=== PATIENT | female | born 1955 | race Caucasian/White ===

== ENCOUNTER 2025-02-22 10:10 | Emergency (ER) | payer OTHER, SELFPAY ==
[2025-02-22] VITALS (7 sets, daily range): BP systolic 117–129; BP diastolic 77–102; PULSE 115–146; RESP 16–27; TEMP 36.9–37.7; O2SAT 95–99; BMI 40.5; BMI 34.9
--- NOTE | 2025-02-22 10:12 | CT_ITS ---
PROCEDURE: STROKE BRAIN/HEAD WITHOUT CONT 02/22/2025 REASON FOR EXAM: NEURO DEFICIT, ACUTE, STROKE SUSPECTED TECHNIQUE: Procedure Code: CTBR.ST Modality: CT Procedure: STROKE BRAIN/HEAD WITHOUT CONT Coronal and Sagittal reconstruction series were provided. One or more dose reduction techniques were used (e.g., Automated exposure control, adjustment of the mA and/or kV according to patient size, use of iterative reconstruction technique. RADIATION DOSE SUMMARY: CTDlvol: 45 mGy DLP: 863 mGycm COMPARISON: None FINDINGS: Brain: Geographic low-density is seen in the left MCA distribution to include the M1, M2 and M3 distributions. There is also involvement of the insular cortex. There does not appear to be any involvement of the basal ganglia (ASPECTS 6). Mild mass effect is seen with 4.5 mm right midline subfalcine shift. No hemorrhage seen. CSF Spaces: Mild generalized cerebral atrophy Sinuses/Mastoids: Mastoid air cells are clear. Ceruminous seen in the external auditory canals. Sclerosis, thickening and partial opacification of the right maxillary sinus from chronic sinusitis. Frontal sinuses are nearly aplastic in the ethmoid sinuses are clear. Partial opacification right sphenoid sinus. Bones: No fracture CT/STROKE Brain/Head without Cont IMPRESSION: 1. No hemorrhage. Ischemia in the left MCA distribution as above. Mild midli ne subfalcine shift 4.5 mm to the right. 2. Chronic right maxillary sinusitis. 3. CTA is pending. Findings and impression of this report were called directly to Dr. Aponte at 10:27 AM EST. Reading Location: [id number]
--- NOTE | 2025-02-22 10:12 | EKG12_ITS ---
Test Reason : STROKE Blood Pressure : */* mmHG Vent. Rate : 115 BPM Atrial Rate : 322 BPM P-R Int : * ms QRS Dur : 78 ms QT Int : 358 ms P-R-T Axes : * 2 28 degrees QTcB Int : 495 ms Atrial flutter with variable A-V block Cannot rule out Inferior infarct , age undetermined QTcB >= 480 msec Abnormal ECG Confirmed by Jai Haywood ([id number]), social media editor NIGHAT BEDOLLA ([id number]) on 02/23/2025 10:58:24 AM Referred By: Confirmed By: Jai Haywood
--- NOTE | 2025-02-22 10:12 | CT_ITS ---
PROCEDURE: STROKE CTA HEAD AND NECK W/CON 02/22/2025 REASON FOR EXAM: NEURO DEFICIT, ACUTE, STROKE SUSPECTED TECHNIQUE: Procedure Code: CTCTA.ST.HN Modality: CT Procedure: STROKE CTA HEAD AND NECK W/CON Multiplanar Sagittal and Coronal images were obtained. 3D post processing was performed CONTRAST: Isovue 370 VOLUME: 100 mL One or more dose reduction techniques were used (e.g., Automated exposure control, adjustment of the mA and/or kV according to patient size, use of iterative reconstruction technique). RADIATION DOSE SUMMARY: CTDlvol: 53 mGy DLP: 691 mGycm COMPARISON: Head CT of the same day FINDINGS: Aortic Arch: Normal size and branching pattern. No significant atherosclerotic plaque. Brachiocephalic and Subclavians: Unremarkable RIGHT Carotid: Right CCA: Unremarkable. Right ICA: Mild atherosclerosis cavernous and supraclinoid portions. Maximum stenosis (NASCET): 0 % Right ECA: Unremarkable. LEFT Carotid: Left CCA: Unremarkable. Left ICA: Mild atherosclerosis cavernous and supraclinoid portions Maximum stenosis (NASCET): 0 % Left ECA: Unremarkable. Vertebrals: Codominant. Arise from the subclavians. Both vertebrals form the basilar. RIGHT Vertebral: Unremarkable. LEFT Vertebral: Unremarkable. 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 Aneurysm or avm: No intracranial aneurysms or large vascular malformations are identified. Anterior cerebral arteries: Unremarkable. Middle cerebral arteries: Normal on the right. No thrombus seen on the left but the vessel beyond the M2 distribution is very small caliber. Basilar artery: Small caliber but patent. Posterior cerebral arteries: origin bilaterally. Hypoplastic left P1 segment. Other major branches of the posterior circulation: Unremarkable. Major venous structures: Unremarkable. Other findings: Neck: No lymphadenopathy. Lungs: Lung apices are clear. Bones: CT/STROKE CTA Head AND Neck W/Con IMPRESSION: 1. No large vessel occlusion. Patent but pruned left MCA vasculature M2 and b eyond. 2. origin left posterior cerebral arteries. 3. No aneurysm in the head or neck. No carotid stenosis. Reading Location: [id number]
--- NOTE | 2025-02-22 10:13 | EDS_ITS ---
HPI History of Present Illness Chief Complaint: Stroke Alert Onset/Context/Timing Onset: Yesterday (6 PM) Timing: Continuous Quality and Location: Positive for Right Facial Droop, Right Arm Weakness and Right Leg Weakness Narrative Narrative: Patient presents with right-sided weakness was noticed today. Patient was last known well at 6 PM last evening. Patient is aphasic and is a poor informant. EMS noted patient to have right-sided facial weakness, right upper and right lower extremity weakness. EMS reports patient's blood sugar was 107. EMS noted that the left pupil was reactive and the right pupil was pinpoint. PFSH PFSH Home Medications ?Medication ?Instructions ?Recorded ?Last Taken ?Type albuterol sulfate 90 mcg/actuation 2 puff inhalation Q 4H PRN PRN 06/22/14 07/01/14 08:30 History aerosol inhaler (Ventolin HFA) Wheezing budesonide 180 mcg/actuation 2 puff inhalation DAILY 1 07/01/14 08:30 History breath activated powder inhaler (Pulmicort Flexhaler) hydrochlorothiazide 25 mg tablet 25 mg PO DAILY Unknown History levothyroxine 125 mcg tablet 125 mcg PO DAILY 06/22/14 Unknown History metoprolol tartrate 100 mg tablet 100 mg PO BID 07/01/14 06:30 History multivitamin,[id number] 27 1 tab PO QHS 06/22/14 Unknown History mg-0.4 mg tablet (Therems-M) oxycodone-acetaminophen 5 mg-325 1 - 2 tab PO Q4H PRN PRN Pain #30 07/01/14 Unknown Rx mg tablet tabs Allergy/AdvReac Type Severity Reaction Status Date / Time amoxicillin Allergy Rash Verified 06/22/14 14:32 cephalexin monohydrate (From Allergy Rash Verified 06/22/14 14:34 Keflex) minocycline Allergy Rash Verified 06/22/14 14:34 Penicillins Allergy Rash Verified 06/22/14 14:32 Sulfa (Sulfonamide Allergy Rash Verified 06/22/14 14:32 Antibiotics) Social History Smoking Status: Former smoker ROS ROS ED Review of Systems ROS Unobtainable: due to encephalopathy EXAM Physical Exam Const Vital Signs: 02/22/25 10:11 02/22/25 10:20 02/22/25 10:26 Temperature 98.4 F 98.7 F 98.7 F Temperature Source Oral Temporal Oral Pulse Rate 120 H 125 H 146 H Respiratory Rate 16 27 H 22 H Blood Pressure 122/102 H 117/77 125/96 H Blood Pressure Mean 108 90 105 Pulse Ox 97 95 95 Oxygen Delivery Method Room Air Room Air Room Air 02/22/25 10:36 02/22/25 10:37 02/22/25 10:55 Temperature 98.7 F 99.8 F H Temperature Source Temporal Pulse Rate 126 H 126 H Respiratory Rate 19 H 21 H Blood Pressure 122/102 H 118/91 H Blood Pressure Mean 108 100 Pulse Ox 95 97 Oxygen Delivery Method Room Air Room Air Positive well nourished and well developed General Appearance ED: well developed and NAD HEENT Reports moist mucous membranes Neck supple and no JVD Resp normal respiratory effort and clear to auscultation bilaterally Cardio Rate: tachycardic Rhythm: abnormal rhythm irregularly irregular GI soft to palpation, non-tender and non-distended Neuro Neuro Narrative: Strength is 5/5 of the left upper and lower extremities. Strength is 0/5 on the right upper and lower extremities. There is right facial droop noted. Patient does not speak. Sensorium / Orientation: alert Speech: Negative for speech normal MDM MDM MDM Narrative Medical decision making narrative: Differential diagnosis includes stroke, intracranial bleeding, cardiac dysrhythmia, cardiac ischemia, electrolyte abnormality, large vessel occlusion, carotid stenosis, and hypertensive emergency. EKG will be obtained to assess for cardiac dysrhythmia and cardiac ischemia. CT scan of the brain will be obtained to assess for intracranial bleeding and stroke. CTA of the head and neck will be obtained to assess for large vessel occlusion and carotid stenosis. Chest x-ray will be obtained to assess for pneumonia and bronchitis. CBC will be obtained to assess for leukocytosis and anemia. Basic metabolic profile will be obtained to assess for electrolyte abnormality renal function. PT with INR and PTT will be obtained to assess for coagulopathy. High-sensitivity troponin will be obtained to assess for cardiac ischemia. History & Record Review Discussion w/independent historian: EMS personnel Additional record(s) reviewed:: Prior outpatient record Lab Data Attestation: I reviewed the patient's lab results. Lab results narrative: CBC was reviewed. Hemoglobin is slightly elevated at 17.1. The remainder is within normal limits. Basic metabolic profile was reviewed and was within normal limits. PT with INR and PTT were reviewed and were within normal limits. High-sensitivity troponin was reviewed and was normal at 10. Labs: Laboratory Results - last 24 hr 02/22/25 10:15 WBC 7.1 RBC 5.84 H Hgb 17.1 H Hct 49.0 H MCV 83.9 MCH 29.3 MCHC 34.9 RDW Std Deviation 44.0 H RDW Coeff of Jayy 14.6 Plt Count 218 MPV 9.6 Immature Gran % (Auto) 0.300 Neut % (Auto) 86.7 H Lymph % (Auto) 10.8 L [place] % (Auto) 2.1 Eos % (Auto) 0.0 Baso % (Auto) 0.1 Absolute Neuts (auto) 6.2 Absolute Lymphs (auto) 0.77 L Nucleated RBC % 0 PT 13.1 INR 1.0 APTT 24.6 Sodium 133 Potassium 4.1 Chloride 97 L Carbon Dioxide 22.6 Anion Gap 13 BUN 12 Creatinine 0.77 Estim Creat Clear Calc 62.55 Est GFR (MDRD) Non-Af 84 BUN/Creatinine Ratio 15.4 Glucose 108 H Calcium 9.4 Troponin T High Sens 10 Radiography Diagnostic Testing: Clinical Impression(s) from Imaging Studies Brain CT 02/22/25 10:12 IMPRESSION: 1. No hemorrhage. Ischemia in the left MCA distribution as above. Mild midline subfalcine shift 4.5 mm to the right. 2. Chronic right maxillary sinusitis. 3. CTA is pending. Findings and impression of this report were called directly to Dr. Aponte at 10:27 AM EST. Reading Location: [facility] Head/Neck CTA 02/22/25 10:12 IMPRESSION: 1. No large vessel occlusion. Patent but pruned left MCA vasculature M2 and beyond. 2. origin left posterior cerebral arteries. 3. No aneurysm in the head or neck. No carotid stenosis. Reading Location: [facility] CT scan of the brain was obtained. There is no intracranial bleeding. There is ischemia in the left MCA distribution. There is mild midline shift of 4.5 mm to the right. This was interpreted by the radiologist and was also independently reviewed by myself. CTA of the head and neck was obtained. There is no large vessel occlusion. But there is left MCA decreased vasculature at the M2 and beyond. There is no a neurysm. There is no carotid stenosis. This was interpreted by the EKG Initial EKG: Attestation: I personally reviewed and interpreted this EKG as follows: Interpretation: Atrial Flutter (115) and Non-Specific ST Changes Comments: EKG was obtained. On my independent interpretation, shows atrial flutter with variable AV block with a rate of 115. QRS interval was normal at 78 ms. QTc interval is normal at 495 ms. [place] was normal. There are no acute ST or T wave changes noted. Prior EKG tracings: not available for review Prior: No Prior Management Discussion w/another healthcare provider: Branch Account Manager and Radiologist Treatment and Re-Evaluation Narrative: Case was discussed with the stroke neurologist. Patient and family were advised of the findings. Stroke neurologist recommended emergent transfer to [facility] for definitive treatment. Patient will be transferred to the emergency department there. Patient and family understand and are agreeable with the plan. All questions were answered. Discharge Plan Triage Chief Complaint: Stroke Alert ED Provider: Joe Aponte Dx/Rx/DC Orders Clinical Impression: Acute stroke due to embolism of left middle cerebral artery, Atrial flutter, Hypertension Prescriptions: No Action metoprolol tartrate 100 MG tablet 100 mg PO BID levothyroxine 125 MCG tablet 125 mcg PO DAILY hydrochlorothiazide 25 MG tablet 25 mg PO DAILY multivitamin,[id number] [Therems-M] 1 TABLET tablet 1 tab PO QHS budesonide [Pulmicort Flexhaler] 1 PUFF inhaler 2 puff inhalation DAILY albuterol sulfate [Ventolin HFA] 1 INHALER inhaler 2 puff inhalation Q4H PRN PRN (Reason: Wheezing) oxycodone-acetaminophen 1 TABLET tablet 1 - 2 tab PO Q4H PRN PRN (Reason: Pain) Qty: 30 0RF Primary Care Provider: Dada Emmanuel Referrals: Dada Emmanuel MD [Primary Care Provider] - Print Language: Swedish Disposition Disposition: Acute Care Hospital Discharge Location: [facility] [place] NIHSS NIHSS 1a. Level of Consciousness: 0 - Alert; keenly responsive 1b. LOC Questions: 2 - Answers NEITHER question correctly 4. Facial Palsy: 2 - Partial paralysis (total or near-total paralysis of lower face) 5a. Left Arm: 0 - No drift; arm holds 90 (or 45) degrees for full 10 seconds 5b. Right Arm: 3 - No effort against gravity; arm falls 6a. Left Le - No drift; leg holds 30-degree position for full 5 seconds 6b. Right Le - No effort against gravity; leg falls to bed immediately 7. Limb Ataxia: 1 - Present in 1 limb 9. Best Language: 2 - Severe aphasia; 10. Dysarthria: 2 - Severe dysarthria; Total: 15 Stroke Questions Stroke Team Activated: Yes Reviewed Inclusion/Exclusion criteria: Yes IV Thrombolytic Administered: No
--- OUTSIDE RECORDS SUMMARY | 2025-02-22 10:26 | XMS RPT_ITS | CCD ---
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 Name Role Phone Junaita Emmanuel MD Primary Care Provider EZE LINN Referring Unavailable JUANITA EMMANUEL Primary Care Unavailable Juanita Emmanuel MD Primary Care Provider Tannhof RN CARDIOVASCULAR ICU.Melissa WOOD Unavailable Scotty RN CARDIOVASCULAR ICU.Espinoza WOOD Unavailable Tannhof RN CARDIOVASCULAR ICU.Melissa WOOD Unavailable JUANITA EMMANUEL Primary Care Unavailable JUANITA EMMANUEL Attending Unavailable JUANITA EMMANUEL Primary Care Unavailable JUANITA EMMANUEL Primary Care Unavailable EZE LINN P Attending Unavailable JUANITA EMMANUEL Referring Unavailable FLORABROCKJUANITA Primary Care Unavailable JUANITA EMMANUEL Attending Unavailable JUANITA EMMANUEL Primary Care Unavailable JUANITA EMMANUEL Referring Unavailable JUANITA EMMANUEL Primary Care Unavailable EZE LINN P Referring Unavailable JUANITA EMMANUEL Primary Care Unavailable Allergies Allergy Classification Reported Allergen(s) Allergy Type Date of Onset Reaction(s) Facility Cephalosporins (antibiotic) (1 source) Cephalexin Drug Allergy 03-05-2005 [facility] Minocycline (1 source) Minocycline Drug Allergy 05-25-2014 [facility] Penicillins (antibiotic) (1 source) Amoxicillin Drug Allergy 03-05-2005 [facility] Sulfonamides (antibiotic) (1 source) Sulfonamides (Antibiotic) Drug Allergy 03-05-2005 [facility] (20 sources) Amoxicillin; Translations: [AMOXICILLIN] Drug Allergy 03-05-2005 [facility] (20 sources) Cephalexin; Translations: [CEPHALEXIN] Drug Allergy 03-05-2005 [facility] (20 sources) Minocycline; Translations: [MINOCYCLINE] Drug Allergy 05-25-2014 [facility] (20 sources) Sulfonamides (Antibiotic); Translations: [SULFA (SULFONAMIDE ANTIBIOTICS)] Drug Allergy 03-05-2005 [facility] Medications Current Medications Medication Drug Class(es) Dates Sig (Normalized) Sig (Original) [id number] actuat albuterol 0.09 mg/actuat metered dose inhaler (20 sources) beta2-Adrenergic Agonist Start: 04-22-2023 End: 01-06-2024 take 2 puff(s) by inhalation every four hours as needed for wheezing albuterol HFA (PROVENTIL HFA, VENTOLIN HFA) 90 mcg/actuation inhaler Indications: Uncomplicated asthma, unspecified asthma severity, unspecified whether persistent (HCC) Inhale 2 Puffs as instructed every 4 hours as needed for wheezing/shortness of breath. 18 g 5 01/06/2024 Active Start: 01-25-2021 End: 04-20-2023 take 2 puff(s) by inhalation every four hours as needed for wheezing albuterol HFA (PROVENTIL HFA, VENTOLIN HFA) 90 mcg/actuation inhaler Indications: Uncomplicated asthma, unspecified asthma severity, unspecified whether persistent Inhale 2 Puffs as instructed every 4 hours as needed for wheezing/shortness of breath. 18 g 5 03/30/2022 04/20/2023 Discontinued Comment on above: Inhale 2 Puffs as in structed every 4 hours as needed for wheezing/shortness of breath. bifidobacterium animalis [id number] unt / bifidobacterium longum [id number] unt / lactobacillus acidophilus [id number] unt oral capsule (7 sources) Start: 2023 End: 2023 take 1 capsule by mouth once daily L.acidophilus-B.an imalis-B.longum (FLORAJEN DIGESTION) 15 billion cell capsule Indications: Cellulitis of skin Take 1 capsule by mouth once daily. 30 capsule 01/15/2024 02/14/2024 Active Budesonide (20 sources) Corticosteroid Start: 2023 take 1 puff(s) by inhalation twice daily, then take 1 puff(s) by inhalation twice daily budesonide (PULMICORT FLEXHALER) 180 mcg/actuation aepb Indications: Uncomplicated asthma, unspecified asthma severity, unspecified whether persistent (HCC) Inhale 1 Puff as instructed two times a day. One puff twice daily. 3 Each 3 01/06/2024 Active Start: 01-06-2024 take 1 puff(s) by in halation twice daily, then take 1 puff(s) by inhalation twice daily budesonide (PULMICORT FLEXHALER) 180 mcg/actuation aepb Indications: Uncomplicated asthma, unspecified asthma severity, unspecified whether persistent Inhale 1 Puff as instructed two times a day. One puff twice daily. 3 Each 3 01/06/2024 Active Start: 11-21-2022 End: 01-06-2024 take 1 puff(s) by inhalation twice daily, then take 1 puff(s) by inhalation twice daily budesonide (PULMICORT FLEXHALER) 180 mcg/actuation aepb Indications: Uncomplicated asthma, unspecified asthma severity, unspecified whether persistent Inhale 1 Puff as instructed twice daily. One puff twice daily. 3 Each 3 11/21/2022 01/06/2024 Discontinued Start: 11-21-2022 take 1 puff(s) by in halation twice daily, then take 1 puff(s) by inhalation twice daily budesonide (PULMICORT FLEXHALER) 180 mcg/actuation aepb Indications: Uncomplicated asthma, unspecified asthma severity, unspecified whether persistent Inhale 1 Puff as instructed twice daily. One puff twice daily. 3 Each 3 11/21/2022 Active Start: 11-14-2021 take 1 puff(s) by in halation twice daily, then take 1 puff(s) by inhalation twice daily budesonide (PULMICORT FLEXHALER) 180 mcg/actuation aepb Inhale 1 Puff as instructed twice daily. One puff twice daily. 3 Each 3 11/14/2021 Active Start: 09-23-2020 End: 11-14-2021 take 1 puff(s) by inhalation twice daily, then take 1 puff(s) by inhalation twice daily budesonide (PULMICORT FLEXHALER) 180 mcg/actuation aepb Inhale 1 Puff as instructed twice daily. One puff twice daily. 3 Each 3 09/23/2020 11/14/2021 Discontinued Start: 09-23-2020 take 1 puff(s) by in halation twice daily, then take 1 puff(s) by inhalation twice daily budesonide (PULMICORT FLEXHALER) 180 mcg/actuation aepb Inhale 1 Puff as instructed twice daily. One puff twice daily. 3 Each 3 09/23/2020 Active Comment on above: Inhale 1 Puff as ins tructed twice daily. One puff twice daily. clindamycin 300 mg oral capsule (3 sources) Lincosamide Antibacterial Start: 01-15-20 End: 01-25-20 take 1 capsule by mouth three times daily clindamycin (CLEOCIN) 300 mg capsule Indications: Cellulitis of skin Take 1 capsule by mouth three times a day for 10 days. 30 capsule 0 01/15/2024 01/25/2024 Active fluocinonide 0.5 mg/ml topical cream (15 sources) Corticosteroid Start: 01-22-20 25 End: 02-05-20 fluocinonide (LIDEX) 0.05 % cream Indications: Psoriasis Apply 1 application to affected area two times a day for 14 days. 90 g 3 01/21/2025 02/04/2025 Active Start: 09-30-2023 End: 10-14-2023 fluocinonide (LIDEX) 0.05 % cream Indications: Psoriasis Apply 1 application to affected area two times a day for 14 days. 90 g 3 09/30/2023 10/14/2023 Active Start: 07-20-2021 fluocinonide ( LIDEX) 0.05 % cream Indications: Psoriasis Apply 1 application to affected area twice daily. 90 g 3 07/20/2021 Active Comment on above: Apply 1 application to affected area twice daily. Apply 1 application to affected area two times a day for 14 days. hydroCHLOROthiazide 25 mg oral tablet (20 sources) Thiazide Diuretic Start : 04-25 End: 03-16 take 1 tablet by mouth once daily at breakfast hydroCHLOROthiazide 25 mg tablet Indications: Essential hypertension, benign Take 1 tablet by mouth daily with breakfast. 90 tablet 3 03/17/2024 Active Comment on above: Take 1 tablet by benton th daily with breakfast. levothyroxine sodium 0.112 mg oral tablet (20 sources) l-Thyroxine Start : 05-16 End: 03-17 take 1 tablet by mouth once daily for thyroid dysfunction levothyroxine (LEVOXYL) 112 mcg tablet Take 1 tablet by mouth once daily. Take on empty stomach. For thyroid. 90 tablet 3 03/17/2024 03/17/2025 Active Start: 07-20-2021 End: 05-16-2022 take 1 tablet by mouth once daily levothyroxine (LEVOXYL) 125 mcg tablet Take 1 tablet by mouth once daily. 90 tablet 3 07/20/2021 05/16/2022 Discontinued Comment on above: Take 1 tablet by benton th once daily. Take 1 tablet by benton th once daily. Take on empty stomach. For thyroid. lisinopril 5 mg oral tablet (9 sources) Angiotensin Converting Enzyme Inhibitor Start: End: 2 take 1 tablet by mouth twice daily lisinopril (ZESTRIL, PRINIVIL) 5 mg tablet Indications: Essential hypertension, benign Take 1 tablet by mouth twice daily. 60 tablet 11 11/14/2021 05/15/2022 Discontinued Comment on above: Take 1 tablet by benton th twice daily. losartan potassium 25 mg oral tablet (20 sources) Angiotensin 2 Receptor Rajinder Start: 3 End: 4 take 1 tablet by mouth once daily losartan (COZAAR) 25 mg tablet Indications: Essential hypertension, benign Take 1 tablet by mouth once daily. 90 tablet 3 03/17/2024 Active Start: 05-15-2022 End: 04-20-2023 take 1 tablet by mouth once daily losartan (COZAAR) 25 mg tablet Indications: Essential hypertension, benign Take 1 tablet by mouth once daily. 90 tablet 3 05/15/2022 04/20/2023 Discontinued Comment on above: Take 1 tablet by benton th once daily. metoprolol tartrate 100 mg oral tablet (9 sources) beta-Adrenergic Rajinder Start: 01-26-20 End: 04-25-20 metoprolol tartrate, short acting, (LOPRESSOR) 100 mg tablet Indications: Essential hypertension, benign Take 1 tablet by mouth as directed. Take 1 tablet in morning and 1/2 tablet (50 mg) each pm. 135 tablet 3 01/25/2021 04/25/2022 Discontinued Comment on above: Take 1 tablet by benton th as directed. Take 1 tablet in morning and 1/2 tablet (50 mg) each pm. metroNIDAZOLE 7.5 mg/ml topical cream (4 sources) Nitroimidazole Antimicrobial Start: 01-22-20 metroNIDAZOLE (METROCREAM) 0.75 % cream Indications: Rosacea Apply to affected area two times a day. 45 g 5 01/21/2025 Active montelukast 10 mg oral tablet (20 sources) Leukotriene Receptor Antagonist Start: 01-26-20 End: 01-06-20 24 take 1 tablet by mouth once daily at bedtime montelukast (SINGULAIR) 10 mg tablet Take 1 tablet by mouth daily at bedtime. 90 tablet 3 01/06/2024 Active Comment on above: Take 1 tablet by benton th daily at bedtime. nirmatrelvir tablet 300 mg (150 mg x 2) and ritonavir tablet 100 mg in a dose pack (PAXLOVID) (1 source) Start: 02-17-20 End: 02-22-20 nirmatrelvir tablet 300 mg (150 mg x 2) and ritonavir tablet 100 mg in a dose pack (PAXLOVID) Indications: COVID Administer TWO pink nirmatrelvir 150 mg tablets and ONE white ritonavir 100 mg tablet for a total of three tablets twice daily. 30 tablet 02/17/2024 02/22/2024 Active Completed/Discontinued Medications Medication Drug Class(es) Dates Sig (Normalized) Sig (Original) anastrozole 1 mg oral tablet (11 sources) Aromatase Inhibitor Start: 07-20-2021 take 1 tablet by mouth once daily anastrozole (ARIMIDEX) 1 mg tablet Take 1 tablet by mouth once daily. 90 tablet 3 07/20/2021 Active Comment on above: Take 1 tablet by benton th once daily. Lidocaine (1 source) Antiarrhythmic, Amide Local Anesthetic Start: 01-29-2024 End: 01-29-2024 lidocaine 10 mg/mL (1 %) injection (XYLOCAINE) Problems Active Problems Problem Classification Problem Date Documented Da te Episodic/Chronic Asthma (20 sources) Asthma; Translations: [Unspecified asthma, uncomplicated] Onset: 07-23-2016 07-23-2016 Chronic Cancer of breast (6 sources) History of malignant neoplasm of breast; Translations: [Personal history of malignant neoplasm of breast] Episodic Essential hypertension (20 sources) Benign essential hypertension; Translations: [Essential (primary) hypertension] Onset: 12-12-2009 Chronic Other and unspecified benign neoplasm (2 sources) Fibroadenoma of right breast; Translations: [Benign neoplasm of right breast] 02-10-2024 Episodic Other connective tissue disease (2 sources) Swollen calf; Translations: [Other specified soft tissue disorders] 01-15-2024 Episodic Other inflammatory condition of skin (20 sources) Psoriasis; Translations: [Psoriasis, unspecified] Onset: 12-19-2011 12-19-2011 Chronic Other inflammatory condition of skin (1 source) Rosacea; Translations: [Rosacea, unspecified] 01-21-2025 Chronic Other inflammatory condition of skin (1 source) Psoriasis, unspecified; Translations: [Psoriasis] Onset: 12-19-2011 Chronic Other inflammatory condition of skin (1 source) Rosacea, unspecified; Translations: [Rosacea] Onset: 01-21-2025 Chronic Other screening for suspected conditions (not mental disorders or infectious disease) (20 sources) Patient encounter status; Translations: [Encounter for screening mammogram for malignant neoplasm of breast] Onset: 01-29-2024 Episodic Screening and history of mental health and substance abuse codes (2 sources) Encounter for screening for depression; Translations: [Encounter for screening examination for other mental health and behavioral disorders] Onset: 01-21-2025 Episodic Skin and subcutaneous tissue infections (1 source) Cellulitis of skin; Translations: [Cellulitis, unspecified] 01-15-2024 Episodic Thyroid disorders (20 sources) Hypothyroidism; Translations: [Hypothyroidism, unspecified] Onset: 04-04-2015 04-04-2015 Chronic Varicose veins of lower extremity (2 sources) Asymptomatic varicose veins of unspecified lower extremity; Translations: [Asymptomatic varicose veins] 01-15-2024 Episodic Viral infection (1 source) Disease caused by 2019-nCoV; Translations: [COVID-19] 02-17-2024 Episodic Past or Other Problems Problem Classification Problem Date Documented Da te Episodic/Chronic Cancer of breast (20 sources) Malignant tumor of breast ; Translations: [Malignant neoplasm of unspecified site of unspecified female breast] Onset: 05-25-2014 Resolved: 01-21-2025 05-25-2014 Chronic Other and unspecified benign neoplasm (1 source) Benign neoplasm of right breast; Translations: [Fibroadenoma of breast, right] Onset: 08-12-2024 Episodic Other nutritional; endocrine; and metabolic disorders (20 sources) Body mass index 40+ - severely obese; Translations: [Morbid (severe) obesity due to excess calories] Onset: 09-18-2017 Resolved: 01-21-2025 09-18-2017 Chronic Residual codes; unclassified (20 sources) Family history of breast cancer; Translations: [Family history of malignant neoplasm of breast] Onset: 10-02-2006 10-02-2006 Episodic Unclassified (1 source) Patient encounter status 01-21-2025 Results Test Name Value Interpretation Reference Range Facility [facility] 02-02 [facility] * * *Final Report* * * DATE OF EXAM: Feb 02 2025 10:01AM ARTIE [id number] - [facility]CRE[facility] / PROCEDURE REASON: Encounter for screening mammogram for malignant neoplasm of breast * * * * Physician Interpretation * * * * RESULT: [place] [address] #[id number] - [facility] HISTORY: 69 year-old patient presents for screening. Patient is asymptomatic in both breasts. The patient has the following personal history of breast cancer: breast cancer in the left breast in 2014. The patient has a family history of breast cancer. COMPARISON STUDIES: The present examination has been compared to prior imaging studies dated 03/24/2020 (mammogram), 03/27/2021 (mammogram), 03/29/2022 (mammogram) and 04/16/2023 (mammogram). MAMMOGRAM TECHNIQUE: The study was acquired using full field digital technology and interpreted from soft copy. Digital Breast Tomosynthesis (DBT) images were obtained and used to assist in the interpretation of this examination. MAMMOGRAM FINDINGS: The breasts are heterogeneously dense, which may obscure small masses. There are post-operative changes in the left breast. There are no significant interval changes. No suspicious masses, calcifications or other abnormalities are seen in either breast. IMPRESSION: There is no mammographic evidence of malignancy. Routine screening mammogram is recommended. Annual mammogram will be due in 1 year. BI-RADS Category 2: Benign RISK: Due to the reported patient's history, the patient's estimated lifetime risk of developing breast cancer cannot be assessed at this time. We encourage all patients to talk with their providers about their risk assessment, further recommendations for managing breast health, and appropriate supplemental screening options if the patient has dense breast tissue. Interpreting Radiologist: Tiara Mariee M.D. Electronically signed on: 02/04/2025 Collet Maker: TONY Transcribe Date/Time: Feb 02 2025 9:48A Dictated by: TIARA MARIEE MD This examination was interpreted and the report reviewed and electronically signed by: TIARA MARIEE MD on Feb 04 2025 1:59PM EST [id number] Normal [facility] CNOVon 01-21-2025 CNOV Office Visit (FAMPWS ) KENDY ALBA ([id number]) 1955 F Date Time Provider Department 01/21/25 9:20 AM [facility] During your visit today, we recorded the following information about you: Pulse Respiration Blood pressure Weight 66/minute 16/minute 128/76 82.2 kg Juanita Emmanuel MD 01/21/2025 9:59 AM Signed Chief Complaint Patient presents with: Follow Up HPI Kendy Alba is a 69 year old female who presents here today for medication follow up. Has an advanced directive. Declined colon cancer screening tests and Hep C screening. No bowel, Gi, or urinary issues. Thyroid: Taking Levoxyl 112 mcg daily. No missed dosages. HTN: Taking Losartan 25 mg daily and HCTZ 25 mg daily. No chest pains, dizziness, or Shortness of Breath. Checks BP occ at home, yesterday reading was 120/77 and HR 63. Asthma: Stable, uses Albuterol inhaler as needed, Pulmicort inhaler 1 puff BID and Singulair 10 mg daily. Kendy reports erythema on her face, which she suspects is rosacea. The erythema is chronic but varies in intensity, worsening with sun exposure. She also has a history of psoriasis, for which she uses a steroid cream. Kendy inquires about treatment options for her facial erythema. Past medical history, appointments, medications, allergies reviewed. Previous Medical History PAST MEDICAL HISTORY Diagnosis Date Essential hypertension, benign Family history of breast cancer Malignant neoplasm of breast (female), unspecified site left breast ca Psoriasis Unspecified asthma(493.90) Unspecified hypothyroidism Previous Surgical History PAST SURGICAL HISTORY Procedure Laterality Date BX OF BREAST; INCISIONAL Right 01/29/2024 PAST SURGICAL HISTORY OF 07/01/2014 left breast lumpectomy REMV CATARACT EXTRACAP,INSERT LENS 12/2022 [facility] REMV CATARACT EXTRACAP,INSERT LENS 02/27/2023 [facility] Family History FAMILY HISTORY Problem Relation Age of Onset Coronary Artery Disease Mother other (DVT/PE) Daughter Patient Allergies ALLERGIES Allergen Reactions Amoxicillin Hives Keflex [Cephalexin] Hives Minocycline Hives Sulfa (Sulfonamide * Hives Current Medications Current Outpatient Medications on File Prior to Visit Medication Sig losartan (COZAAR) 25 mg tablet Take 1 tablet by mouth once daily. hydroCHLOROthiazide 25 mg tablet Take 1 tablet by mouth daily with breakfast. levothyroxine (LEVOXYL) 112 mcg tablet Take 1 tablet by mouth once daily. Take on empty stomach. For thyroid. montelukast (SINGULAIR) 10 mg tablet Take 1 tablet by mouth daily at bedtime. albuterol HFA (PROVENTIL HFA, VENTOLIN HFA) 90 mcg/actuation inhaler Inhale 2 Puffs as instructed every 4 hours as needed for wheezing/shortness of breath. budesonide (PULMICORT FLEXHALER) 180 mcg/actuation aepb Inhale 1 Puff as instructed two times a day. One puff twice daily. No current facility-administered medications on file prior to visit. Social History Social History Tobacco Use Smoking status: Former Current packs/day: 0.00 Average packs/day: 1 pack/day for 15.0 years (15.0 ttl pk-yrs) Types: Cigarettes Start date: 06/24/1983 Quit date: 06/24/1998 Years since quittin.5 Smokeless tobacco: Never Vaping Use Vaping status: Never Used Substance Use Topics Alcohol use: No Drug use: No EXAM: BP 128/76 Pulse 66 Resp 16 Wt 82.2 kg (181 lb 3.5 oz) LMP 06/25/2005 BMI 38.54 kg/m? General Appearance: Well appearing, alert, in no acute distress, well-hydrated, well nourished.. Skin: erythema of cheeks and forehead, some scaling of eyebrows with her psoriasis. Lungs: Lungs clear to auscultation. No wheezing, rhonchi, rales.. Heart: RRR without murmur, gallop, or rubs. No ectopy. Health Maintenance List Depression Screening Never done Anxiety Screening Never done Shingrix Vaccine(1 of 2) Never done RSV Vaccine(1 - Risk 60-74 years 1-dose series) Never done DTaP,Tdap,Td Vaccine(2 - Td or Tdap) due on 10/02/2016 Medicare Annual Wellness Visit Never done Mammogram Screening due on 04/16/2024 Advance Directive Discussion due on 06/24/2024 Colorectal Cancer Screening due on 01/28/2025 Hepatitis C Screening due on 01/21/2026 Annual PCP Team Chronic Disease Visit due on 02/16/2025 Influenza Vaccine(1) due on 02/22/2025 Diabetes Screening due on 01/08/2028 Lipid Screening due on 01/07/2030 Bone Density Screening Completed Pneumococcal Vaccine: 50+ Completed Cervical Cancer Screening Discontinued Data reviewed Appointment on 01/07/2025 Component Date Value Cholesterol, Total 01/07/2025 144 Triglyceride 01/07/2025 56 HDL Cholesterol 01/07/2025 49 LDL Cholesterol, Calcula* 01/07/2025 83 Non HDL Cholesterol 01/07/2025 95 VLDL Cholesterol 01/07/2025 9 TC:HDL Ratio 01/07/2025 2.94 LDL:HDL Ratio 01/07/2025 1.69 Fasting Time 01/08/20 (more content not included)... Normal [facility] CBC W Auto Differential pane l (Bld)on 01-07-2025 Basophils (Bld) [#/Vol] 0.05 10*3/uL Normal <0.11 [facility] Comment on above: Order Comment: Speci men Type: BLOOD SPECIMENOrdering Facility: [facility] Address: [address] [place] [address] Performed By: #### 5 7021-8 ####[facility] KAILEYWNCLIA [id number] [place] [address] [place] Basophils/100 WBC (Bld) 0.8 % Normal [facility] Comment on above: Order Comment: Speci men Type: BLOOD SPECIMENOrdering Facility: [facility] Address: [address] [place] [address] Performed By: #### 5 7021-8 ####[facility] HOSPITALEMEKALIA [id number] [place] [address] [place] Differential cell count method Nom (Bld) Auto Normal [facility] Comment on above: Order Comment: Speci men Type: BLOOD SPECIMENOrdering Facility: [facility] Address: [address] [place] [address] Performed By: #### 5 7021-8 ####[facility] DAYTONLIA [id number] [place] [address] [place] Eosinophils (Bld) [#/Vol] 0.15 10*3/uL Normal <0.46 [facility] Comment on above: Order Comment: Speci men Type: BLOOD SPECIMENOrdering Facility: [facility] Address: [address] [place] [address] Performed By: #### 5 7021-8 ####[facility] MILLWNCLIA [id number] [place] [address] [place] Eosinophils/100 WBC (Bld) 2.4 % Normal [facility] Comment on above: Order Comment: Speci men Type: BLOOD SPECIMENOrdering Facility: [facility] Address: [address] [place] [address] Performed By: #### 5 7021-8 ####[facility] MILLWNCLIA [id number] [place] [address] [place] Erythrocyte distribution width (RBC) [Ratio] 14.0 % Normal 11.5-15.0 [facility] Comment on above: Order Comment: Speci men Type: BLOOD SPECIMENOrdering Facility: [facility] Address: [address] [place] [address] Performed By: #### 5 7021-8 ####[facility] DAYTONAMELIA [id number] [place] [address] [place] Hematocrit (Bld) [Volume fraction] 43.0 % Normal 36.0-46.0 [facility] Comment on above: Order Comment: Speci men Type: BLOOD SPECIMENOrdering Facility: [facility] Address: [address] [place] [address] Performed By: #### 5 7021-8 ####[facility] DAYTONAMELIA [id number] [place] [address] [place] Hemoglobin (Bld) [Mass/Vol] 14.8 g/dL Normal 11.5-15.5 [facility] Comment on above: Order Comment: Speci men Type: BLOOD SPECIMENOrdering Facility: [facility] Address: [address] [place] [address] Performed By: #### 5 7021-8 ####[facility] HOSPITALJUANI [id number] [place] [address] [place] Immature granulocytes (Bld) [#/Vol] 10*3/uL Normal <0.10 [facility] Comment on above: Order Comment: Speci men Type: BLOOD SPECIMENOrdering Facility: [facility] Address: [address] [place] [address] Performed By: #### 5 7021-8 ####[facility]ITAL[facility]CL[facility] [id number] [place] [address] [place] Immature granulocytes/100 WBC (Bld) 0.3 % Normal [facility] Comment on above: Order Comment: Speci men Type: BLOOD SPECIMENOrdering Facility: [facility] Address: [address] [place] [address] Performed By: #### 5 7021-8 ####[facility] [id number] [place] [address] [place] Lymphocytes (Bld) [#/Vol] 1.28 10*3/uL Normal 1.00-4.00 [facility] Comment on above: Order Comment: Speci men Type: BLOOD SPECIMENOrdering Facility: [facility] Address: [address] [place] [address] Performed By: #### 5 7021-8 ####[facility] [id number] [place] [address] [place] Lymphocytes/100 WBC (Bld) 20.5 % Normal [facility] Comment on above: Order Comment: Speci men Type: BLOOD SPECIMENOrdering Facility: [facility] Address: [address] [place] [address] Performed By: #### 5 7021-8 ####[facility] [id number] [place] [address] [place] MCH (RBC) [Entitic mass] 28.9 pg Normal 26.0-34.0 [facility] Comment on above: Order Comment: Speci men Type: BLOOD SPECIMENOrdering Facility: [facility] Address: [address] [place] [address] Performed By: #### 5 7021-8 ####[facility] [id number] [place] [address] [place] MCHC (RBC) [Mass/Vol] 34.4 g/dL Normal 30.5-36.0 [facility] Comment on above: Order Comment: Speci men Type: BLOOD SPECIMENOrdering Facility: [facility] Address: [address] [place] [address] Performed By: #### 5 7021-8 ####[facility] KAILEYDandreNCLIA [id number] [place] [address] [place] MCV (RBC) [Entitic vol] 84.0 fL Normal 80.0-100.0 [facility] Comment on above: Order Comment: Speci men Type: BLOOD SPECIMENOrdering Facility: [facility] Address: [address] [place] [address] Performed By: #### 5 7021-8 ####[facility]ITALNCA [id number] [place] [address] [place] Monocytes (Bld) [#/Vol] 0.52 10*3/uL Normal <0.87 [facility] Comment on above: Order Comment: Speci men Type: BLOOD SPECIMENOrdering Facility: [facility] Address: [address] [place] [address] Performed By: #### 5 7021-8 ####[facility]ITALNCA [id number] [place] [address] [place] Monocytes/100 WBC (Bld) 8.3 % Normal [facility] Comment on above: Order Comment: Speci men Type: BLOOD SPECIMENOrdering Facility: [facility] Address: [address] [place] [address] Performed By: #### 5 7021-8 ####[facility] DAYTONLIA [id number] [place] [address] [place] Neutrophils (Bld) [#/Vol] 4.23 10*3/uL Normal 1.45-7.50 [facility] Comment on above: Order Comment: Speci men Type: BLOOD SPECIMENOrdering Facility: [facility] Address: [address] [place] [address] Performed By: #### 5 7021-8 ####[facility]ITALNCA [id number] [place] [address] [place] Neutrophils/100 WBC (Bld) 67.7 % Normal [facility] Comment on above: Order Comment: Speci men Type: BLOOD SPECIMENOrdering Facility: [facility] Address: [address] [place] [address] Performed By: #### 5 7021-8 ####[facility] [id number] [place] [address] [place] Nucleated RBC (Bld) [#/Vol] 10*3/uL Normal <0.01 [facility] Comment on above: Order Comment: Speci men Type: BLOOD SPECIMENOrdering Facility: [facility] Address: [address] [place] [address] Performed By: #### 5 7021-8 ####[facility] [id number] [place] [address] [place] Nucleated RBC/100 WBC (Bld) [Ratio] 0.0 /100 WBC Normal [facility] Comment on above: Order Comment: Speci men Type: BLOOD SPECIMENOrdering Facility: [facility] Address: [address] [place] [address] Performed By: #### 5 7021-8 ####[facility] DAYTONAMELIA [id number] [place] [address] [place] Platelet mean volume (Bld) [Entitic vol] 9.2 fL Normal 9.0-12.7 [facility] Comment on above: Order Comment: Speci men Type: BLOOD SPECIMENOrdering Facility: [facility] Address: [address] [place] [address] Performed By: #### 5 7021-8 ####[facility] HOS[facility]ITALNCLI [id number] [place] [address] [place] Platelets (Bld) [#/Vol] 183 10*3/uL Normal 150-400 [facility] Comment on above: Order Comment: Speci men Type: BLOOD SPECIMENOrdering Facility: [facility] Address: [address] [place] [address] Performed By: #### 5 7021-8 ####[facility]SONV[facility]LEWNCLIA [id number] [place] [address] [place] RBC (Bld) [#/Vol] 5.12 10*6/uL Normal 3.90-5.20 [facility] Comment on above: Order Comment: Speci men Type: BLOOD SPECIMENOrdering Facility: [facility] Address: [address] [place] [address] Performed By: #### 5 7021-8 ####[facility]ITALNCA [id number] [place] [address] [place] WBC (Bld) [#/Vol] 6.25 10*3/uL Normal 3.70-11.00 [facility] Comment on above: Order Comment: Speci men Type: BLOOD SPECIMENOrdering Facility: [facility] Address: [address] [place] [address] Performed By: #### 5 7021-8 ####[facility]ITALNCLIA [id number] [place] [address] [place] Comprehensive metabolic 2000 panelon 01-07-2025 Albumin [Mass/Vol] 4.1 g/dL Normal 3.9-4.9 [facility] Comment on above: Order Comment: Speci men Type: BLOOD SPECIMENOrdering Facility: [facility] Address: [address] [place] [address] Performed By: #### 2 4323-8 ####[facility]ITALNCLIA [id number] [place] [address] [place] ALP [Catalytic activity/Vol] 86 U/L Normal 34-123 [facility] Comment on above: Order Comment: Speci men Type: BLOOD SPECIMENOrdering Facility: [facility] Address: [address] [place] [address] Performed By: #### 2 4323-8 ####[facility] SONYA MILLTOWNCLIA [id number] [place] [address] [place] ALT [Catalytic activity/Vol] 11 U/L Normal 7-38 [facility] Comment on above: Order Comment: Speci men Type: BLOOD SPECIMENOrdering Facility: [facility] Address: [address] [place] [address] Performed By: #### 2 4323-8 ####[facility] SONYA MILLTOWNCLIA [id number] [place] [address] [place] Anion gap [Moles/Vol] 12 mmol/L Normal 8-15 [facility] Comment on above: Order Comment: Speci men Type: BLOOD SPECIMENOrdering Facility: [facility] Address: [address] [place] [address] Performed By: #### 2 4323-8 ####[facility] SONYA MILLTOWNCLIA [id number] [place] [address] [place] AST [Catalytic activity/Vol] 12 U/L Low 13-35 [facility] Comment on above: Order Comment: Speci men Type: BLOOD SPECIMENOrdering Facility: [facility] Address: [address] [place] [address] Performed By: #### 2 4323-8 ####[facility] SONYA MILLTOWNCLIA [id number] [place] [address] [place] Bilirubin [Mass/Vol] 0.7 mg/dL Normal 0.2-1.3 [facility] Comment on above: Order Comment: Speci men Type: BLOOD SPECIMENOrdering Facility: [facility] Address: [address] [place] [address] Performed By: #### 2 4323-8 ####[facility] HOSPITALWDELIA [id number] [place] [address] [place] Calcium [Mass/Vol] 9.3 mg/dL Normal 8.5-10.2 [facility] Comment on above: Order Comment: Speci men Type: BLOOD SPECIMENOrdering Facility: [facility] Address: [address] [place] [address] Performed By: #### 2 4323-8 ####[facility] MILLWNCLIA [id number] [place] [address] [place] Chloride [Moles/Vol] 96 mmol/L Low 98-107 [facility] Comment on above: Order Comment: Speci men Type: BLOOD SPECIMENOrdering Facility: [facility] Address: [address] [place] [address] Performed By: #### 2 4323-8 ####[facility] DAYTONLIA [id number] [place] [address] [place] CO2 [Moles/Vol] 26 mmol/L Normal 22-30 [facility] Comment on above: Order Comment: Speci men Type: BLOOD SPECIMENOrdering Facility: [facility] Address: [address] [place] [address] Performed By: #### 2 4323-8 ####[facility]LEWNCLIA [id number] [place] [address] [place] Creatinine [Mass/Vol] 0.77 mg/dL Normal 0.58-0.96 [facility] Comment on above: Order Comment: Speci men Type: BLOOD SPECIMENOrdering Facility: [facility] Address: [address] [place] [address] Performed By: #### 2 4323-8 ####[facility]ITALNCLIA [id number] [place] [address] [place] eGFRcr SerPlBld CKD-EPI 2020 84 mL/min/1.73m??? Normal >=60 [facility] Comment on above: Order Comment: Siobhan leonardo Type: BLOOD SPECIMENOrdering Facility: [facility] Address: [address] [place] [address] Result Comment: Ashly mated Glomerular Filtration Rate (eGFR) is calculated using the 2020 CKD-EPI creatinine equation. This equation utilizes serum creatinine, sex, and age as parameters. The creatinine assay has traceable calibration to isotope dilution-mass spectrometry. Refer to KDIGO guidelines for clinical interpretation. In patients with unstable renal function, e.g. those with acute kidney injury, the eGFR may not accurately reflect actual GFR. Performed By: #### 2 4323-8 ####[facility] [id number] [place] [address] [place] Glucose [Mass/Vol] 97 mg/dL Normal 74-99 [facility] Comment on above: Order Comment: Siobhan leonardo Type: BLOOD SPECIMENOrdering Facility: [facility] Address: [address] [place] [address] Result Comment: The [place] Diabetes Association (ADA) provides guidance for cutoff values for fasting glucose and random glucose. The ADA defines fasting as no caloric intake for at least 8 hours. Fasting plasma glucose results between 100 to 125 mg/dL indicate increased risk for diabetes (prediabetes). Fasting plasma glucose results greater than or equal to 126 mg/dL meet the criteria for diagnosis of diabetes. In the absence of unequivocal hyperglycemia, results should be confirmed by repeat testing. In a patient with classic symptoms of hyperglycemia or hyperglycemic crisis, random plasma glucose results greater than or equal to 200 mg/dL meet the criteria for diagnosis of diabetes. Reference: Standards of Medical Care in Diabetes 2016, [place] Diabetes Association. Diabetes Care. 2016.39(Suppl 1). Performed By: #### 2 4323-8 ####[facility] [id number] [place] [address] [place] Potassium [Moles/Vol] 3.9 mmol/L Normal 3.7-5.1 [facility] Comment on above: Order Comment: Siobhan leonardo Type: BLOOD SPECIMENOrdering Facility: [facility] Address: [address] [place] [address] Performed By: #### 2 4323-8 ####[facility] KAILEYWNCLIA [id number] [place] [address] [place] Protein [Mass/Vol] 7.7 g/dL Normal 6.3-8.0 [facility] Comment on above: Order Comment: Speci men Type: BLOOD SPECIMENOrdering Facility: [facility] Address: [address] [place] [address] Performed By: #### 2 4323-8 ####[facility] HOS[facility]ITALNCA [id number] [place] [address] [place] Sodium [Moles/Vol] 134 mmol/L Low 136-144 [facility] Comment on above: Order Comment: Speci men Type: BLOOD SPECIMENOrdering Facility: [facility] Address: [address] [place] [address] Performed By: #### 2 4323-8 ####[facility] DAYTONLIA [id number] [place] [address] [place] Urea nitrogen [Mass/Vol] 12 mg/dL Normal 7-21 [facility] Comment on above: Order Comment: Speci men Type: BLOOD SPECIMENOrdering Facility: [facility] Address: [address] [place] [address] Performed By: #### 2 4323-8 ####[facility]ITALNCLIA [id number] [place] [address] [place] Lipid 1996 panelon 5 Cholesterol [Mass/Vol] 144 mg/dL Normal <200 [facility] Comment on above: Order Comment: Speci men Type: BLOOD SPECIMENOrdering Facility: [facility] Address: [address] [place] [address] Result Comment: <200 mg/dL, Desirable 200-239 mg/dL, Borderline high >239 mg/dL, High Performed By: #### 3 016-3 ####[facility] LABCLIA [id number] [address] [address] [place]#### 82392-5 ####[facility] LABCLIA [id number] [address] [place] [address] [facility] [id number] [place] [address] Cholesterol in HDL [Mass/Vol] 49 mg/dL Normal >39 [facility] Comment on above: Order Comment: Speci men Type: BLOOD SPECIMENOrdering Facility: [facility] Address: [address] [place] [address] Result Comment: 40-5 9 mg/dL, Acceptable >59 mg/dL, High: Negative risk factor for coronary heart disease <40 mg/dL, Low: Positive risk factor for coronary heart disease Performed By: #### 3 016-3 ####[facility] LABCLIA [id number] [address], [facility] [place]#### 06173-0 ####[facility] LABCLIA [id number] [address] [facility] [id number] [place] [address] [place] Cholesterol in LDL [Mass/Vol] 83 mg/dL Normal <100 [facility] Comment on above: Order Comment: Speci men Type: BLOOD SPECIMENOrdering Facility: [facility] Address: [address] [place] [address] Result Comment: <100 mg/dL, Optimal 100-129 mg/dL, Near optimal/above optimal 130-159 mg/dL, Borderline high 160-189 mg/dL, High >189 mg/dL, Very high Secondary prevention optimal LDL Cholesterol levels are recommended to be <70 mg/dL LDL cholesterol is calculated using the Oliver-NIH equation. Performed By: #### 3 016-3 ####[facility] LABCLIA [id number] [address] [place] [address] [place]#### 34570-8 ####[facility] LABCLIA [id number] [facility] [address] [place] [address] [facility] [id number] [address] [place] Cholesterol in LDL/Cholesterol in HDL [Mass ratio] 1.69 {ratio} Normal <2.54 [facility] Comment on above: Order Comment: Speci men Type: BLOOD SPECIMENOrdering Facility: [facility] Address: [address] [place] [address] Result Comment: Refe rence: 1. National Cholesterol Education Program ATP III Guideline At-A-Glance Quick Desk Reference: National Heart, Lung, and Blood Taylor. National Institutes of Health. 2001: NIH Publication No. 01-3305. 2. An International Atherosclerosis Society position paper: global recommendations for the management of dyslipidemia: executive summary, Atherosclerosis. 2014: 232(2):410-413. Performed By: #### 3 016-3 ####[facility] LABCLIA [id number] [address] STATES [facility]#### 07781-0 ####[facility] LABCLIA [id number] [address], [address] [facility] [id number] [place] [address] [place] Cholesterol in VLDL [Mass/Vol] 9 mg/dL Normal <30 [facility] Comment on above: Order Comment: Speci men Type: BLOOD SPECIMENOrdering Facility: [facility] Address: [address] [place] [address] Performed By: #### 3 016-3 ####[facility] LABCLIA [id number] [address] [place]#### 62341-4 ####[facility] LABCLIA [id number] [address] STATES OF [facility] [id number] [address] [place] Cholesterol non HDL [Mass/Vol] 95 mg/dL Normal <130 [facility] Comment on above: Order Comment: Speci men Type: BLOOD SPECIMENOrdering Facility: [facility] Address: [address] [place] [address] Result Comment: <130 mg/dL, Optimal 130-159 mg/dL, Near optimal/above optimal 160-189 mg/dL, Borderline high 190-219 mg/dL, High >219 mg/dL, Very high Secondary prevention optimal non HDL Cholesterol levels are recommended to be <100 mg/dL Performed By: #### 3 016-3 ####[facility] LABCLIA [id number] [address] [place]#### 57377-7 ####[facility] LABCLIA [id number] [address] [facility] [id number] [place] [address] [place] Cholesterol.total/Chol esterol in HDL [Mass ratio] 2.94 {ratio} Normal <5.10 [facility] Comment on above: Order Comment: Speci men Type: BLOOD SPECIMENOrdering Facility: [facility] Address: [address] [id number] Performed By: #### 3 016-3 ####[facility] LABCLIA [id number] [place] [address] [place]#### 04261-7 ####[facility] LABCLIA [id number] [place] [id number] [place] [facility] [id number] [place] [address] [place] FASTING TIME 12 hrs Normal [facility] Comment on above: Order Comment: Speci men Type: BLOOD SPECIMENOrdering Facility: [facility] Address: [address] [place] [address] Performed By: #### 3 016-3 ####[facility] LABCLIA [id number] [place] [address] [place]#### 57320-9 ####[facility] LABCLIA [id number] [address] STATES OF [facility] [id number] [place] [address] [place] Triglyceride [Mass/Vol] 56 mg/dL Normal <150 [facility] Comment on above: Order Comment: Speci men Type: BLOOD SPECIMENOrdering Facility: [facility] Address: [address] [place] [address] Result Comment: <150 mg/dL, Normal 150-199 mg/dL, Borderline high 200-499 mg/dL, High >499 mg/dL, Very high Performed By: #### 3 016-3 ####[facility] LABCLIA [id number] [place] [address] [place]#### 91410-2 ####[facility] LABCLIA [id number] [place] [id number] [facility] [id number] [place] [address] [place] TSH SerPl-aCncon 01-07-2025 TSH Qn 1.240 m[IU]/L Normal 0.270-4.200 [facility] Comment on above: Order Comment: Speci men Type: BLOOD SPECIMENOrdering Facility: [facility] Address: [address] [place], [place] [address] Performed By: #### 3 016-3 ####[facility] LABCLIA [id number] [address] [place]#### [address]14-5 ####[facility] LABCLIA [id number] [address] STATES OF [facility] [id number] [address] [place] DBT Breast - right diagnosti c for implanton 08-12-2024 IMPRESSION: There is no mammographic evidence of malignancy. Return to annual screening mammogram is recommended. Annual mammogram will be due in 1 year. BI-RADS Category 2: Benign RISK: Due to the reported patient's history, the patient's estimated lifetime risk of developing breast cancer cannot be assessed at this time. We encourage all patients to talk with their providers about their risk assessment, further recommendations for managing breast health, and appropriate supplemental screening options if the patient has dense breast tissue. Interpreting Radiologist: Kyle Ross M.D. Electronically signed on: 08/12/2024 Collet Maker: TONY Greenrichani Date/Time: Aug 12 2024 9:19A Dictated by: KYLE ROSS MD This examination was interpreted and the report reviewed and electronically signed by: KYLE ROSS MD on Aug 12 2024 9:45AM [facility] DIVISION OF RADIOLOGY * * *Final Report* * * DATE OF EXAM: Aug 12 2024 9:35AM [facility] 0629 - NICHOLAS DIAG W IVAN RT / PROCEDURE REASON: Fibroadenoma of breast, right * * * * Physician Interpretation * * * * RESULT: [facility] [address] [address] #[id number] - NICHOLAS OBINNAG W IVAN RT HISTORY: 68 year-old patient seen for diagnostic evaluation of post-ultrasound guided reflector placement in the right breast. The patient has the following personal history of breast cancer: breast cancer in the left breast in 2014. Patient states no personal history of ovarian cancer. COMPARISON STUDIES: The present examination has been compared to prior imaging studies dated 05/14/2023 (mammogram), 05/14/2023 (ultrasound), 11/20/2023 (ultrasound), 11/20/2023 (mammogram) and 01/29/2024 (mammogram). MAMMOGRAM TECHNIQUE: The study was acquired using full field digital technology and interpreted from soft copy. Digital Breast Tomosynthesis (DBT) images were obtained and used to assist in the interpretation of this examination. MAMMOGRAM FINDINGS: The breast is heterogeneously dense, which may obscure small masses. There is a stable isodense asymmetry measuring 0.6 cm with indistinct margins and associated biopsy marker in the right breast at 6 o'clock. This is consistent with a fibroadenoma. No suspicious masses, calcifications or other abnormalities are seen in the right breast. DIVISION OF RADIOLOGY Provider, [facility] - 08/12/2024 * * *Final Report* * * DATE OF EXAM: Aug 12 2024 9:35AM [facility] 0629 - NICHOLAS DIAG W IVAN RT / PROCEDURE REASON: Fibroadenoma of breast, right * * * * Physician Interpretation * * * * RESULT: [place] [address] #[id number] - NICHOLAS DIAG W IVAN RT HISTORY: 68 year-old patient seen for diagnostic evaluation of post-ultrasound guided reflector placement in the right breast. The patient has the following personal history of breast cancer: breast cancer in the left breast in 2015. Patient states no personal history of ovarian cancer. COMPARISON STUDIES: The present examination has been compared to prior imaging studies dated 05/14/2023 (mammogram), 05/14/2023 (ultrasound), 11/20/2023 (ultrasound), 11/20/2023 (mammogram) and 01/29/2024 (mammogram). MAMMOGRAM TECHNIQUE: The study was acquired using full field digital technology and interpreted from soft copy. Digital Breast Tomosynthesis (DBT) images were obtained and used to assist in the interpretation of this examination. MAMMOGRAM FINDINGS: The breast is heterogeneously dense, which may obscure small masses. There is a stable isodense asymmetry measuring 0.6 cm with indistinct margins and associated biopsy marker in the right breast at 6 o'clock. This is consistent with a fibroadenoma. No suspicious masses, calcifications or other abnormalities are seen in the right breast. IMPRESSION IMPRESSION: There is no mammographic evidence of malignancy. Return to annual screening mammogram is recommended. Annual mammogram will be due in 1 year. BI-RADS Category 2: Benign RISK: Due to the reported patient's history, the patient's estimated lifetime risk of developing breast cancer cannot be assessed at this time. We encourage all patients to talk with their providers about their risk assessment, further recommendations for managing breast health, and appropriate supplemental screening options if the patient has dense breast tissue. Interpreting Radiologist: Kyle Ross M.D. Electronically signed on: 08/12/2024 Collet Maker: TONY Transcribe Date/Time: Aug 12 2024 9:19A Dictated by: KYLE ROSS MD This examination was interpreted and the report reviewed and electronically signed by: KYLE ROSS MD on Aug 12 2024 9:45AM EST [facility] Radiology Study observation (narrative) [facility] DBT Breast - right diagnosti c for implantOrdered By: Ccf Provider on 08-12-2024 [facility] NICHOLAS DIAG W IVAN RTon 025 NICHOLAS DIAG W IVAN RT * * *Final Report* * * DATE OF EXAM: Aug 12 2024 9:35AM W 0629 - NICHOLAS DIAG W IVAN RT / PROCEDURE REASON: Fibroadenoma of breast, right * * * * Physician Interpretation * * * * RESULT: [facility] [address] [place] [address] #[id number] - NICHOLAS DIAG W IVAN RT HISTORY: 68 year-old patient seen for diagnostic evaluation of post-ultrasound guided reflector placement in the right breast. The patient has the following personal history of breast cancer: breast cancer in the left breast in 2015. Patient states no personal history of ovarian cancer. COMPARISON STUDIES: The present examination has been compared to prior imaging studies dated 05/14/2023 (mammogram), 05/14/2023 (ultrasound), 11/20/2023 (ultrasound), 11/20/2023 (mammogram) and 01/29/2024 (mammogram). MAMMOGRAM TECHNIQUE: The study was acquired using full field digital technology and interpreted from soft copy. Digital Breast Tomosynthesis (DBT) images were obtained and used to assist in the interpretation of this examination. MAMMOGRAM FINDINGS: The breast is heterogeneously dense, which may obscure small masses. There is a stable isodense asymmetry measuring 0.6 cm with indistinct margins and associated biopsy marker in the right breast at 6 o'clock. This is consistent with a fibroadenoma. No suspicious masses, calcifications or other abnormalities are seen in the right breast. IMPRESSION: There is no mammographic evidence of malignancy. Return to annual screening mammogram is recommended. Annual mammogram will be due in 1 year. BI-RADS Category 2: Benign RISK: Due to the reported patient's history, the patient's estimated lifetime risk of developing breast cancer cannot be assessed at this time. We encourage all patients to talk with their providers about their risk assessment, further recommendations for managing breast health, and appropriate supplemental screening options if the patient has dense breast tissue. Interpreting Radiologist: Kyle Ross M.D. Electronically signed on: 08/12/2024 Collet Maker: TONY Greenrichani Date/Time: Aug 12 2024 9:19A Dictated by: KYLE ROSS MD This examination was interpreted and the report reviewed and electronically signed by: KYLE ROSS MD on Aug 12 2024 9:45AM EST [id number] Normal [facility]20[facility] KENDY ALBA ([id number]) 1955 F Date Time Provider Department 02/17/24 JUANITA EMMANUEL FAMPST During your visit today, we recorded the following information about you: Emily Zimmer 02/17/2024 8:48 AM Signed Kendy is calling Juanita Emmanuel MD today with concern regarding patient tested positive Saturday02/15/2024 for Covid, patient daughter is a nurse and tested patient, patient has a picture of the positive test. Patient does not know how to do the video visit and not sure she understands. Patient has no appetite, coughing sneezing and sinus congestion. Throat was scratchy Patient has been identified by name and birthdate. Duration of symptoms: 3 days Person calling: self Call patient at: at home [phone] (home) [phone] (cell) Was an appointment scheduled: No Closing statement: Symptom Call: Thank you for calling [facility], your call is very important. A nurse will call in approximately 2-4 hours during business hours. If this is an emergency, please contact 911. Emily Tello [facility] [place] Ahmadi [place] 02/17/2024 10:37 AM Signed Call to pt and discussed VV. Did give instructions, pt will attempt this and upload her + Covid test. Pt scheduled with PCP today at 2:20 pm. Mar Ahmadi MA Allergies As of Date: 02/17/2024 Noted Allergy Reaction AMOXICILLIN 03/05/2005 4 - Hives KEFLEX (CEPHALEXIN) 03/05/2005 4 - Hives MINOCYCLINE 05/25/2014 4 - Hives SULFA (SULFONAMIDE ANTIBIOTICS) 03/05/2005 4 - Hives Date Reviewed: 02/10/2024 Reviewed by: Galina Roche RN - Fully Assessed Reason for Visit: Covid Positive [4049] Cmt: Per home test, patient is positive for covid Prescriptions as of 02/17/2024 - montelukast (SINGULAIR) 10 mg tablet Take 1 tablet by mouth daily at bedtime. - albuterol HFA (PROVENTIL HFA, VENTOLIN HFA) 90 mcg/actuation inhaler Inhale 2 Puffs as instructed every 4 hours as needed for wheezing/shortness of breath. - budesonide (PULMICORT FLEXHALER) 180 mcg/actuation aepb Inhale 1 Puff as instructed two times a day. One puff twice daily. - losartan (COZAAR) 25 mg tablet Take 1 tablet by mouth once daily. - levothyroxine (LEVOXYL) 112 mcg tablet Take 1 tablet by mouth once daily. Take on empty stomach. For thyroid. - hydroCHLOROthiazide 25 mg tablet Take 1 tablet by mouth daily with breakfast. Problem List As Of Date 02/17/2024 Noted Resolved Hypothyroidism [E03.9] Asthma [J45.909] FAMILY HX BREAST MALIG [Z80.3] 10/02/2006 Essential Hypertension, Benign [I10] 12/12/2009 Psoriasis [L40.9] 12/19/2011 Breast CA (HCC) [C50.919] 05/25/2014 Acquired hypothyroidism [E03.9] 04/04/2015 Invasive ductal carcinoma of left breast in fem*03/25/2017 Obesity, Class III, BMI 40-49.9 (morbid obesity*09/18/2017 Encounter Status:Closed by MAR AHMADI on 02/17/24 [facility] CNOVon 02-10-2024 CNOV Office Visit (SWS ) KENDY ALBA ([id number]) 1955 F Date Time Provider Department 02/10/24 1:00 PM EZE LINN During your visit today, we recorded the following information about you: Eze Linn MD 02/10/2024 1:07 PM Signed Subjective: Patient is status post an ultrasound-guided right needle core biopsy on 01/29/2024. This biopsy result came back as a fibroadenoma. Patient has no complaints at this time. Objective:Last menstrual period 06/25/2005. Biopsy site is clean healing up well minimal bruising is identified. No signs of cellulitis. Assessment: Fibroadenoma right breast Plan: Patient will need to have a 6-month follow-up from the date of her last mammogram. This will be done on the right side. The order is in place. She can follow-up with me on an as-needed basis. Allergies As of Date: 02/10/2024 Noted Allergy Reaction AMOXICILLIN 03/05/2005 4 - Hives KEFLEX (CEPHALEXIN) 03/05/2005 4 - Hives MINOCYCLINE 05/25/2014 4 - Hives SULFA (SULFONAMIDE ANTIBIOTICS) 03/05/2005 4 - Hives Date Reviewed: 02/10/2024 Reviewed by: Galina Roche RN - Fully Assessed Reason for Visit: Follow Up [171] Cmt: 01/28 breast bx Primary Visit Diagnosis:Fibroadenoma of breast, right [D24.1] Order(s):[facility] RIGHT [[id number]] Order #: [id number] FUTURE Prescriptions as of 02/10/2024 - L.acidophilus-B.animali s-B.longum (FLORAJEN DIGESTION) 15 billion cell capsule Take 1 capsule by mouth once daily. - montelukast (SINGULAIR) 10 mg tablet Take 1 tablet by mouth daily at bedtime. - albuterol HFA (PROVENTIL HFA, VENTOLIN HFA) 90 mcg/actuation inhaler Inhale 2 Puffs as instructed every 4 hours as needed for wheezing/shortness of breath. - budesonide (PULMICORT FLEXHALER) 180 mcg/actuation aepb Inhale 1 Puff as instructed two times a day. One puff twice daily. - losartan (COZAAR) 25 mg tablet Take 1 tablet by mouth once daily. - levothyroxine (LEVOXYL) 112 mcg tablet Take 1 tablet by mouth once daily. Take on empty stomach. For thyroid. - hydroCHLOROthiazide 25 mg tablet Take 1 tablet by mouth daily with breakfast. Problem List As Of Date 02/10/2024 Noted Resolved Hypothyroidism [E03.9] Asthma [J45.909] FAMILY HX BREAST MALIG [Z80.3] 10/02/2006 Essential Hypertension, Benign [I10] 12/12/2009 Psoriasis [L40.9] 12/19/2011 Breast CA (HCC) [C50.919] 05/25/2014 Acquired hypothyroidism [E03.9] 04/04/2015 Invasive ductal carcinoma of left breast in fem*03/25/2017 Obesity, Class III, BMI 40-49.9 (morbid obesity*09/18/2017 Encounter Status:Closed by ZEE LINN on 02/10/24 Normal [facility] DBT Breast - right diagnosti c for implanton 01-29-2024 * * *Final Report* * * DATE OF EXAM: Jan 29 2024 11:08AM PATRICIA 0629 - [facility] DIAG W IVAN RT / PROCEDURE REASON: R92.8-Abnormal mammogram * * * * Physician Interpretation * * * * #[id number] - [facility] US BIOPSY BREAST RT #[id number] - [facility] DIAG W IVAN RT ULTRASOUND GUIDED BIOPSY RIGHT BREAST WITH MARKING DEVICE INSERTED AND POST DIGITAL MAMMOGRAPHIC AND ULTRASOUND IMAGIN01/29/2024 HISTORY: R92.8-Abnormal Mammogram R92.8-Abnormal Mammogram. PATIENT CONSENT: A time out was performed immediately prior to procedure start with the radiology team, correctly identifying the patient name, date of , procedure, anatomy (including marking of site and side), patient position, relevant diagnostic and radiology test results, safety precautions, and procedure-specific equipment needs. The procedure for right core biopsy and clip placement was explained to the patient including the risks, benefits and alternatives. Medications and allergies were also reviewed. The risks, including but not limited to infection and bleeding, were reviewed by the performing physician and the patient agreed to undergo the procedure. Dr. Doran and 2 technologists were present throughout the entire procedure. Audible Time Out Time: 10:37 Procedure Start Time: 10:40 Procedure Stop Time: 10:45 . Correlation is made to exams dated: 11/20/2023 ultrasound, 11/20/2023 mammogram, 05/14/2023 ultrasound, 05/14/2023 mammogram, 03/29/2022 mammogram, and 03/27/2021 mammogram - [facility]. An ultrasound guided biopsy using real-time ultrasound was performed for the concerning lobulated mass located in the right breast at 6 o'clock anterior depth. This was described on the previous mammography and ultrasound reports. The skin was prepped in the usual manner. Local anesthetic was administered to the access site. A skin baltazar was made in the breast. The abnormality was approached from the lateral aspect. A 14 gauge biopsy needle was placed adjacent to the abnormality under ultrasound guidance. Once the needle was documented to be in the correct location, three specimens were obtained using marquee needle. A Coil-shaped marker clip was inserted into the biopsy cavity. A sterile dressing was applied to the access site. Post procedure digital mammographic and ultrasound imaging demonstrates the location device at the targeted area. The specimens were sent to the laboratory for pathological analysis. [facility] Provider, Braden Canales - 01/29/2024 * * *Final Report* * * DATE OF EXAM: Jan 29 2024 11:08AM MDW 0629 - [facility] DIAG W IVAN RT / PROCEDURE REASON: R92.8-Abnormal mammogram * * * * Physician Interpretation * * * * #[id number] - [facility] US BIOPSY BREAST RT #[id number] - [facility] DIAG W IVAN RT ULTRASOUND GUIDED BIOPSY RIGHT BREAST WITH MARKING DEVICE INSERTED AND POST DIGITAL MAMMOGRAPHIC AND ULTRASOUND IMAGIN01/29/2024 HISTORY: R92.8-Abnormal Mammogram R92.8-Abnormal Mammogram. PATIENT CONSENT: A time out was performed immediately prior to procedure start with the radiology team, correctly identifying the patient name, date of , procedure, anatomy (including marking of site and side), patient position, relevant diagnostic and radiology test results, safety precautions, and procedure-specific equipment needs. The procedure for right core biopsy and clip placement was explained to the patient including the risks, benefits and alternatives. Medications and allergies were also reviewed. The risks, including but not limited to infection and bleeding, were reviewed by the performing physician and the patient agreed to undergo the procedure. Dr. Doran and 2 technologists were present throughout the entire procedure. Audible Time Out Time: 10:37 Procedure Start Time: 10:40 Procedure Stop Time: 10:45 . Correlation is made to exams dated: 11/20/2023 ultrasound, 11/20/2023 mammogram, 05/14/2023 ultrasound, 05/14/2023 mammogram, 03/29/2022 mammogram, and 03/27/2021 mammogram - [facility]. An ultrasound guided biopsy using real-time ultrasound was performed for the concerning lobulated mass located in the right breast at 6 o'clock anterior depth. This was described on the previous mammography and ultrasound reports. The skin was prepped in the usual manner. Local anesthetic was administered to the access site. A skin baltazar was made in the breast. The abnormality was approached from the lateral aspect. A 14 gauge biopsy needle was placed adjacent to the abnormality under ultrasound guidance. Once the needle was documented to be in the correct location, three specimens were obtained using marquee needle. A Coil-shaped marker clip was inserted into the biopsy cavity. A sterile dressing was applied to the access site. Post procedure digital mammographic and ultrasound imaging demonstrates the location device at the targeted area. The specimens were sent to the laboratory for pathological analysis. IMPRESSION IMPRESSION: ULTRASOUND GUIDED BIOPSY There were no immediate complications and the patient tolerated procedure well. Ultrasound guided biopsy of the mass in the right breast at 6 o'clock anterior depth with placement of a clip was successful with no apparent post procedure complications. Waiting for pathology results. A final report will be issued when these become available. Edu PEREIRA, [facility]/jaron:01/29/2024 11:19:33 Sales Support Administrator(s): Zenia Carmen RT(R)(M), [facility]; Jyoti Myers, [facility] Multiple national specialty organizations have released breast cancer screening guidelines for women at average risk for developing breast cancer - guidelines that are based on both evidence and opinion, yet differ on when to start and how often to screen for breast cancer. With representation from Breast Imaging, Internal Medicine, Women's Health, Family Medicine, and Medical/Surgical Oncology, the [facility] has carefully reviewed the data and reached the following consensus: 1) All women should engage in shared decision-making with their providers to decide when to start and how often to screen; 2) All women should have the opportunity to start screening mammography at age 40; 3) For women ages 45-55, we recommend annual screening mammograms; 4) For women ages 55 and over, we support both the transition from an annual to a biennial interval if this aligns more with patient's values and preferences, or continuation with annual screening; 5) All women should discuss with their providers when to stop screening mammograms. Collet Maker: Jaron Transcribe Date/Time: Jan 29 2024 10:22A Dictated by : EDU DORAN MD This examination was interpreted and the report reviewed and electronically signed by: EUD DORAN MD on Jan 29 2024 11:19AM [facility] Radiology Study observation (narrative) [facility] JASON W IVAN RTon 024 NICHOLAS GOMEZ W IVAN RT * * *Final Report* * * * * * SEE BOTTOM OF REPORT FOR ADDENDED TEXT * * * DATE OF EXAM: Jan 29 2024 11:08AM PATRICIA 0629 - [facility] JASON W IVAN RT / PROCEDURE REASON: R92.8-Abnormal mammogram * * * * Physician Interpretation * * * * FINAL REPORT #[id number] - [facility] US BIOPSY BREAST RT #[id number] - [facility] DIAG W IVAN RT ULTRASOUND GUIDED BIOPSY RIGHT BREAST WITH MARKING DEVICE INSERTED AND POST DIGITAL MAMMOGRAPHIC AND ULTRASOUND IMAGIN01/29/2024 HISTORY: R92.8-Abnormal Mammogram R92.8-Abnormal Mammogram. PATIENT CONSENT: A time out was performed immediately prior to procedure start with the radiology team, correctly identifying the patient name, date of , procedure, anatomy (including marking of site and side), patient position, relevant diagnostic and radiology test results, safety precautions, and procedure-specific equipment needs. The procedure for right core biopsy and clip placement was explained to the patient including the risks, benefits and alternatives. Medications and allergies were also reviewed. The risks, including but not limited to infection and bleeding, were reviewed by the performing physician and the patient agreed to undergo the procedure. Dr. Doran and 2 technologists were present throughout the entire procedure. Audible Time Out Time: 10:37 Procedure Start Time: 10:40 Procedure Stop Time: 10:45 . Correlation is made to exams dated: 11/20/2023 ultrasound, 11/20/2023 mammogram, 05/14/2023 ultrasound, 05/14/2023 mammogram, 03/29/2022 mammogram, and 03/27/2021 mammogram - [facility]. An ultrasound guided biopsy using real-time ultrasound was performed for the concerning lobulated mass located in the right breast at 6 o'clock anterior depth. This was described on the previous mammography and ultrasound reports. The skin was prepped in the usual manner. Local anesthetic was administered to the access site. A skin baltazar was made in the breast. The abnormality was approached from the lateral aspect. A 14 gauge biopsy needle was placed adjacent to the abnormality under ultrasound guidance. Once the needle was documented to be in the correct location, three specimens were obtained using marquee needle. A Coil-shaped marker clip was inserted into the biopsy cavity. A sterile dressing was applied to the access site. Post procedure digital mammographic and ultrasound imaging demonstrates the location device at the targeted area. The specimens were sent to the laboratory for pathological analysis. IMPRESSION: ULTRASOUND GUIDED BIOPSY BENIGN There were no immediate complications and the patient tolerated procedure well. Ultrasound guided biopsy of the mass in the right breast at 6 o'clock anterior depth with placement of a clip was successful with no apparent post procedure complications. Pathology indicates benign fibroadenoma (FA). Pathology results are concordant with imaging findings. SUMMARY: THE [facility]ENTER RADIOLOGY NURSES WILL GIVE THE PATIENT THE PATHOLOGY RESULTS BELOW. RETURN TO ANNUAL SCREENING MAMMOGRAMS. SURGICAL PATHOLOGY: [id number] Order: [id number] Collected 01/29/2024 10:42 AM Status: Final result Visible to patient: No (scheduled for 02/04/2024 12:20 PM) Dx: Abnormal mammogram 0 Result Notes Component FINAL DIAGNOSIS A. Right breast, 6:00 3 cm from nipple, ultrasound guided core needle biopsy with coil clip placement: -- Fibroadenoma. . Edu PEREIRA, [facility] Anamaria Celaya M.D. ,/jaron:01/31/2024 09:06:10 Sales Support Administrator(s): RT Hema(R)(M), [facility]; Jyoti Myers, [facility] Multiple national specialty organizations have released breast cancer screening guidelines for women at average risk for developing breast cancer - guidelines that are based on both evidence and opinion, yet differ on when to start and how often to screen for breast cancer. With representation from Breast Imaging, Internal Medicine, Women's Health, Family Medicine, and Medical/Surgical Oncology, the [facility] has carefully reviewed the data and reached the following consensus: 1) All women should engage in shared decision-making with their providers to decide when to start and how often to screen; 2) All women should have the opportunity to start screening mammography at age 40; 3) For women ages 45-55, we recommend annual screening mammograms; 4) For women ages 55 and over, we support both the transition from an annual to a biennial interval if this aligns more with patient's values and preferences, or continuation with annual screening; 5) All women should discuss with their providers when to stop screening mammograms. Collet Maker: Jaron Transcribe Date/Time: Jan 29 2024 10:22A Dictated by : ANAMARIA CELAYA MD This examination was interpreted and the report reviewed and electronically si (more content not included)... Normal [facility] US BIOPSY BREAST RTon [facility] US BIOPSY BREAST RT * * *Final Report* * * * * * SEE BOTTOM OF REPORT FOR ADDENDED TEXT * * * DATE OF EXAM: Jan 29 2024 10:54AM RIVER 0598 - [facility] US BIOPSY BREAST RT / PROCEDURE REASON: R92.8-Abnormal mammogram * * * * Physician Interpretation * * * * FINAL REPORT #[id number] - [facility] US BIOPSY BREAST RT #[id number] - [facility] DIAG W IVAN RT ULTRASOUND GUIDED BIOPSY RIGHT BREAST WITH MARKING DEVICE INSERTED AND POST DIGITAL MAMMOGRAPHIC AND ULTRASOUND IMAGIN01/29/2024 HISTORY: R92.8-Abnormal Mammogram R92.8-Abnormal Mammogram. PATIENT CONSENT: A time out was performed immediately prior to procedure start with the radiology team, correctly identifying the patient name, date of , procedure, anatomy (including marking of site and side), patient position, relevant diagnostic and radiology test results, safety precautions, and procedure-specific equipment needs. The procedure for right core biopsy and clip placement was explained to the patient including the risks, benefits and alternatives. Medications and allergies were also reviewed. The risks, including but not limited to infection and bleeding, were reviewed by the performing physician and the patient agreed to undergo the procedure. Dr. Doran and 2 technologists were present throughout the entire procedure. Audible Time Out Time: 10:37 Procedure Start Time: 10:40 Procedure Stop Time: 10:45 . Correlation is made to exams dated: 11/20/2023 ultrasound, 11/20/2023 mammogram, 05/14/2023 ultrasound, 05/14/2023 mammogram, 03/29/2022 mammogram, and 03/27/2021 mammogram - [facility]. An ultrasound guided biopsy using real-time ultrasound was performed for the concerning lobulated mass located in the right breast at 6 o'clock anterior depth. This was described on the previous mammography and ultrasound reports. The skin was prepped in the usual manner. Local anesthetic was administered to the access site. A skin baltazar was made in the breast. The abnormality was approached from the lateral aspect. A 14 gauge biopsy needle was placed adjacent to the abnormality under ultrasound guidance. Once the needle was documented to be in the correct location, three specimens were obtained using marquee needle. A Coil-shaped marker clip was inserted into the biopsy cavity. A sterile dressing was applied to the access site. Post procedure digital mammographic and ultrasound imaging demonstrates the location device at the targeted area. The specimens were sent to the laboratory for pathological analysis. IMPRESSION: ULTRASOUND GUIDED BIOPSY BENIGN There were no immediate complications and the patient tolerated procedure well. Ultrasound guided biopsy of the mass in the right breast at 6 o'clock anterior depth with placement of a clip was successful with no apparent post procedure complications. Pathology indicates benign fibroadenoma (FA). Pathology results are concordant with imaging findings. SUMMARY: THE [facility] RADIOLOGY NURSES WILL GIVE THE PATIENT THE PATHOLOGY RESULTS BELOW. RETURN TO ANNUAL SCREENING MAMMOGRAMS. SURGICAL PATHOLOGY: [id number] Order: [id number] Collected 01/29/2024 10:42 AM Status: Final result Visible to patient: No (scheduled for 02/04/2024 12:20 PM) Dx: Abnormal mammogram 0 Result Notes Component FINAL DIAGNOSIS A. Right breast, 6:00 3 cm from nipple, ultrasound guided core needle biopsy with coil clip placement: -- Fibroadenoma. . Edu Doran M.D. FACR, [facility] Anamaria Celaya M.D. ,isamar/jaron:01/31/2024 09:06:10 Sales Support Administrator(s): RT Hema(R)(M), [facility]; Jyoti Myers, [facility] Multiple national specialty organizations have released breast cancer screening guidelines for women at average risk for developing breast cancer - guidelines that are based on both evidence and opinion, yet differ on when to start and how often to screen for breast cancer. With representation from Breast Imaging, Internal Medicine, Women's Health, Family Medicine, and Medical/Surgical Oncology, the [facility] has carefully reviewed the data and reached the following consensus: 1) All women should engage in shared decision-making with their providers to decide when to start and how often to screen; 2) All women should have the opportunity to start screening mammography at age 40; 3) For women ages 45-55, we recommend annual screening mammograms; 4) For women ages 55 and over, we support both the transition from an annual to a biennial interval if this aligns more with patient's values and preferences, or continuation with annual screening; 5) All women should discuss with their providers when to stop screening mammograms. Collet Maker: Jaron Transcribe Date/Time: Jan 29 2024 10:22A Dictated by : ANAMARIA CELAYA MD This examination was interpreted and the report reviewed and electronical (more content not included)... [facility] No Panel InformationOrdered By: [facility] Provider on 01-29-2024 [facility] SURGICAL PATHOLOGYon 024 CASE REPORT [facility] Comment on above: Order Comment: Siobhan leonardo Type: TISSUE SPECIMEN Ordering Facility: [facility] Address: [address] [place] [address] Result Comment: Surg [facility] Pathology Report Case: [id number] Authorizing Provider: Edu Doran MD Collected: 01/29/2024 10:42 AM Ordering Location: Mammography Received: 01/29/2024 12:33 PM Pathologist: Della Gaffney MD Specimen: Breast, Right, Core Biopsy, 6:00 3cmfn; coil clip Performed By: #### S #### [facility] [place] [id number] [address] [place], [place] [address]K [address] FINAL DIAGNOSIS [facility] Comment on above: Order Comment: Siobhan leonardo Type: TISSUE SPECIMEN Ordering Facility: [facility] Address: [address] [place] [address] Result Comment: A. R ight breast, 6:00 3 cm from nipple, ultrasound guided core needle biopsy with coil clip placement: -- Fibroadenoma. Performed By: #### S #### [facility] CLIA [id number] [address] [place] [address] [place] FINAL PERFORMING LAB Normal [facility] Comment on above: Order Comment: Speci men Type: TISSUE SPECIMEN Ordering Facility: [facility] Address: [address] [place] [address] Result Comment: Diag nostic interpretation performed at [facility], [address] [place] [address] CLIA# [id number] Market Research Coordinator: Shane Nolasco M.D. Performed By: #### S #### [facility] CLIA [id number] [address] [place] [address] [place] GROSS DESCRIPTION Normal [facility] Comment on above: Order Comment: Speci men Type: TISSUE SPECIMEN Ordering Facility: [facility] Address: [address] [place] [address] Result Comment: A. B reast, Right, Core Biopsy Received in formalin labeled as ``right breast? are multiple segments of cylindrical tissue aggregating to 2.0 x 0.6 x 0.1 cm, yellow-white and of a soft and rubbery consistency. The specimen was removed from the patient at 10: 42 on 01/29/2024. On the same day, the specimen was placed in formalin at 10: 42. Totally submitted in formalin in one cassette. Gross examination performed at [facility], [address] [place] [address] January 29, 2024 4:15 PM Performed By: #### S #### [facility] CLIA [id number] [address] [place] [address] [place] US Guidance for biopsy of Br east - righton 01-29-2024 * * *Final Report* * * DATE OF EXAM: Jan 29 2024 10:54AM [facility] 0598 - [facility] US BIOPSY BREAST RT / PROCEDURE REASON: R92.8-Abnormal mammogram * * * * Physician Interpretation * * * * #[id number] - [facility] US BIOPSY BREAST RT #[id number] - [facility] DIAG W IVAN RT ULTRASOUND GUIDED BIOPSY RIGHT BREAST WITH MARKING DEVICE INSERTED AND POST DIGITAL MAMMOGRAPHIC AND ULTRASOUND IMAGIN01/29/2024 HISTORY: R92.8-Abnormal Mammogram R92.8-Abnormal Mammogram. PATIENT CONSENT: A time out was performed immediately prior to procedure start with the radiology team, correctly identifying the patient name, date of , procedure, anatomy (including marking of site and side), patient position, relevant diagnostic and radiology test results, safety precautions, and procedure-specific equipment needs. The procedure for right core biopsy and clip placement was explained to the patient including the risks, benefits and alternatives. Medications and allergies were also reviewed. The risks, including but not limited to infection and bleeding, were reviewed by the performing physician and the patient agreed to undergo the procedure. Dr. Doran and 2 technologists were present throughout the entire procedure. Audible Time Out Time: 10:37 Procedure Start Time: 10:40 Procedure Stop Time: 10:45 . Correlation is made to exams dated: 11/20/2023 ultrasound, 11/20/2023 mammogram, 05/14/2023 ultrasound, 05/14/2023 mammogram, 03/29/2022 mammogram, and 03/27/2021 mammogram - [facility]. An ultrasound guided biopsy using real-time ultrasound was performed for the concerning lobulated mass located in the right breast at 6 o'clock anterior depth. This was described on the previous mammography and ultrasound reports. The skin was prepped in the usual manner. Local anesthetic was administered to the access site. A skin baltazar was made in the breast. The abnormality was approached from the lateral aspect. A 14 gauge biopsy needle was placed adjacent to the abnormality under ultrasound guidance. Once the needle was documented to be in the correct location, three specimens were obtained using marquee needle. A Coil-shaped marker clip was inserted into the biopsy cavity. A sterile dressing was applied to the access site. Post procedure digital mammographic and ultrasound imaging demonstrates the location device at the targeted area. The specimens were sent to the laboratory for pathological analysis. [facility] Provider, Braden Vernon Parker - 01/29/2024 * * *Final Report* * * DATE OF EXAM: Jan 29 2024 10:54AM [facility] 0598 - [facility] BIOPSY BREAST RT / PROCEDURE REASON: R92.8-Abnormal mammogram * * * * Physician Interpretation * * * * #[id number] - [facility] US BIOPSY BREAST RT #[id number] - [facility] OBINNAG W IVAN RT ULTRASOUND GUIDED BIOPSY RIGHT BREAST WITH MARKING DEVICE INSERTED AND POST DIGITAL MAMMOGRAPHIC AND ULTRASOUND IMAGIN01/29/2024 HISTORY: R92.8-Abnormal Mammogram R92.8-Abnormal Mammogram. PATIENT CONSENT: A time out was performed immediately prior to procedure start with the radiology team, correctly identifying the patient name, date of , procedure, anatomy (including marking of site and side), patient position, relevant diagnostic and radiology test results, safety precautions, and procedure-specific equipment needs. The procedure for right core biopsy and clip placement was explained to the patient including the risks, benefits and alternatives. Medications and allergies were also reviewed. The risks, including but not limited to infection and bleeding, were reviewed by the performing physician and the patient agreed to undergo the procedure. Dr. Doran and 2 technologists were present throughout the entire procedure. Audible Time Out Time: 10:37 Procedure Start Time: 10:40 Procedure Stop Time: 10:45 . Correlation is made to exams dated: 11/20/2023 ultrasound, 11/20/2023 mammogram, 05/14/2023 ultrasound, 05/14/2023 mammogram, 03/29/2022 mammogram, and 03/27/2021 mammogram - [facility]. An ultrasound guided biopsy using real-time ultrasound was performed for the concerning lobulated mass located in the right breast at 6 o'clock anterior depth. This was described on the previous mammography and ultrasound reports. The skin was prepped in the usual manner. Local anesthetic was administered to the access site. A skin baltazar was made in the breast. The abnormality was approached from the lateral aspect. A 14 gauge biopsy needle was placed adjacent to the abnormality under ultrasound guidance. Once the needle was documented to be in the correct location, three specimens were obtained using marquee needle. A Coil-shaped marker clip was inserted into the biopsy cavity. A sterile dressing was applied to the access site. Post procedure digital mammographic and ultrasound imaging demonstrates the location device at the targeted area. The specimens were sent to the laboratory for pathological analysis. IMPRESSION IMPRESSION: ULTRASOUND GUIDED BIOPSY There were no immediate complications and the patient tolerated procedure well. Ultrasound guided biopsy of the mass in the right breast at 6 o'clock anterior depth with placement of a clip was successful with no apparent post procedure complications. Waiting for pathology results. A final report will be issued when these become available. Edu Doran M.D. [facility], [facility]/jaron:01/29/2024 11:19:33 Sales Support Administrator(s): Zenia Carmen RT(R)(M), [facility]; Jyoti Myers, [facility] Multiple national specialty organizations have released breast cancer screening guidelines for women at average risk for developing breast cancer - guidelines that are based on both evidence and opinion, yet differ on when to start and how often to screen for breast cancer. With representation from Breast Imaging, Internal Medicine, Women's Health, Family Medicine, and Medical/Surgical Oncology, the [facility] has carefully reviewed the data and reached the following consensus: 1) All women should engage in shared decision-making with their providers to decide when to start and how often to screen; 2) All women should have the opportunity to start screening mammography at age 40; 3) For women ages 45-55, we recommend annual screening mammograms; 4) For women ages 55 and over, we support both the transition from an annual to a biennial interval if this aligns more with patient's values and preferences, or continuation with annual screening; 5) All women should discuss with their providers when to stop screening mammograms. Collet Maker: Jaron Transcribe Date/Time: Jan 29 2024 10:22A Dictated by : EDU DORAN MD This examination was interpreted and the report reviewed and electronically signed by: EDU DORAN MD on Jan 29 2024 11:19AM EST [facility] Radiology Study observation (narrative) [facility] US Lower extremity vein - ri [facility] 01-15-2024 IMPRESSION: Negative study for proximal DVT in the right lower extremity. Negative study for calf DVT in the right lower extremity. Negative study for superficial thrombophlebitis in the imaged segments of the right lower extremity. Collet Maker: MASHA Transcribe Date/Time: Jan 15 2024 5:12P Dictated by : SIRISHA HAZEL MD This examination was interpreted and the report reviewed and electronically signed by: SIRISHA HAZEL MD on Jan 15 2024 5:13PM EST [facility] * * *Final Report* * * DATE OF EXAM: Jan 15 2024 4:27PM LDU 1007 - US DVT LOWER RT / PROCEDURE REASON: multiple diagnoses * * * * Physician Interpretation * * * * EXAMINATION: RIGHT LOWER EXTREMITY DEEP VENOUS ULTRASOUND WITH DOPPLER IMAGING CLINICAL HISTORY: Varicose veins TECHNIQUE: Grayscale with compression maneuvers, color Doppler and spectral Doppler imaging of the right proximal deep veins was performed. Grayscale with compression maneuvers of the peroneal and posterior tibial veins was performed. The right great and small saphenous veins were evaluated at their insertion to the deep system. The contralateral common femoral vein was imaged for comparison. Images were obtained and stored in a permanent archive. MQ: USLER_1 COMPARISON: None RESULT: RIGHT LOWER EXTREMITY PROXIMAL DEEP VEINS Distal External Iliac, Common Femoral and proximal Profunda Veins: Compression: Normal Doppler: Normal, spontaneous respirophasic flow. Normal response to augmentation. Femoral vein: Compression: Normal Doppler: Normal, spontaneous flow. Normal response to augmentation. Popliteal vein: Compression: Normal Doppler: Normal, spontaneous flow. Normal response to augmentation. CALF DEEP VEINS Peroneal veins: Normal compression. Posterior tibial veins: Normal compression. Gastrocnemius and Soleal veins: Not imaged. SUPERFICIAL VEINS Great saphenous: Patent and compressible at insertion into common femoral vein; not otherwise assessed. Small Saphenous: Patent and compressible in the proximal calf, not otherwise assessed. LEFT LOWER EXTREMITY (FOR COMPARISON) Common Femoral Vein: Compression: Normal Doppler: Normal, spontaneous respirophasic flow. Normal response to augmentation. [facility] Provider, [facility] - 01/15/2024 * * *Final Report* * * DATE OF EXAM: Jan 15 2024 4:27PM [facility] 1007 - US DVT LOWER RT / PROCEDURE REASON: multiple diagnoses * * * * Physician Interpretation * * * * EXAMINATION: RIGHT LOWER EXTREMITY DEEP VENOUS ULTRASOUND WITH DOPPLER IMAGING CLINICAL HISTORY: Varicose veins TECHNIQUE: Grayscale with compression maneuvers, color Doppler and spectral Doppler imaging of the right proximal deep veins was performed. Grayscale with compression maneuvers of the peroneal and posterior tibial veins was performed. The right great and small saphenous veins were evaluated at their insertion to the deep system. The contralateral common femoral vein was imaged for comparison. Images were obtained and stored in a permanent archive. MQ: USLER_1 COMPARISON: None RESULT: RIGHT LOWER EXTREMITY PROXIMAL DEEP VEINS Distal External Iliac, Common Femoral and proximal Profunda Veins: Compression: Normal Doppler: Normal, spontaneous respirophasic flow. Normal response to augmentation. Femoral vein: Compression: Normal Doppler: Normal, spontaneous flow. Normal response to augmentation. Popliteal vein: Compression: Normal Doppler: Normal, spontaneous flow. Normal response to augmentation. CALF DEEP VEINS Peroneal veins: Normal compression. Posterior tibial veins: Normal compression. Gastrocnemius and Soleal veins: Not imaged. SUPERFICIAL VEINS Great saphenous: Patent and compressible at insertion into common femoral vein; not otherwise assessed. Small Saphenous: Patent and compressible in the proximal calf, not otherwise assessed. LEFT LOWER EXTREMITY (FOR COMPARISON) Common Femoral Vein: Compression: Normal Doppler: Normal, spontaneous respirophasic flow. Normal response to augmentation. IMPRESSION IMPRESSION: Negative study for proximal DVT in the right lower extremity. Negative study for calf DVT in the right lower extremity. Negative study for superficial thrombophlebitis in the imaged segments of the right lower extremity. Collet Maker: MASHA Transcribe Date/Time: Jan 15 2024 5:12P Dictated by : SIRISHA HAZEL MD This examination was interpreted and the report reviewed and electronically signed by: SIRISHA HAZEL MD on Jan 15 2024 5:13PM EST [facility] Radiology Study observation (narrative) [facility] US Lower extremity vein - ri ghtOrdered By: [facility] Provider on 01-15-2024 [facility] DBT Breast - right diagnosti c for implanton 11-20-2023 * * *Final Report* * * DATE OF EXAM: Nov 20 2023 9:21AM W 0629 - [facility] Amos IVAN RT / PROCEDURE REASON: multiple diagnoses * * * * Physician Interpretation * * * * RESULT: #[id number] - [facility] OBINNAG W IVAN RT #[id number] - [facility] BREAST LTD RT UNILATERAL RIGHT DIGITAL DIAGNOSTIC MAMMOGRAM TOMOSYNTHESIS WITH CAD: 11/20/2023 HISTORY: Multiple Diagnoses / Short term follow up right breast.-Abnormal Mammogram /priors available for comparison Multiple Diagnoses. RESULT: TECHNIQUE: The study was acquired using full field digital technology and interpreted from soft copy. Digital Breast Tomosynthesis (DBT) images were obtained and used to assist in the interpretation of this examination. Current study was also evaluated with a Computer Aided Detection (CAD). Comparison is made to exams dated: 05/14/2023 mammogram, 04/16/2023 mammogram, 03/29/2022 mammogram, and 03/27/2021 mammogram - [facility]. The right breast is heterogeneously dense, which may obscure small masses. There is a 9 mm oval equal density focal asymmetry in the right breast at 6 o'clock middle depth. No other significant masses or calcifications are seen in the breast. [facility] Provider, [facility] - 11/20/2023 * * *Final Report* * * DATE OF EXAM: Nov 20 2023 9:21AM WRW 0629 - [facility] DIAG W IVAN RT / PROCEDURE REASON: multiple diagnoses * * * * Physician Interpretation * * * * RESULT: #[id number] - [facility] DIAG W IVAN RT #[id number] - [facility] US BREAST LTD RT UNILATERAL RIGHT DIGITAL DIAGNOSTIC MAMMOGRAM TOMOSYNTHESIS WITH CAD: 11/20/2023 HISTORY: Multiple Diagnoses / Short term follow up right breast.-Abnormal Mammogram /priors available for comparison Multiple Diagnoses. RESULT: TECHNIQUE: The study was acquired using full field digital technology and interpreted from soft copy. Digital Breast Tomosynthesis (DBT) images were obtained and used to assist in the interpretation of this examination. Current study was also evaluated with a Computer Aided Detection (CAD). Comparison is made to exams dated: 05/14/2023 mammogram, 04/16/2023 mammogram, 03/29/2022 mammogram, and 03/27/2021 mammogram - [facility]. The right breast is heterogeneously dense, which may obscure small masses. There is a 9 mm oval equal density focal asymmetry in the right breast at 6 o'clock middle depth. No other significant masses or calcifications are seen in the breast. IMPRESSION IMPRESSION: INCOMPLETE: NEEDS ADDITIONAL IMAGING EVALUATION The 9 mm oval equal density focal asymmetry in the right breast is indeterminate. An ultrasound is recommended. LIMITED ULTRASOUND OF RIGHT BREAST AND AXILLA: 11/20/2023 RESULT: Comparison is made to exams dated: 05/14/2023 mammogram, 04/16/2023 mammogram, 03/29/2022 mammogram, and 03/27/2021 mammogram - [facility]. Color flow and real-time ultrasound of the right breast 6 o'clock, and axilla regions were performed. Pleitez scale images of the real-time examination were reviewed. There is a 0.7 cm x 0.6 cm x 0.7 cm irregular mass with an angular margin in the right breast at 6 o'clock middle depth 3 cm from the nipple. This irregular mass is hypoechoic with posterior acoustic shadowing. This correlates with mammography findings. Directed ultrasound of the right axilla was negative. IMPRESSION: HIGHLY SUGGESTIVE OF MALIGNANCY - APPROPRIATE ACTION SHOULD BE TAKEN The 0.7 cm x 0.6 cm x 0.7 cm irregular mass in the right breast is highly suggestive of malignancy. An ultrasound guided biopsy is recommended. Negative right axillary ultrasound. Kyle patel/jaron:11/20/2023 10:08:55 Multiple national specialty organizations have released breast cancer screening guidelines for women at average risk for developing breast cancer - guidelines that are based on both evidence and opinion, yet differ on when to start and how often to screen for breast cancer. With representation from Breast Imaging, Internal Medicine, Women's Health, Family Medicine, and Medical/Surgical Oncology, the [facility] has carefully reviewed the data and reached the following consensus: 1) All women should engage in shared decision-making with their providers to decide when to start and how often to screen; 2) All women should have the opportunity to start screening mammography at age 40; 3) For women ages 45-55, we recommend annual screening mammograms; 4) For women ages 55 and over, we support both the transition from an annual to a biennial interval if this aligns more with patient's values and preferences, or continuation with annual screening; 5) All women should discuss with their providers when to stop screening mammograms. Sales Support Administrator(s): Nora Patterson, [facility]; Jessica Awad, [facility] OVERALL STUDY BIRADS: 5 Highly suggestive of malignancy - Appropriate action should be taken Collet Maker: Jaron Transcribe Date/Time: Nov 20 2023 8:47A Dictated by: KYLE ROSS MD This examination was interpreted and the report reviewed and electronically signed by: KYLE ROSS MD on Nov 20 2023 10:08AM [facility] No Panel InformationOrdered By: Cc Provider on 11-20-2023 [facility] No Panel Informationon 11-19 Radiology Study observation (narrative) [facility] US Breast - right limitedon 11-20-2023 * * *Final Report* * * DATE OF EXAM: Nov 20 2023 9:48AM U 0594 - [facility] US BREAST LTD RT / PROCEDURE REASON: multiple diagnoses * * * * Physician Interpretation * * * * #[id number] - [facility] DIAG W IVAN RT #[id number] - [facility] US BREAST LTD RT UNILATERAL RIGHT DIGITAL DIAGNOSTIC MAMMOGRAM TOMOSYNTHESIS WITH CAD: 11/20/2023 HISTORY: Multiple Diagnoses / Short term follow up right breast.-Abnormal Mammogram /priors available for comparison Multiple Diagnoses. RESULT: TECHNIQUE: The study was acquired using full field digital technology and interpreted from soft copy. Digital Breast Tomosynthesis (DBT) images were obtained and used to assist in the interpretation of this examination. Current study was also evaluated with a Computer Aided Detection (CAD). Comparison is made to exams dated: 05/14/2023 mammogram, 04/16/2023 mammogram, 03/29/2022 mammogram, and 03/27/2021 mammogram - [facility]. The right breast is heterogeneously dense, which may obscure small masses. There is a 9 mm oval equal density focal asymmetry in the right breast at 6 o'clock middle depth. No other significant masses or calcifications are seen in the breast. DIVISION OF RADIOLOGY Provider, [facility] - 11/20/2023 * * *Final Report* * * DATE OF EXAM: Nov 20 2023 9:48AM U 0594 - [facility] US BREAST LTD RT / PROCEDURE REASON: multiple diagnoses * * * * Physician Interpretation * * * * #[id number] - [facility] DIAG W IVAN RT #[id number] - [facility] US BREAST LTD RT UNILATERAL RIGHT DIGITAL DIAGNOSTIC MAMMOGRAM TOMOSYNTHESIS WITH CAD: 11/20/2023 HISTORY: Multiple Diagnoses / Short term follow up right breast.-Abnormal Mammogram /priors available for comparison Multiple Diagnoses. RESULT: TECHNIQUE: The study was acquired using full field digital technology and interpreted from soft copy. Digital Breast Tomosynthesis (DBT) images were obtained and used to assist in the interpretation of this examination. Current study was also evaluated with a Computer Aided Detection (CAD). Comparison is made to exams dated: 05/14/2023 mammogram, 04/16/2023 mammogram, 03/29/2022 mammogram, and 03/27/2021 mammogram - [facility]. The right breast is heterogeneously dense, which may obscure small masses. There is a 9 mm oval equal density focal asymmetry in the right breast at 6 o'clock middle depth. No other significant masses or calcifications are seen in the breast. IMPRESSION IMPRESSION: INCOMPLETE: NEEDS ADDITIONAL IMAGING EVALUATION The 9 mm oval equal density focal asymmetry in the right breast is indeterminate. An ultrasound is recommended. LIMITED ULTRASOUND OF RIGHT BREAST AND AXILLA: 11/20/2023 RESULT: Comparison is made to exams dated: 05/14/2023 mammogram, 04/16/2023 mammogram, 03/29/2022 mammogram, and 03/27/2021 mammogram - [facility]. Color flow and real-time ultrasound of the right breast 6 o'clock, and axilla regions were performed. Pleitez scale images of the real-time examination were reviewed. There is a 0.7 cm x 0.6 cm x 0.7 cm irregular mass with an angular margin in the right breast at 6 o'clock middle depth 3 cm from the nipple. This irregular mass is hypoechoic with posterior acoustic shadowing. This correlates with mammography findings. Directed ultrasound of the right axilla was negative. IMPRESSION: HIGHLY SUGGESTIVE OF MALIGNANCY - APPROPRIATE ACTION SHOULD BE TAKEN The 0.7 cm x 0.6 cm x 0.7 cm irregular mass in the right breast is highly suggestive of malignancy. An ultrasound guided biopsy is recommended. Negative right axillary ultrasound. Kyle patel/jaron:11/20/2023 10:08:55 Multiple national specialty organizations have released breast cancer screening guidelines for women at average risk for developing breast cancer - guidelines that are based on both evidence and opinion, yet differ on when to start and how often to screen for breast cancer. With representation from Breast Imaging, Internal Medicine, Women's Health, Family Medicine, and Medical/Surgical Oncology, the [facility] has carefully reviewed the data and reached the following consensus: 1) All women should engage in shared decision-making with their providers to decide when to start and how often to screen; 2) All women should have the opportunity to start screening mammography at age 40; 3) For women ages 45-55, we recommend annual screening mammograms; 4) For women ages 55 and over, we support both the transition from an annual to a biennial interval if this aligns more with patient's values and preferences, or continuation with annual screening; 5) All women should discuss with their providers when to stop screening mammograms. Sales Support Administrator(s): Nora Patterson, [facility]; Jessica Awad, [facility] OVERALL STUDY BIRADS: 5 Highly suggestive of malignancy - Appropriate action should be taken Collet Maker: Jaron Transcribe Date/Time: Nov 20 2023 8:47A Dictated by : KYLE ROSS MD This examination was interpreted and the report reviewed and electronically signed by: KYLE ROSS MD on Nov 20 2023 10:08AM EST [facility] NICHOLAS DIAG W IVAN RIGHTon - [facility] US BREAST LTD RIGHTon 2022 [facility] NICHOLAS SCREENING W TOMOon 04-16 [facility] NICHOLAS SCREENING W TOMOon 03-29 [facility] Vital Signs Date Time Vital Sign Value Performing Clinician Faci lity 01-21-2025 09:21-0400 Body mass index (BMI) [Ratio] 38.54 kg/m2 Juanita Emmanuel MD Work Phone: [facility] 01-21-2025 09:21-0400 Body weight 82.2 kg Juanita Emmanuel MD Work Phone: [facility] 01-21-2025 09:21-0400 Diastolic blood pressure 76 mm[Hg] Juanita Emmanuel MD Work Phone: [facility] 01-21-2025 09:21-0400 Heart rate 66 /min Juanita Emmanuel MD Work Phone: [facility] 01-21-2025 09:21-0400 Respiratory rate 16 /min Juanita Emmanuel MD Work Phone: [facility] 01-21-2025 09:21-0400 Systolic blood pressure 128 mm[Hg] Juanita Emmanuel MD Work Phone: [facility] 01-15-2024 09:56-0400 Body mass index (BMI) [Ratio] 39.13 kg/m2 Melissa Huynhhof RN CARDIOVASCULAR ICU.HAND CANDLE DIPPER Work Phone: [facility] 01-15-2024 09:56-0400 Body weight 83.46 kg Melissa Duf RN CARDIOVASCULAR ICU.HAND CANDLE DIPPER Work Phone: [facility] 01-15-2024 09:56-0400 Diastolic blood pressure 80 mm[Hg] Melissa Huynhhof RN CARDIOVASCULAR ICU.HAND CANDLE DIPPER Work Phone: [facility] 01-15-2024 09:56-0400 Heart rate 73 /min Melissa Huynhhof RN CARDIOVASCULAR ICU.HAND CANDLE DIPPER Work Phone: [facility] 01-15-2024 09:56-0400 Respiratory rate 16 /min Melissa Duf RN CARDIOVASCULAR ICU.HAND CANDLE DIPPER Work Phone: [facility] 01-15-2024 09:56-0400 SaO2% (BldA) [Mass fraction] 96 % Melissa Hansen RN CARDIOVASCULAR ICU.HAND CANDLE DIPPER Work Phone: [facility] 01-15-2024 09:56-0400 Systolic blood pressure 130 mm[Hg] Melissa Duf RN CARDIOVASCULAR ICU.HAND CANDLE DIPPER Work Phone: [facility] 12-16-2023 14:01-0400 Body height 146.1 cm Eze Linn MD Work Phone: [facility] 12-16-2023 14:01-0400 Body mass index (BMI) [Ratio] 39 kg/m2 Eze Linn MD Work Phone: [facility] 12-16-2023 14:01-0400 Body temperature 98.29 [degF] Eze Linn MD Work Phone: [facility] 12-16-2023 14:01-0400 Body weight 83.19 kg Eze Linn MD Work Phone: [facility] 12-16-2023 14:01-0400 Diastolic blood pressure 88 mm[Hg] Eze Linn MD Work Phone: [facility] 12-16-2023 14:01-0400 Heart rate 73 /min Eze Linn MD Work Phone: [facility] 12-16-2023 14:01-0400 SaO2% (BldA) [Mass fraction] 96 % Eze Linn MD Work Phone: [facility] 12-16-2023 14:01-0400 Systolic blood pressure 140 mm[Hg] Eze Linn MD Work Phone: [facility] 11-21-2023 09:02-0400 Body mass index (BMI) [Ratio] 39.4 kg/m2 Candace Cardona RN CARDIOVASCULAR ICU.HAND CANDLE DIPPER Work Phone: [facility] 11-21-2023 09:02-0400 Body temperature 98.49 [degF] Candace Cardona RN CARDIOVASCULAR ICU.HAND CANDLE DIPPER Work Phone: [facility] 11-21-2023 09:02-0400 Body weight 84.05 kg Candace Cardona RN CARDIOVASCULAR ICU.HAND CANDLE DIPPER Work Phone: [facility] 11-21-2023 09:02-0400 Diastolic blood pressure 96 mm[Hg] Candace Cardona RN CARDIOVASCULAR ICU.HAND CANDLE DIPPER Work Phone: [facility] 11-21-2023 09:02-0400 Heart rate 57 /min Candace Cardona RN CARDIOVASCULAR ICU.HAND CANDLE DIPPER Work Phone: [facility] 11-21-2023 09:02-0400 SaO2% (BldA) [Mass fraction] 98 % Candace Cardona RN CARDIOVASCULAR ICU.HAND CANDLE DIPPER Work Phone: [facility] 11-21-2023 09:02-0400 Systolic blood pressure 158 mm[Hg] Candace Cardona RN CARDIOVASCULAR ICU.HAND CANDLE DIPPER Work Phone: [facility] 05-22-2023 08:59-0500 Body temperature 98.01 [degF] Candace Cardona RN CARDIOVASCULAR ICU.HAND CANDLE DIPPER Work Phone: [facility] 05-22-2023 08:59-0500 Body weight 81.65 kg Candace Cardona RN CARDIOVASCULAR ICU.HAND CANDLE DIPPER Work Phone: [facility] 05-22-2023 08:59-0500 Diastolic blood pressure 84 mm[Hg] Candace Cardona RN CARDIOVASCULAR ICU.HAND CANDLE DIPPER Work Phone: [facility] 05-22-2023 08:59-0500 Heart rate 56 /min Candace Cardona RN CARDIOVASCULAR ICU.HAND CANDLE DIPPER Work Phone: [facility] 05-22-2023 08:59-0500 SaO2% (BldA) [Mass fraction] 100 % Candace Cardona RN CARDIOVASCULAR ICU.HAND CANDLE DIPPER Work Phone: [facility] 05-22-2023 08:59-0500 Systolic blood pressure 154 mm[Hg] Candace Cardona RN CARDIOVASCULAR ICU.HAND CANDLE DIPPER Work Phone: [facility] 05-15-2022 08:22-0500 Body height 147.3 cm Juanita Emmanuel MD Work Phone: [facility] 05-15-2022 08:22-0500 Body weight 76.11 kg Juanita Emmanuel MD Work Phone: [facility] 05-15-2022 08:22-0500 Diastolic blood pressure 84 mm[Hg] Juanita Emmanuel MD Work Phone: [facility] 05-15-2022 08:22-0500 Heart rate 64 /min Juanita Emmanuel MD Work Phone: [facility] 05-15-2022 08:22-0500 Respiratory rate 16 /min Juanita Emmanuel MD Work Phone: [facility] 05-15-2022 08:22-0500 Systolic blood pressure 136 mm[Hg] Juanita Emmanuel MD Work Phone: [facility] 04-25-2022 09:05-0400 Body temperature 98.01 [degF] Candace Cardona RN CARDIOVASCULAR ICU.HAND CANDLE DIPPER Work Phone: [facility] 04-25-2022 09:05-0400 Body weight 78.02 kg Candace Cardona RN CARDIOVASCULAR ICU.HAND CANDLE DIPPER Work Phone: [facility] 04-25-2022 09:05-0400 Diastolic blood pressure 82 mm[Hg] Candace Cardona RN CARDIOVASCULAR ICU.HAND CANDLE DIPPER Work Phone: [facility] 04-25-2022 09:05-0400 Heart rate 66 /min Candace Cardona RN CARDIOVASCULAR ICU.HAND CANDLE DIPPER Work Phone: [facility] 04-25-2022 09:05-0400 Systolic blood pressure 132 mm[Hg] [place] Cardona RN CARDIOVASCULAR ICU.HAND CANDLE DIPPER Work Phone: [facility] 10-09-2021 09:44-0400 Body height 147.3 cm Candace Cardona RN CARDIOVASCULAR ICU.HAND CANDLE DIPPER Work Phone: [facility] 10-09-2021 09:44-0400 Body temperature 97.59 [degF] [place] Cardona RN CARDIOVASCULAR ICU.HAND CANDLE DIPPER Work Phone: [facility] 10-09-2021 09:44-0400 Body weight 82.56 kg Candace Cardona RN CARDIOVASCULAR ICU.HAND CANDLE DIPPER Work Phone: [facility] 10-09-2021 09:44-0400 Diastolic blood pressure 73 mm[Hg] [place] Cardona RN CARDIOVASCULAR ICU.HAND CANDLE DIPPER Work Phone: [facility] 10-09-2021 09:44-0400 Heart rate 62 /min [place] Cardona RN CARDIOVASCULAR ICU.HAND CANDLE DIPPER Work Phone: [facility] 10-09-2021 09:44-0400 Systolic blood pressure 125 mm[Hg] Candace Cardona RN CARDIOVASCULAR ICU.HAND CANDLE DIPPER Work Phone: [facility] Encounters Encounter Date Encounter Type Care Provider Facility Start: 02-05-2025 End: 02-05-2025 ambulatory Juanita Emmanuel MD Work Phone: Family [facility] [place] Comment on above: How to get new docto r Start: 02-02-2025 End: 02-02-2025 Patient encounter procedure Madonna Riggs MA [facility] Comment on above: Population Health Na vigation Outreach ([place]/Phyllis/LEORA ) Start: 02-02-2025 End: 02-02-2025 ambulatory Madonna Riggs MA [facility] Start: 02-02-2025 End: 02-02-2025 Subsequent hospital visit by physician Screen Mammo [facility] Comment on above: Encounter for screen ing mammogram for malignant neoplasm of breast [Z12.31] Start: 01-21-2025 End: 01-21-2025 Office outpatient visit 25 minutes Juanita Emmanuel MD Work Phone: Family [facility] [place] Comment on above: Essential hypertensi on, benign (Primary Dx); Psoriasis; Screening for depression; Encounter for screening examination for other mental health and behavioral disorders; Encounter for screening mammogram for malignant neoplasm of breast; Acquired hypothyroidism; Moderate persistent asthma without complication (HCC); Rosacea Start: 01-21-2025 End: 01-21-2025 ambulatory JUANITA EMMANUEL Facility:[facility] Start: 01-07-2025 End: 01-07-2025 ambulatory JUANITA EMMANUEL Facility:[facility] Start: 12-30-2024 End: 01-01-2025 ambulatory Juanita Emmanuel MD Work Phone: [facility] Comment on above: Blood work Start: 10-27-2024 End: 10-27-2024 ambulatory Madonna Riggs MA [facility] [place] Start: 10-27-2024 End: 10-27-2024 Patient encounter [facility] [place] Comment on above: Population Health Na vigation Outreach ([place]/Workbench/ACO ) Start: 08-12-2024 End: 08-12-2024 ambulatory EZE LINN Facility:[facility] Start: 08-12-2024 End: 08-12-2024 Subsequent hospital visit by physician Diagnostic Mammo [facility] Mammogram Start: 04-25-2024 End: 04-25-2024 Patient encounter procedure [facility] Nurse [facility] Work Phone: Family [facility] [place] Start: 04-25-2024 End: 04-25-2024 ambulatory Immunization Clinic Nurse [place] Work Phone: Family [facility] Start: 03-17-2024 End: 03-17-2024 Refill Melissa Hansen APRN.CNP Work Phone: [facility] [place] Comment on above: Refill Request Start: 03-16-2024 End: 03-17-2024 Refill Espinoza Fajardo RN CARDIOVASCULAR ICU.HAND CANDLE DIPPER Work Phone: [facility] [place] Comment on above: Refill Request Start: 02-17-2024 End: 02-17-2024 ambulatory Juanita Emmanuel MD Work Phone: Family [facility] [place] Comment on above: COVID (Primary Dx) Start: 02-17-2024 End: 02-17-2024 Telemedicine consultation with patient Juanita Emmanuel MD Work Phone: Family [facility] [place] Start: 02-17-2024 End: 02-17-2024 Telephone encounter Juanita Emmanuel MD Work Phone: [facility] Comment on above: Covid Positive (Per home test, patient is positive for covid) Start: 02-10-2024 End: 02-10-2024 ambulatory JUANITA EMMANUEL Facility:[facility] Start: 02-10-2024 End: 02-10-2024 Patient encounter procedure Eze Linn MD Work Phone: General Surgery Comment on above: Fibroadenoma of [address], right (Primary Dx) Start: 01-31-2024 Telephone encounter Yari Woods RN Mammography Comment on above: Results Start: 01-29-2024 ambulatory EZE LINN Facili ty:[facility] Start: 01-29-2024 End: 01-29-2024 Subsequent hospital visit by physician Procedure Mammo [facility] Work Phone: Mammography Comment on above: Abnormal mammogram [ R92.8] Start: 01-15-2024 End: 01-15-2024 Subsequent hospital visit by physician [facility] Comment on above: Varicose veins of ca lf [I83.90] Start: 01-15-2024 Telephone encounter Melissa varma RN CARDIOVASCULAR ICU.HAND CANDLE DIPPER Work Phone: Family [facility] [place] Comment on above: Results (DVT US ) Start: 01-15-2024 End: 01-15-2024 Patient encounter procedure Melissa Hansen APRN.HAND CANDLE DIPPER Work Phone: Family [facility] [place] Comment on above: Cellulitis of skin ( Primary Dx); Calf swelling; Varicose veins of calf Start: 01-07-2024 ambulatory Jai Gutierrez DO Work Phone: Mammography Comment on above: Mammogram Abnormalit y Start: 01-07-2024 Patient encounter procedure Jai Gutierrez DO Work Phone: Mammography Start: 01-06-2024 End: 01-06-2024 Refill Espinoza Fajardo APRN.HAND CANDLE DIPPER Work Phone: [facility] Comment on above: Refill Request Abnormal mammogram ( Primary Dx) Start: 12-16-2023 End: 12-16-2023 Patient encounter procedure Eze Linn MD Work Phone: General Surgery Comment on above: Abnormal mammogram ( Primary Dx) Start: 11-21-2023 End: 11-21-2023 ambulatory Candace Cardona APRN.HAND CANDLE DIPPER Work Phone: Hematology/Oncology Comment on above: Personal history of breast cancer (Primary Dx); Abnormal mammogram of right breast Start: 11-21-2023 End: 11-21-2023 Patient encounter procedure Candace Cardona APRN.HAND CANDLE DIPPER Work Phone: Hematology/Oncology Start: 11-20-2023 End: 11-20-2023 Subsequent hospital visit by physician Diagnostic Mammo [facility] Comment on above: Personal history of breast cancer [Z85.3] Start: 09-29-2023 Get Medical Advice Juanita cheung MD Work Phone: Family [facility] Comment on above: Medication refill Start: 05-22-2023 End: 05-22-2023 ambulatory Candace Cardona APRN.HAND CANDLE DIPPER Work Phone: Hematology/Oncology Comment on above: Personal history of breast cancer (Primary Dx); 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 Start: 05-14-2023 End: 05-14-2023 Subsequent hospital visit by physician Diagnostic Mammo [facility] Comment on above: Invasive ductal carc inoma of left breast in female (HCC) [C50.912] Start: 05-03-2023 Telephone encounter Juanita vallejo MD Work Phone: [facility] Comment on above: Orders Start: 04-20-2023 Refill Juanita dumont MD Work Phone: [facility] Comment on above: Refill Request Start: 04-17-2023 Documentation procedure Mammog karri Coordinator [facility] Start: 04-17-2023 Letter encounter Mammography Coordinator [facility] Department Start: 04-17-2023 Telephone encounter Jyotsna waters MD Work Phone: Mammography Comment on above: Mammogram Result Fabian l Back Orders Start: 04-16-2023 End: 04-16-2023 Subsequent hospital visit by physician Screen Mammo [facility] Comment on above: Encounter for screen ing mammogram for high-risk patient [Z12.31] Start: 03-23-2023 End: 03-23-2023 ambulatory [facility] Start: 01-16-2023 Refill Juanita dumont MD Work Phone: [facility] Comment on above: Refill Request Start: 05-16-2022 Telephone encounter Juanita vallejo MD [facility] Comment on above: Results Start: 05-15-2022 End: 05-15-2022 Patient encounter procedure [facility]ita [facility] MD [facility] Comment on above: Essential hypertensi on, benign (Primary Dx); Acquired hypothyroidism; Moderate persistent asthma without complication; 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 (HCC); Obesity, Class III, BMI 40-49.9 (morbid obesity) (HCC) Start: 04-25-2022 End: 04-25-2022 ambulatory Candace Cardona APRN.CNP Work Phone: Hematology/Oncology Comment on above: Invasive ductal carc inoma of left breast in female (HCC) (Primary Dx); Encounter for screening mammogram for high-risk patient; Personal history of breast cancer Start: 04-25-2022 End: 04-25-2022 Patient encounter procedure Candace Cardona APRN.HAND CANDLE DIPPER Work Phone: [facility] Start: 04-14-2022 End: 04-14-2022 ambulatory Immunization Clinic Nurse [place] Work Phone: [facility] Comment on above: Arrived Start: 03-29-2022 End: 03-29-2022 Subsequent hospital visit by physician Screen Mammo [facility] Comment on above: Invasive ductal carc inoma of left breast in female (HCC) [C50.912] Start: 01-16-2022 Refill Juanita dumont MD Work Phone: [facility] Comment on above: Refill Request Start: 11-14-2021 Refill Juanita dumont MD Work Phone: [facility] Comment on above: Refill Request Start: 10-09-2021 End: 10-09-2021 ambulatory Candace Cardona APRN.HAND CANDLE DIPPER Work Phone: Hematology/Oncology Comment on above: Invasive ductal carc inoma of left breast in female (HCC) (Primary Dx); Encounter for screening mammogram for high-risk patient Start: 10-09-2021 End: 10-09-2021 Patient encounter procedure Candace Cardona APRN.HAND CANDLE DIPPER Work Phone: [facility] Start: 09-18-2021 Refill Espinoza ESCOTO RN.HAND CANDLE DIPPER Work Phone: [facility] Comment on above: Refill Request Procedures Date Procedure Procedure Detail Performing Clinician Start: 01-21-2025 Adult depression scr eening assessment Juanita Emmanuel MD Work Phone: Start: 01-07-2025 Lipid 1996 panel - S gaudencio or Plasma Juanita Emmanuel MD Work Phone: Start: 08-12-2024 Digital breast tomosynthesis unilateral Eze Linn MD Work Phone: Start: 04-25-2024 PFIZER-BIONTECH COVI D-19 VACCINE AGE 12+ YR (COMIRNATY) Mohamud Carrasquillo MD Work Phone: Start: 01-29-2024 Digital breast tomosynthesis unilateral Eze Linn MD Work Phone: Start: 01-29-2024 Bx breast w/device 1 st lesion ultrasound guid Eze Linn MD Work Phone: Start: 01-15-2024 Dup-scan xtr veins unilateral/limited study Melissa Hansen RN CARDIOVASCULAR ICU.HAND CANDLE DIPPER Work Phone: Start: 11-20-2023 Us breast uni real t ivelisse with image limited Candace Cardona RN CARDIOVASCULAR ICU.HAND CANDLE DIPPER Work Phone: Start: 11-20-2023 Digital breast tomosynthesis unilateral Candace Cardona RN CARDIOVASCULAR ICU.HAND CANDLE DIPPER Work Phone: Start: 05-17-2023 Lipid 1996 panel - S gaudencio or Plasma [place] Cardona RN CARDIOVASCULAR ICU.HAND CANDLE DIPPER Work Phone: Start: 05-14-2023 Us breast uni real t ivelisse with image limited [place] Cardona RN CARDIOVASCULAR ICU.HAND CANDLE DIPPER Work Phone: Start: 05-14-2023 Digital breast tomosynthesis unilateral [place] Cardona RN CARDIOVASCULAR ICU.HAND CANDLE DIPPER Work Phone: Start: 04-16-2023 Screening digital br east tomosynthesis bi [place] Cardona RN CARDIOVASCULAR ICU.HAND CANDLE DIPPER Work Phone: Start: 03-23-2023 PFIZER-BIONTECH COVI D-19 VACCINE ( SEASON) AGE 12+ YR Juanita Emmanuel MD Work Phone: Start: 03-23-2023 INFLUENZA VACCINE, P RSV FREE, AGE 65+ YR, HIGH DOSE, QUADRIVALENT (FLUZONE HIGH-DOSE) Juanita Emmanuel MD Work Phone: Start: 05-15-2022 Lipid 1996 panel - S gaudencio or Plasma Immunization [place] Work Phone: Start: 04-14-2022 INFLUENZA SEASONAL QUADRIVALENT HIGH DOSE AGE 65+ Feliciano Plunkett DO Work Phone: Start: 03-29-2022 NICHOLAS SCREENING W IVAN Nas Cardona RN CARDIOVASCULAR ICU.HAND CANDLE DIPPER Work Phone: Start: 03-29-2022 Mammography Screen Wst r Start: 10-09-2021 Adult depression scr eening assessment Candace Rosalesenter RN CARDIOVASCULAR ICU.HAND CANDLE DIPPER Work Phone: Start: 04-01-2021 Adult depression scr eening assessment Espinoza Fajardo RN CARDIOVASCULAR ICU.HAND CANDLE DIPPER Work Phone: Start: 03-27-2021 Mammography Espinoza castillo RN CARDIOVASCULAR ICU.HAND CANDLE DIPPER Work Phone: Start: 03-31-2019 Colonoscopy Espinoza castillo RN CARDIOVASCULAR ICU.HAND CANDLE DIPPER Work Phone: Plan of Treatment Date Care Activity Detail Author Start: 01-07-2030 Lipid panel Lipid Screening [facility] Start: 05-17-2028 Lipid 1996 panel - Serum or Plasma Lipid Screening [facility] Start: 05-17-2028 Lipid panel Lipid Screening [facility] Start: 01-08-2028 [facility] Start: 05-15-2027 Lipid 1996 panel - Serum or Plasma Lipid Screening [facility] Start: 05-15-2027 LIPID SCREEN LIPID SCREEN [facility] Start: 05-17-2026 Diabetes Screening Diabetes Screen[facility] Start: 02-02-2026 Screening for malign ant neoplasm of breast Mammogram Screening [facility] Start: 01-21-2026 Annual PCP Team Butcher Helper shakeel Disease Visit Annual PCP Team Chronic Disease Visit [facility] Start: 01-21-2026 Anxiety Screening Anxiety Screening [facility] Start: 01-21-2026 Depression Screening Depression Scre ening [facility] Start: 01-21-2026 Hepatitis C screening Hepatitis C [facility] Comment on above: Postponed from 10/22 (Declined at this time) Start: 05-15-2025 DIABETES SCREEN DIABETES SCREEN [facility] Start: 05-15-2025 Diabetes Screening Diabetes Screenin g [facility] Start: 03-18-2025 End: 03-18-2025 Patient encounter procedure 03/18/2025 9:40 AM EDT [facility] [address] [place] [address] Mili Mclain MD [address] [place] [address] est care [facility] Sonya Comment on above: est care Start: 02-22-2025 Influenza vaccination Influenza Vacc ine (#1) [facility] Start: 02-16-2025 Annual PCP Team Butcher Helper shakeel Disease Visit Annual PCP Team Chronic Disease Visit [facility] Start: 01-28-2025 Screening for malign ant neoplasm of colon Colorectal Cancer Screening [facility] Comment on above: Postponed from 10/22 (Declined at this time) Start: 01-21-2025 End: 01-21-2025 Patient encounter procedure 01/21/2025 9:20 AM EDT Office Visit [facility] Sonya [address] [place] [address] Juanita Emmanuel MD [address] [place], [place] [id number] Blood pressure, will prob need yearly bloodwork [facility] Sonya Comment on above: Blood pressure, will prob need yearly bloodwork Start: 01-19-2025 LIPID SCREEN LIPID SCREEN [facility] Start: 01-14-2025 Annual PCP Team Butcher Helper shakeel Disease Visit Annual PCP Team Chronic Disease Visit [facility] Start: 01-01-2025 End: 04-02-2025 CBC W Auto Differential panel - Blood COMPLETE BLOOD COUNT AND DIFFERENTIAL Lab Routine Essential hypertension, benign Expected: 01/01/2025 (Approximate), Expires: 04/02/2025 [facility] Comment on above: Expected: 01/01/2025 (Approximate), Expires: 04/02/2025 Start: 01-01-2025 End: 04-02-2025 Comprehensive metabolic 2000 panel - Serum or Plasma COMPREHENSIVE METABOLIC PANEL Lab Routine Essential hypertension, benign Expected: 01/01/2025 (Approximate), Expires: 04/02/2025 [facility] Comment on above: Expected: 01/01/2025 (Approximate), Expires: 04/02/2025 Start: 01-01-2025 End: 04-02-2025 Lipid 1996 panel - Serum or Plasma LIPID PANEL, FASTING Lab Routine Essential hypertension, benign Expected: 01/01/2025 (Approximate), Expires: 04/02/2025 [facility] Work Phone: Comment on above: Expected: 01/01/2025 (Approximate), Expires: 04/02/2025 Start: 01-01-2025 End: 04-02-2025 Thyrotropin [Units/volume] in Serum or Plasma THYROID STIMULATING HORMONE Lab Routine Acquired hypothyroidism Expected: 01/01/2025 (Approximate), Expires: 04/02/2025 [facility] Comment on above: Expected: 01/01/2025 (Approximate), Expires: 04/02/2025 Start: 2024 Covid-19 Vaccine () Covid-19 Vaccine () [facility] Start: 08-12-2024 End: 03-11-2025 MG Breast - right Diagnostic for implant NICHOLAS DIAGNOSTIC RIGHT Radiology Routine Fibroadenoma of breast, right Expected: 08/12/2024, Expires: 03/11/2025 [facility] Work Phone: Comment on above: Expected: 08/12/2024 , Expires: 03/11/2025 Start: 08-12-2024 End: 08-12-2024 Patient encounter procedure 08/12/2024 8:30 AM EST Appointment Mammogram [address] [place] [address] MAMMO DIAGNOSTIC RT Mammogram Comment on above: MAMMO DIAGNOSTIC RT Start: 06-24-2024 Advance Directive Discussion Advance Directive Discussion [facility] Start: 05-21-2024 Annual PCP Team Butcher Helper shakeel Disease Visit Annual PCP Team Chronic Disease Visit [facility] Start: 05-21-2024 Colorectal Cancer Screening Colorectal Cancer Screening [facility] Comment on above: Postponed from 10/22 (Declined at this time) Start: 05-21-2024 Hepatitis C Screening Hepatitis C Dc lesly [facility] Comment on above: Postponed from 10/22 (Declined at this time) Start: 05-21-2024 Hepatitis C screening Hepatitis C Sc reening [facility] Comment on above: Postponed from 10/22 (Declined at this time) Start: 05-21-2024 Screening for malign ant neoplasm of colon Colorectal Cancer Screening [facility] Comment on above: Postponed from 10/22 (Declined at this time) Start: 05-03-2024 DIABETES SCREEN DIABETES SCREEN [facility] Start: 04-16-2024 Mammography Mammogram Screening [facility] Start: 04-16-2024 Screening for malign ant neoplasm of breast Mammogram Screening [facility] Start: 02-23-2024 Covid-19 Vaccine () Covid-19 Vaccine () [facility] Start: 02-23-2024 Influenza vaccination Influenza Vacc ine (#1) [facility] Start: 02-10-2024 End: 02-10-2024 Patient encounter procedure 02/10/2024 1:00 PM EDT Office Visit General Surgery [address] [place], [place] [id number] Eze Linn MD [address] [place] [place], [place] [id number] 01/29/2024 right us br bx General Surgery Comment on above: 01/29/2024 right us br bx Start: 01-29-2024 End: 01-29-2024 Patient encounter procedure 01/29/2024 10:00 AM EDT Appointment Mammography [address] [place] [address] RIGHT BREAST ULTRASOUND GUIDED CORE BIOPSY Mammography Comment on above: RIGHT BREAST ULTRASO UND GUIDED CORE BIOPSY Start: 01-06-2024 End: 01-06-2024 Patient encounter procedure General Surgery Comment on above: U/S RIGHT BREAST BX U/S RIGHT BREAST BX w/ mammotome Start: 12-16-2023 End: 12-16-2023 Patient encounter procedure 12/16/2023 2:00 PM EDT Office Visit General Surgery [address] [place] [id number] Eze Linn MD [address] [place] [address] consult breast General Surgery Comment on above: consult breast Start: 11-21-2023 End: 11-21-2023 ambulatory 11/21/2023 9:00 AM EDT Visit (SP) Office Hematology/Oncology [address] [place] [id number] Candace Cardona APRN.HAND CANDLE DIPPER [address] [place] [address] 6 MO OV/DX NICHOLAS 11/19* Hematology/Oncology Comment on above: 6 MO OV/DX NICHOLAS 11/19* Start: 07-23-2023 Covid-19 Vaccine (4 - Additional dose for Cristina series) Covid-19 Vaccine (4 - Additional dose for Cristina series) [facility] Start: 07-23-2023 Covid-19 Vaccine () Covid-19 Vaccine () [facility] Start: 06-24-2023 Advance Directive Discussion Advance Directive Discussion [facility] Start: 06-24-2023 Behavioral Health Screening Behavioral Health Screening [facility] Start: 05-15-2023 ANNUAL PCP TEAM WELDING EQUIPMENT REPAIRER SHAKEEL DISEASE VISIT ANNUAL PCP TEAM CHRONIC DISEASE VISIT [facility] Start: 05-15-2023 COLORECTAL CANCER SCREENING COLORECTAL CANCER SCREENING [facility] Comment on above: Postponed from 10/22 (Declined at this time) Start: 05-15-2023 HEPATITIS C SCREENING HEPATITIS C [facility] Comment on above: Postponed from 10/22 (Declined at this time) Start: 05-06-2023 End: 08-05-2023 CBC W Auto Differential panel - Blood CBC + DIFF Lab Routine Essential hypertension, benign Acquired hypothyroidism Expected: 05/06/2023 (Approximate), Expires: 08/05/2023 [facility] Work Phone: Comment on above: Expected: 05/06/2023 (Approximate), Expires: 08/05/2023 Start: 05-06-2023 End: 08-05-2023 Comprehensive metabolic 2000 panel - Serum or Plasma COMP METABOLIC PANEL Lab Routine Essential hypertension, benign Expected: 05/06/2023 (Approximate), Expires: 08/05/2023 [facility] Work Phone: Comment on above: Expected: 05/06/2023 (Approximate), Expires: 08/05/2023 Start: 05-06-2023 End: 08-05-2023 Lipid 1996 panel - Serum or Plasma LIPID PANEL BASIC Lab Routine Essential hypertension, benign Acquired hypothyroidism Expected: 05/06/2023 (Approximate), Expires: 08/05/2023 [facility] Work Phone: Comment on above: Expected: 05/06/2023 (Approximate), Expires: 08/05/2023 Start: 05-06-2023 End: 08-05-2023 Thyrotropin [Units/volume] in Serum or Plasma TSH BLD Lab Routine Acquired hypothyroidism Expected: 05/06/2023 (Approximate), Expires: 08/05/2023 [facility] Work Phone: Comment on above: Expected: 05/06/2023 (Approximate), Expires: 08/05/2023 Start: 03-29-2023 Mammography [facility] Start: 02-22-2023 Influenza vaccination INFLUENZA (#1) [facility] Start: 10-09-2022 Adult depression screening assessment DEPRESSION SCREENING [facility] Start: 10-09-2022 BP CONTROLLED (<130/80) BP CONTROLLE D (<130/80) [facility] Start: 07-17-2022 COVID-19 VACCINE (4 - Additional dose for Cristina series) COVID-19 VACCINE (4 - Additional dose for Cristina series) [facility] Start: 06-24-2022 ADVANCE DIRECTIVE DISCUSSION ADVANCE DIRECTIVE DISCUSSION [facility] Start: 06-24-2022 DEPRESSION ASSESSMENT DEPRESSION ASS ESSMENT [facility] Start: 05-15-2022 End: 07-15-2022 CBC W Auto Differential panel - Blood [facility] Work Phone: Comment on above: Expected: 05/15/2022 , Expires: 07/15/2022 Start: 05-15-2022 End: 07-15-2022 Comprehensive metabolic 2000 panel - Serum or Plasma [facility] Work Phone: Comment on above: Expected: 05/15/2022 , Expires: 07/15/2022 Start: 05-15-2022 End: 07-15-2022 Lipid 1996 panel - Serum or Plasma [facility] Work Phone: Comment on above: Expected: 05/15/2022 , Expires: 07/15/2022 Start: 05-15-2022 End: 07-15-2022 Thyrotropin [Units/volume] in Serum or Plasma [facility] Work Phone: Comment on above: Expected: 05/15/2022 , Expires: 07/15/2022 Start: 05-03-2022 ANNUAL PCP TEAM WELDING EQUIPMENT REPAIRER SHAKEEL DISEASE VISIT ANNUAL PCP TEAM CHRONIC DISEASE VISIT [facility] Start: 04-01-2022 Adult depression screening assessment DEPRESSION SCREENING [facility] Start: 03-27-2022 Mammography MAMMOGRAM [facility] Start: 02-22-2022 Influenza vaccination INFLUENZA (#1) [facility] Start: 06-27-2021 COVID-19 VACCINE (3 - Booster for Cristina series) COVID-19 VACCINE (3 - Booster for Cristina series) [facility] Start: 06-24-2021 ADVANCE DIRECTIVE DISCUSSION ADVANCE DIRECTIVE DISCUSSION [facility] Start: 06-24-2021 DEPRESSION ASSESSMENT DEPRESSION ASS ESSMENT [facility] Start: 10-22-2020 PNEUMOVAX AGE 65 AND OVER WITH 5YR LOOKBACK (#1) PNEUMOVAX AGE 65 AND OVER WITH 5YR LOOKBACK (#1) [facility] Start: 09-29-2020 COVID-19 VACCINE (2 - Cristina risk 3-dose series) COVID-19 VACCINE (2 - Cristina risk 3-dose series) [facility] Start: 09-22-2020 Medicare Annual Wellness Visit Medicare Annual Wellness Visit [facility] Start: 03-31-2020 Colonoscopy COLONOSCOPY [facility] Start: 03-31-2020 COLORECTAL CANCER SCREENING COLORECTAL CANCER SCREENING [facility] Start: 03-31-2020 Screening for malign ant neoplasm of colon [facility] Start: 10-02-2016 Urine microalbumin profile [facility] Start: 2015 RSV Vaccine (1 - 1-d ose 60+ series) RSV Vaccine (1 - 1-dose 60+ series) [facility] Start: 2015 RSV Vaccine (1 - Ris k 60-74 years 1-dose series) RSV Vaccine (1 - Risk 60-74 years 1-dose series) [facility] Start: 02-16-2015 Pneumococcal Vaccine : 65+ (2 - PCV) Pneumococcal Vaccine: 65+ (2 - PCV) [facility] Start: 02-16-2015 PNEUMOCOCCAL: 65+ (2 - PCV) PNEUMOCOCCAL: 65+ (2 - PCV) [facility] Start: 10-22-2005 SHINGRIX VACCINE (1 of 2) SHINGRIX VACCINE (1 of 2) [facility] Start: 10-22-2000 COLOGUARD (FIT-DNA) COLOGUARD (FIT-D NA) [facility] Start: 10-22-[address] COLONOGRAPHY [facility] Start: 10-22-2000 FECAL OCCULT BLOOD FECAL OCCULT BLOO D [facility] Start: 10-22-2000 Screening for malign ant neoplasm of colon [facility] Start: 10-22-2000 SIGMOIDOSCOPY SIGMOIDOSCOPY [facility] Start: 10-22-1974 SHINGRIX VACCINE (1 of 2) SHINGRIX VACCINE (1 of 2) [facility] Start: 10-22-1973 Anxiety Screening Anxiety Screening [facility] Start: 10-22-1973 BP CONTROLLED (<130/80) BP CONTROLLE D (<130/80) [facility] Start: 10-22-1973 Depression Screening Depression Scre ing [facility] Start: 10-22-1973 HEPATITIS C SCREENING HEPATITIS C [facility] Start: 10-22-1973 Hepatitis C screening Hepatitis C [facility] Start: 10-22-1973 HIV SCREENING HIV SCREENING [facility] Start: 10-22-1973 SPIROMETRY SPIROMETRY [facility] Start: 10-22-1961 PNEUMOCOCCAL: 65+ (1 - PCV) PNEUMOCOCCAL: 65+ (1 - PCV) [facility] End: 02-20-2026 DBT Breast - bilateral screening NICHOLAS SCREENING W IVAN Radiology Routine Encounter for screening mammogram for malignant neoplasm of breast 1 Occurrences starting 01/21/2025 until 02/20/2026 [facility] Work Phone: Comment on above: 1 Occurrences starti ng 01/21/2025 until 02/20/2026 DBT Breast - bilater al screening NICHOLAS SCREENING W IVAN Radiology Routine Encounter for screening mammogram for malignant neoplasm of breast 02/02/2025 10:01 AM EDT [facility] Work Phone: End: 05-16-2024 NICHOLAS DIAGNOSTIC RIGHT NICHOLAS DIAGNOSTIC RIGHT Radiology Routine 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 (HCC) Abnormality of right breast on screening mammogram 1 Occurrences starting 04/17/2023 until 05/16/2024 [facility] Work Phone: Comment on above: 1 Occurrences starti ng 04/17/2023 until 05/16/2024 End: 06-20-2024 NICHOLAS DIAGNOSTIC RIGHT NICHOLAS DIAGNOSTIC RIGHT Radiology Routine Personal history of breast cancer 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 (HCC) Abnormal mammogram of right breast 1 Occurrences starting 05/22/2023 until 06/20/2024 [facility] Work Phone: Comment on above: 1 Occurrences starti ng 05/22/2023 until 06/20/2024 End: 11-08-2022 NICHOLAS SCREENING W IVAN NICHOLAS SCREENING W IVAN Radiology Routine 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 (HCC) Encounter for screening mammogram for high-risk patient 1 Occurrences starting 10/09/2021 until 11/08/2022 [facility] Work Phone: Comment on above: 1 Occurrences starti ng 10/09/2021 until 11/08/2022 End: 05-25-2023 NICHOLAS SCREENING W IVAN NICHOLAS SCREENING W IVAN Radiology Routine Encounter for screening mammogram for high-risk patient Personal history of breast cancer 1 Occurrences starting 04/25/2022 until 05/25/2023 [facility] Work Phone: Comment on above: 1 Occurrences starti ng 04/25/2022 until 05/25/2023 SURGICAL PATHOLOGY [facility] Work Phone: Comment on above: Release Upon Orderin g for 1 Occurrences starting 01/29/2024, 1 completed US BREAST BIOPSY RIG HT (POC) SURG USE ONLY US BREAST BIOPSY RIGHT (POC) SURG USE ONLY Imaging Procedures Routine Abnormal mammogram Ordered: 01/06/2024 [facility] Work Phone: Comment on above: Ordered: 01/06/2024 End: 05-16-2024 US BREAST LTD RIGHT US BREAST LTD RIGHT Radiology Routine 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 (HCC) Abnormality of right breast on screening mammogram 1 Occurrences starting 04/17/2023 until 05/16/2024 [facility] Work Phone: Comment on above: 1 Occurrences starti ng 04/17/2023 until 05/16/2024 End: 06-20-2024 US BREAST LTD RIGHT US BREAST LTD RIGHT Radiology Routine Personal history of breast cancer 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 (HCC) Abnormal mammogram of right breast 1 Occurrences starting 05/22/2023 until 06/20/2024 [facility] Work Phone: Comment on above: 1 Occurrences starti ng 05/22/2023 until 06/20/2024 End: 02-04-2025 US Guidance for biopsy of Breast - right US BIOPSY BREAST RIGHT Radiology Routine Abnormal mammogram 1 Occurrences starting 01/06/2024 until 02/04/2025 [facility] Comment on above: 1 Occurrences starti ng 01/06/2024 until 02/04/2025 End: 01-14-2025 US Lower extremity vein US LEG VEIN DVT UNL VAS LAB Vascular Lab STAT Varicose veins of calf Calf swelling 1 Occurrences starting 01/15/2024 until 01/14/2025 [facility] Work Phone: Comment on above: 1 Occurrences starti ng 01/15/2024 until 01/14/2025 End: 02-13-2025 US Lower extremity vein - right US DVT LOWER RIGHT Radiology STAT Varicose veins of calf Calf swelling 1 Occurrences starting 01/15/2024 until 02/13/2025 [facility] Comment on above: 1 Occurrences starti ng 01/15/2024 until 02/13/2025 US Lower extremity v ein - right US DVT LOWER RIGHT Radiology STAT Varicose veins of calf Calf swelling 01/15/2024 4:27 PM EDT [facility] Immunizations Immunization Date Immunization Notes Care Provider Fa cility 04-25-2024 COVID-19 vaccine, ag e 12+ yr (PFIZER-BIONTECH COMIRNATY) Immunization Craig Work Phone: [facility] 04-25-2024 influenza, high dose seasonal, preservative-free Immunization Sonya Work Phone: [facility] 04-25-2024 influenza virus vaccine, unspecified formulation Juanita Emmanuel MD Work Phone: [facility] 05-21-2023 pneumococcal (PCV20) vaccine, 20 valent (PREVNAR 20) Candace Cardona RN CARDIOVASCULAR ICU.HAND CANDLE DIPPER Work Phone: [facility] 03-23-2023 COVID-19 vaccine, ag e 12+ yr, season (PFIZER-BIONTECH) Immunization Sonya Work Phone: [facility] Work Phone: 03-23-2023 influenza (HD-IIV4) vaccine, age 65+ yr, high dose, quadrivalent, PF (FLUZONE HIGH-DOSE) Immunization Craig Work Phone: [facility] 03-23-2023 influenza virus vaccine, unspecified formulation Espinoza Sctoty RN CARDIOVASCULAR ICU.HAND CANDLE DIPPER Work Phone: [facility] 04-14-2022 influenza, high-dose , quadrivalent vaccine (FLUZONE HIGH DOSE QUADRIVALENT) Immunization Craig Work Phone: [facility] 04-03-2021 influenza, high-dose , quadrivalent vaccine (FLUZONE HIGH DOSE QUADRIVALENT) Espinoza Scotty RN CARDIOVASCULAR ICU.HAND CANDLE DIPPER Work Phone: [facility] Work Phone: 03-19-2020 influenza, injectabl e, quadrivalent, contains preservative Espinoza Scotty RN CARDIOVASCULAR ICU.HAND CANDLE DIPPER Work Phone: [facility] Work Phone: 03-27-2019 influenza, injectabl e, quadrivalent, preservative free Espinoza Scotty RN CARDIOVASCULAR ICU.HAND CANDLE DIPPER Work Phone: [facility] 03-24-2018 influenza, injectabl e, quadrivalent, preservative free Espinoza Scotty RN CARDIOVASCULAR ICU.HAND CANDLE DIPPER Work Phone: [facility] 03-25-2017 influenza, injectabl e, quadrivalent, preservative free Espinoza Scotty RN CARDIOVASCULAR ICU.HAND CANDLE DIPPER Work Phone: [facility] 07-23-2016 influenza, injectabl e, quadrivalent, preservative free Espinoza Scotty RN CARDIOVASCULAR ICU.HAND CANDLE DIP[employer] Work Phone: [facility] 03-26-2015 influenza, injectabl e, quadrivalent, contains preservative Espinoza Scotty RN CARDIOVASCULAR ICU.HAND CANDLE D[employer] Work Phone: [facility] Work Phone: 04-07-2014 influenza, seasonal, injectable Espinoza Scotty RN CARDIOVASCULAR ICU.[employer] Work Phone: [facility] Work Phone: 02-16-2014 pneumococcal polysaccharide vaccine, 23 valent Espinoza Scotty RN CARDIOVASCULAR ICU.[employer] Work Phone: [facility] 04-12-2012 influenza virus vaccine, unspecified formulation Espinoza Scotty RN CARDIOVASCULAR ICU.[facility] Work Phone: [facility] 03-28-2010 influenza virus vaccine, unspecified formulation Espinoza Scotty RN CARDIOVASCULAR ICU.[facility] Work Phone: [facility] 05-10-2009 novel [id number], all formulations Espinoza Scotty RN CARDIOVASCULAR ICU.[employer] Work Phone: [facility] Work Phone: 10-02-2006 tetanus toxoid, redu josie diphtheria toxoid, and acellular pertussis vaccine, adsorbed Espinoza Scotty RN CARDIOVASCULAR ICU.[employer]LE [employer] Work Phone: [facility] Work Phone: 04-18-2006 influenza virus vaccine, unspecified formulation Espinoza Scotty RN CARDIOVASCULAR ICU.[employer] Work Phone: [facility] Work Phone: 04-11-2005 influenza virus vaccine, unspecified formulation Espinoza Scotty RN CARDIOVASCULAR ICU.HAND CANDLE D[employer] Work Phone: [facility] Work Phone: Payers Date Payer Category Payer Medicare MEDICARE MEDICAR E A AND B [id number] 2020-Present [phone] [place] [address] Medicare [id number] 2020 Medicare [id number] 2020 Medicare [id number] 1996 Government (not [facility] or Medicaid) [facility] [id number] 1996 Unknown [facility] [id number] 1996-Present [phone] [address] [address] [place] [address] Indemnity [id number] 1996 Unknown [facility] [id number] 1996-Present [phone] [address] [address] [place] [address] Indemnity [id number] 1996 Unknown [id number] Social History Date Type Detail Facility Start: 08-19-2014 End: 01-21-2025 Tobacco smoking status WAIS Ex-smoker [facility] Start: 06-24-1983 End: 06-24-1998 History of tobacco use Current smoker [facility] Start: 06-24-1983 End: 06-24-1998 History of tobacco use Cigarette Smoker [facility] Start: 05-03-2021 End: 01-21-2025 Alcohol intake Current non-drinker of alcohol (finding) [facility] Start: 09-23-2019 End: 01-20-2020 History SDOH Alcohol Frequency 1 [facility] Start: 09-23-2019 History SDOH Social Connections Phone 4 [facility] Start: 09-23-2019 History SDOH Social Connections Get Together 2 [facility] Start: 09-23-2019 History SDOH Physica l Activity DPW 3 [facility] Start: 09-23-2019 Education 12 [facility] Start: 1955 Sex Assigned At Not on file [facility] Start: 09-29-2021 End: 05-15-2022 Exposure to SARS-CoV-2 (event) Not sure [facility] Start: 08-19-2014 End: 11-09-2022 Cigarettes smoked current (pack per day) - Reported 1 [facility] Work Phone: Start: 08-19-2014 End: 01-21-2025 Tobacco use and exposure Smokeless tobacco non-user [facility] Start: 11-09-2022 End: 02-17-2024 Tobacco use panel [facility] Work Phone: Start: 05-25-2012 Adult Depression Scr eening Assessment 0 [facility] Work Phone: Do you belong to any clubs or organizations such as jew groups, unions, fraternal or athletic groups, or school groups? Yes [facility] Are you now , , , , never or living with a partner? [facility] How often to you hav e a drink containing alcohol? Never [facility] How hard is it for y ou to pay for the very basics like food, housing, medical care, and heating Not very hard [facility] Do you feel stress - tense, restless, nervous, or anxious, or unable to sleep at night because your mind is troubled all the time - these days [OSQ] Only a little [facility] (I/We) worried wheth er (my/our) food would run out before (I/we) got money to buy more. Never true [facility] Has the [employer], [employer], [employer], or water [employer] threatened to shut off services in your home in past 12Mo No [facility] Do you feel stress - tense, restless, nervous, or anxious, or unable to sleep at night because your mind is troubled all the time - these days [OSQ] Not at all [facility] [facility] Functional Status Date Assessment Result Facility 12-13-2014 Are you deaf, or do you have serious difficulty hearing No 12/13/2014 8:57 AM Theodora Davis LPN No [facility] 12-13-2014 Are you blind, or do you have serious difficulty seeing, even when wearing glasses No 12/13/2014 8:57 AM Theodora Davis LPN No [facility] 12-13-2014 Do you have serious difficulty walking or climbing stairs No 12/13/2014 8:57 AM Theodora Davis LPN No [facility] 12-13-2014 Do you have difficul ty dressing or bathing No 12/13/2014 8:57 AM Theodora Davis LPN No [facility] 12-13-2014 Because of a physica l, mental, or emotional condition, do you have difficulty doing errands alone such as visiting a physician's office or shopping No 12/13/2014 8:57 AM Theodora Davis LPN No [facility] Mental Status Date Assessment Result Facility 12-13-2014 Because of a physica l, mental, or emotional condition, do you have serious difficulty concentrating, remembering, or making decisions No 12/13/2014 8:57 AM Theodora Davis LPN No [facility] Clinical Notes 09-18-2021 to 02-02-2025 Madonna Riggs MA - 02/02/2025 10:01 AM Jessica Feliciano RT(Nabil) - 02/02/2025 9:30 AM Juanita Payne MD - 01/21/2025 9:20 AM Madonna Foss MA - 10/27/2024 10:29 AM EDT Note Date & Type Note Facility 02-02-2025 Note HNO ID: [id number] Author: MADONNA RIGGS MA Service: ? Author Type: Cnc Machine Programmer Type: Progress Notes Filed: 02/02/2025 10:01 Note Text: POPULATION HEALTH NAVIGATION OUTREACH Action/FYI Contacted patient to schedule HCC care gaps and health maintenance. 1st attempt: Left message with my direct number 2nd attempt: My Chart message sent Topic Due (Y or N) Comments Annual Wellness Exam Yes PCP Follow up No Colorectal Cancer Screening Yes A1C No HTN/Controlling BP No HCC Yes Updated appointment notes No Reason for Outreach Care Gap/HCC or Scheduling Wellness Visits Care Gaps due: Medicare Annual Wellness Visit Colorectal Cancer Screening Patient Contacted: Unable or unnecessary to reach patient: Left message MyChart message sent HCC related Navigation Signature: Madonna Riggs MA February 02, 2025 10:01 AM [facility] 02-02-2025 History of Present illness Narrative POPULATION HEALTH NAVIGATION OUTREACH Action/FYI Contacted patient to schedule HCC care gaps and health maintenance. 1st attempt: Left message with my direct number 2nd attempt: My Chart message sent Topic Due (Y or N) Comments Annual Wellness Exam Yes PCP Follow up No Colorectal Cancer Screening Yes A1C No HTN/Controlling BP No HCC Yes Updated appointment notes No Reason for Outreach Care Gap/HCC or Scheduling Wellness Visits Care Gaps due: Medicare Annual Wellness Visit Colorectal Cancer Screening Patient Contacted: Unable or unnecessary to reach patient: Left message Panjohart message sent HCC related Navigation Signature: Madonna Riggs MA February 02, 2025 10:01 AM documented in this encounter [facility] 02-02-2025 History of Present illness Narrative Radiology Service Progress Note PATIENT NAME: Kendy Alba DATE OF SERVICE: February 02, 2025 TIME: 10:03 AM PATIENT IDENTITY VERIFICATION COMPLETED USING TWO (2) IDENTIFIERS: Name and Date of confirmed by patient verbally. FALL SCREENING: Has the patient had 2 falls in the last year or 1 fall with injury or currently using an Ambulatory Assistive Device (Walker, Cane, Wheelchair, Crutches, etc.)? No PATIENT GENDER DATA: Assigned female at . status: : No status: NO. PATIENT RELEVANT IMPLANT DATA REVIEWED: Not Applicable PATIENT PRESENTS WITH AN IMPLANTABLE OR ATTACHED REVIEW MANAGER: No RADIOLOGY DEPARTMENT: Mammography PERIPHERAL IV DATA: Not applicable SIGNED BY: RT Whit(Nabil) February 02, 2025 10:03 AM documented in this encounter [facility] 02-02-2025 Note HNO ID: [id number] Author: JESSICA AWAD RT(R) Service: ? Author Type: Technologist Type: Progress Notes Filed: 02/02/2025 10:03 Note Text: Radiology Service Progress Note PATIENT NAME: Kendy Alba DATE OF SERVICE: February 02, 2025 TIME: 10:03 AM PATIENT IDENTITY VERIFICATION COMPLETED USING TWO (2) IDENTIFIERS: Name and Date of confirmed by patient verbally. FALL SCREENING: Has the patient had 2 falls in the last year or 1 fall with injury or currently using an Ambulatory Assistive Device (Walker, Cane, Wheelchair, Crutches, etc.)? No PATIENT GENDER DATA: Assigned female at . status: : No status: NO. PATIENT RELEVANT IMPLANT DATA REVIEWED: Not Applicable PATIENT PRESENTS WITH AN IMPLANTABLE OR ATTACHED REVIEW MANAGER: No RADIOLOGY DEPARTMENT: Mammography PERIPHERAL IV DATA: Not applicable SIGNED BY: RT Whit(R) February 02, 2025 10:03 AM [facility] 02-02-2025 Note Patient Outreach (ASTRID BLUE) KENDY ALBA ([id number]) 1955 F Date Time Provider Department 02/02/25 MADONNA RIGGS During your visit today, we recorded the following information about you: Madonna Riggs MA 02/02/2025 10:01 AM Signed POPULATION HEALTH NAVIGATION OUTREACH Action/FYI Contacted patient to schedule HCC care gaps and health maintenance. 1st attempt: Left message with my direct number 2nd attempt: My Chart message sent Topic Due (Y or N) Comments Annual Wellness Exam Yes PCP Follow up No Colorectal Cancer Screening Yes A1C No HTN/Controlling BP No HCC Yes Updated appointment notes No Reason for Outreach Care Gap/HCC or Scheduling Wellness Visits Care Gaps due: Medicare Annual Wellness Visit Colorectal Cancer Screening Patient Contacted: Unable or unnecessary to reach patient: Left message MyChart message sent HCC related Navigation Signature: Madonna Riggs MA February 02, 2025 10:01 AM Allergies As of Date: 02/02/2025 Noted Allergy Reaction AMOXICILLIN 03/05/2005 4 - Hives KEFLEX (CEPHALEXIN) 03/05/2005 4 - Hives MINOCYCLINE 05/25/2014 4 - Hives SULFA (SULFONAMIDE ANTIBIOTICS) 03/05/2005 4 - Hives Date Reviewed: 01/21/2025 Reviewed by: Shana Nolasco MA - Fully Assessed Reason for Visit: Population Health Navigation Outreach [3910] Cmt: Craig/Workbench/ACO Prescriptions as of 02/02/2025 - fluocinonide (LIDEX) 0.05 % cream Apply 1 application to affected area two times a day for 14 days. - metroNIDAZOLE (METROCREAM) 0.75 % cream Apply to affected area two times a day. - losartan (COZAAR) 25 mg tablet Take 1 tablet by mouth once daily. - hydroCHLOROthiazide 25 mg tablet Take 1 tablet by mouth daily with breakfast. - levothyroxine (LEVOXYL) 112 mcg tablet Take 1 tablet by mouth once daily. Take on empty stomach. For thyroid. - montelukast (SINGULAIR) 10 mg tablet Take 1 tablet by mouth daily at bedtime. - albuterol HFA (PROVENTIL HFA, VENTOLIN HFA) 90 mcg/actuation inhaler Inhale 2 Puffs as instructed every 4 hours as needed for wheezing/shortness of breath. - budesonide (PULMICORT FLEXHALER) 180 mcg/actuation aepb Inhale 1 Puff as instructed two times a day. One puff twice daily. Problem List As Of Date 02/02/2025 Noted Resolved Hypothyroidism [E03.9] Asthma [J45.909] FAMILY HX BREAST MALIG [Z80.3] 10/02/2006 Essential Hypertension, Benign [I10] 12/12/2009 Psoriasis [L40.9] 12/19/2011 Breast CA (HCC) [C50.919] 05/25/2014 01/21/2025 Acquired hypothyroidism [E03.9] 04/04/2015 Invasive ductal carcinoma of left breast in fem*03/25/2017 01/21/2025 Obesity, Class III, BMI 40-49.9 (morbid obesity*09/18/2017 01/21/2025 Encounter Status:Closed by MADONNA RIGGS on 02/02/25 [facility] 01-21-2025 History of Present illness Narrative Chief Complaint Patient presents with: Follow Up HPI Kendy Alba is a 69 year old female who presents here today for medication follow up. Has an advanced directive. Declined colon cancer screening tests and Hep C screening. No bowel, Gi, or urinary issues. Thyroid: Taking Levoxyl 112 mcg daily. No missed dosages. HTN: Taking Losartan 25 mg daily and HCTZ 25 mg daily. No chest pains, dizziness, or Shortness of Breath. Checks BP occ at home, yesterday reading was 120/77 and HR 63. Asthma: Stable, uses Albuterol inhaler as needed, Pulmicort inhaler 1 puff BID and Singulair 10 mg daily. Kendy reports erythema on her face, which she suspects is rosacea. The erythema is chronic but varies in intensity, worsening with sun exposure. She also has a history of psoriasis, for which she uses a steroid cream. Kendy inquires about treatment options for her facial erythema. Past medical history, appointments, medications, allergies reviewed. Previous Medical History PAST MEDICAL HISTORY Diagnosis Date Essential hypertension, benign Family history of breast cancer Malignant neoplasm of breast (female), unspecified site left breast ca Psoriasis Unspecified asthma(493.90) Unspecified hypothyroidism Previous Surgical History PAST SURGICAL HISTORY Procedure Laterality Date BX OF BREAST; INCISIONAL Right 01/29/2024 PAST SURGICAL HISTORY OF 07/01/2014 left breast lumpectomy REMV CATARACT EXTRACAP,INSERT LENS 12/2022 [facility] REMV CATARACT EXTRACAP,INSERT LENS 02/27/2023 [facility] Family History FAMILY HISTORY Problem Relation Age of Onset Coronary Artery Disease Mother other (DVT/PE) Daughter Patient Allergies ALLERGIES Allergen Reactions Amoxicillin Hives Keflex [Cephalexin] Hives Minocycline Hives Sulfa (Sulfonamide * Hives Current Medications Current Outpatient Medications on File Prior to Visit Medication Sig losartan (COZAAR) 25 mg tablet Take 1 tablet by mouth once daily. hydroCHLOROthiazide 25 mg tablet Take 1 tablet by mouth daily with breakfast. levothyroxine (LEVOXYL) 112 mcg tablet Take 1 tablet by mouth once daily. Take on empty stomach. For thyroid. montelukast (SINGULAIR) 10 mg tablet Take 1 tablet by mouth daily at bedtime. albuterol HFA (PROVENTIL HFA, VENTOLIN HFA) 90 mcg/actuation inhaler Inhale 2 Puffs as instructed every 4 hours as needed for wheezing/shortness of breath. budesonide (PULMICORT FLEXHALER) 180 mcg/actuation aepb Inhale 1 Puff as instructed two times a day. One puff twice daily. No current facility-administered medications on file prior to visit. Social History Social History Tobacco Use Smoking status: Former Current packs/day: 0.00 Average packs/day: 1 pack/day for 15.0 years (15.0 ttl pk-yrs) Types: Cigarettes Start date: 06/24/1983 Quit date: 06/24/1998 Years since quittin.5 Smokeless tobacco: Never Vaping Use Vaping status: Never Used Substance Use Topics Alcohol use: No Drug use: No EXAM: BP 128/76 Pulse 66 Resp 16 Wt 82.2 kg (181 lb 3.5 oz) LMP 06/25/2005 BMI 38.54 kg/m General Appearance: Well appearing, alert, in no acute distress, well-hydrated, well nourished.. Skin: erythema of cheeks and forehead, some scaling of eyebrows with her psoriasis. Lungs: Lungs clear to auscultation. No wheezing, rhonchi, rales.. Heart: RRR without murmur, gallop, or rubs. No ectopy. Health Maintenance List Depression Screening Never done Anxiety Screening Never done Shingrix Vaccine(1 of 2) Never done RSV Vaccine(1 - Risk 60-74 years 1-dose series) Never done DTaP,Tdap,Td Vaccine(2 - Td or Tdap) due on 10/02/2016 Medicare Annual Wellness Visit Never done Mammogram Screening due on 04/16/2024 Advance Directive Discussion due on 06/24/2024 Colorectal Cancer Screening due on 01/28/2025 Hepatitis C Screening due on 01/21/2026 Annual PCP Team Chronic Disease Visit due on 02/16/2025 Influenza Vaccine(1) due on 02/22/2025 Diabetes Screening due on 01/08/2028 Lipid Screening due on 01/07/2030 Bone Density Screening Completed Pneumococcal Vaccine: 50+ Completed Cervical Cancer Screening Discontinued Data reviewed Appointment on 01/07/2025 Component Date Value Cholesterol, Total 01/07/2025 144 Triglyceride 01/07/2025 56 HDL Cholesterol 01/07/2025 49 LDL Cholesterol, Calcula* 01/07/2025 83 Non HDL Cholesterol 01/07/2025 95 VLDL Cholesterol 01/07/2025 9 TC:HDL Ratio 01/07/2025 2.94 LDL:HDL Ratio 01/07/2025 1.69 Fasting Time 01/07/2025 12 Protein, Total 01/07/2025 7.7 Albumin 01/07/2025 4.1 Calcium, Total 01/07/2025 9.3 Bilirubin, Total 01/07/2025 0.7 Alkaline Phosphatase 01/07/2025 86 AST 01/07/2025 12 (L) ALT 01/07/2025 11 Glucose 01/07/2025 97 BUN 01/07/2025 12 Creatinine 01/07/2025 0.77 Sodium 01/07/2025 134 (L) Potassium 01/07/2025 3.9 Chloride 01/07/2025 96 (L) CO2 01/07/2025 26 Anion Gap 01/07/2025 12 Estimated Glomerular Jake* 01/07/2025 84 WBC 01/07/2025 6.25 RBC 01/07/2025 5.12 Hemoglobin 01/07/2025 14.8 Hematocrit 01/07/2025 43.0 MCV 01/07/2025 84.0 MCH 01/07/2025 28.9 MCHC 01/07/2025 34.4 RDW-CV 01/07/2025 14.0 Platelet Count 01/07/2025 183 MPV 01/07/2025 9.2 Neutrophils % 01/07/2025 67.7 Abs Neut 01/07/2025 4.23 Lymphocytes % 01/07/2025 20.5 Abs Lymph 01/07/2025 1.28 Monocytes % 01/07/2025 8.3 Abs Burt 01/07/2025 0.52 Eosinophils % 01/07/2025 2.4 Abs Eosin 01/07/2025 0.15 Basophils % 01/07/2025 0.8 Abs Baso 01/07/2025 0.05 Immature Granulocytes % 01/07/2025 0.3 Abs Immature Gran 01/07/2025 <0.03 NRBC 01/07/2025 0.0 Absolute nRBC 01/07/2025 <0.01 Diff Type 01/07/2025 Auto TSH 01/07/2025 1.240 Recording using inexio software for draft documentation of the visit was discussed with the 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 Patient/authorized welding equipment sales representative agreed to proceed 1. Essential hypertension, benign (I10) Blood pressure is well-controlled on current regimen of Losartan 25 mg and Hydrochlorothiazide 25 mg daily. - Continue current antihypertensive medications. 2. Psoriasis (L40.9) Psoriatic lesions noted on hairline, elbows, and eyebrows. - Continue current topical steroid cream application to affected areas. 3. Screening for depression (Z13.31) 4. Encounter for screening examination for other mental health and behavioral disorders (Z13.39) 5. Encounter for screening mammogram for malignant neoplasm of breast (Z12.31) Patient has a history of dense breast tissue and previous diagnostic mammograms, most recently in July. - Ordered screening mammogram. 6. Acquired hypothyroidism (E03.9) TSH level is 1.24 mIU/L, indicating stable thyroid function on current Levothyroxine 112 mcg daily. - Continue Levothyroxine 112 mcg daily. 7. Moderate persistent asthma without complication (HCC) (J45.40) Asthma is well-controlled on current regimen of Pulmicort inhaler and Singulair 10 mg daily at bedtime. - Continue Pulmicort inhaler and Singulair 10 mg daily. 8. Rosacea (L71.9) Erythema present on cheeks and forehead. - Prescribed Metronidazole cream to be applied twice daily; can be used daily or during flare-ups. Follow up in 1 year I agree with the Chief Complaint, ROS, and Past Histories independently gathered by the clinical decision support analyst and the remaining scribed note accurately describes my personal service to the patient. Medical Decision Making: Problems: Moderate: 2+ stable chronic illnesses Data: Unique test result(s) reviewed: 3+ Risk: Moderate: Drug management Medical Decision Making Level: 4 - Moderate Juanita Emmanuel MD The documentation for this note was completed by Shana Nolasco MA acting as scribe for Juanita Emmanuel MD. January 21, 2025 9:23 AM. Shana Nolasco MA documented in this encounter [facility] 01-21-2025 Note HNO ID: [id number] Author: JUANITA EMMANUEL MD Service: ? Author Type: Physician Type: Progress Notes Filed: 01/21/2025 09:59 Note Text: Chief Complaint Patient presents with: Follow Up HPI Kendy Alba is a 69 year old female who presents here today for medication follow up. Has an advanced directive. Declined colon cancer screening tests and Hep C screening. No bowel, Gi, or urinary issues. Thyroid: Taking Levoxyl 112 mcg daily. No missed dosages. HTN: Taking Losartan 25 mg daily and HCTZ 25 mg daily. No chest pains, dizziness, or Shortness of Breath. Checks BP occ at home, yesterday reading was 120/77 and HR 63. Asthma: Stable, uses Albuterol inhaler as needed, Pulmicort inhaler 1 puff BID and Singulair 10 mg daily. Kendy reports erythema on her face, which she suspects is rosacea. The erythema is chronic but varies in intensity, worsening with sun exposure. She also has a history of psoriasis, for which she uses a steroid cream. Kendy inquires about treatment options for her facial erythema. Past medical history, appointments, medications, allergies reviewed. Previous Medical History PAST MEDICAL HISTORY Diagnosis Date Essential hypertension, benign Family history of breast cancer Malignant neoplasm of breast (female), unspecified site left breast ca Psoriasis Unspecified asthma(493.90) Unspecified hypothyroidism Previous Surgical History PAST SURGICAL HISTORY Procedure Laterality Date BX OF BREAST; INCISIONAL Right 01/29/2024 PAST SURGICAL HISTORY OF 07/01/2014 left breast lumpectomy REMV CATARACT EXTRACAP,INSERT LENS 12/2022 [facility] REMV CATARACT EXTRACAP,INSERT LENS 02/27/2023 [facility] Family History FAMILY HISTORY Problem Relation Age of Onset Coronary Artery Disease Mother other (DVT/PE) Daughter Patient Allergies ALLERGIES Allergen Reactions Amoxicillin Hives Keflex [Cephalexin] Hives Minocycline Hives Sulfa (Sulfonamide * Hives Current Medications Current Outpatient Medications on File Prior to Visit Medication Sig losartan (COZAAR) 25 mg tablet Take 1 tablet by mouth once daily. hydroCHLOROthiazide 25 mg tablet Take 1 tablet by mouth daily with breakfast. levothyroxine (LEVOXYL) 112 mcg tablet Take 1 tablet by mouth once daily. Take on empty stomach. For thyroid. montelukast (SINGULAIR) 10 mg tablet Take 1 tablet by mouth daily at bedtime. albuterol HFA (PROVENTIL HFA, VENTOLIN HFA) 90 mcg/actuation inhaler Inhale 2 Puffs as instructed every 4 hours as needed for wheezing/shortness of breath. budesonide (PULMICORT FLEXHALER) 180 mcg/actuation aepb Inhale 1 Puff as instructed two times a day. One puff twice daily. No current facility-administered medications on file prior to visit. Social History Social History Tobacco Use Smoking status: Former Current packs/day: 0.00 Average packs/day: 1 pack/day for 15.0 years (15.0 ttl pk-yrs) Types: Cigarettes Start date: 06/24/1983 Quit date: 06/24/1998 Years since quittin.5 Smokeless tobacco: Never Vaping Use Vaping status: Never Used Substance Use Topics Alcohol use: No Drug use: No EXAM: BP 128/76 Pulse 66 Resp 16 Wt 82.2 kg (181 lb 3.5 oz) LMP 06/25/2005 BMI 38.54 kg/m? General Appearance: Well appearing, alert, in no acute distress, well-hydrated, well nourished.. Skin: erythema of cheeks and forehead, some scaling of eyebrows with her psoriasis. Lungs: Lungs clear to auscultation. No wheezing, rhonchi, rales.. Heart: RRR without murmur, gallop, or rubs. No ectopy. Health Maintenance List Depression Screening Never done Anxiety Screening Never done Shingrix Vaccine(1 of 2) Never done RSV Vaccine(1 - Risk 60-74 years 1-dose series) Never done DTaP,Tdap,Td Vaccine(2 - Td or Tdap) due on 10/02/2016 Medicare Annual Wellness Visit Never done Mammogram Screening due on 04/16/2024 Advance Directive Discussion due on 06/24/2024 Colorectal Cancer Screening due on 01/28/2025 Hepatitis C Screening due on 01/21/2026 Annual PCP Team Chronic Disease Visit due on 02/16/2025 Influenza Vaccine(1) due on 02/22/2025 Diabetes Screening due on 01/08/2028 Lipid Screening due on 01/07/2030 Bone Density Screening Completed Pneumococcal Vaccine: 50+ Completed Cervical Cancer Screening Discontinued Data reviewed Appointment on 01/07/2025 Component Date Value Cholesterol, Total 01/07/2025 144 Triglyceride 01/07/2025 56 HDL Cholesterol 01/07/2025 49 LDL Cholesterol, Calcula* 01/07/2025 83 Non HDL Cholesterol 01/07/2025 95 VLDL Cholesterol 01/07/2025 9 TC:HDL Ratio 01/07/2025 2.94 LDL:HDL Ratio 01/07/2025 1.69 Fasting Time 01/07/2025 12 Protein, Total 01/07/2025 7.7 Albumin 01/07/2025 4.1 Calcium, Total 01/07/2025 9.3 Bilirubin, Total 01/07/2025 0.7 Alkaline Phosphatase 01/07/2025 86 AST 01/07/2025 12 (L) ALT 01/07/2025 11 Glucose 01/07/2025 97 BUN 01/07/2025 12 Creatinine 01/08/20 (more content not included)... [facility] 10-27-2024 Note HNO ID: [id number] Author: MADONNA RIGGS MA Service: ? Author Type: Cnc Machine Programmer Type: Progress Notes Filed: 10/27/2024 10:30 Note Text: POPULATION HEALTH NAVIGATION OUTREACH Action/FYI Contacted patient to schedule HCC care gaps and health maintenance. 1st attempt: Left message with my direct number 2nd attempt: My Chart message sent Topic Due (Y or N) Comments Annual Wellness Exam Yes PCP Follow up No Colorectal Cancer Screening Yes A1C No HTN/Controlling BP Yes HCC Yes Updated appointment notes No Reason for Outreach Care Gap/HCC or Scheduling Wellness Visits Care Gaps due: Medicare Annual Wellness Visit Controlling Blood Pressure Colorectal Cancer Screening Patient Contacted: Unable or unnecessary to reach patient: Left message Panjohart message sent HCC related Navigation Signature: Madonna Riggs MA October 27, 2024 10:29 AM [facility] 10-27-2024 History of Present illness Narrative POPULATION HEALTH NAVIGATION OUTREACH Action/FYI Contacted patient to schedule HCC care gaps and health maintenance. 1st attempt: Left message with my direct number 2nd attempt: My Chart message sent Topic Due (Y or N) Comments Annual Wellness Exam Yes PCP Follow up No Colorectal Cancer Screening Yes A1C No HTN/Controlling BP Yes HCC Yes Updated appointment notes No Reason for Outreach Care Gap/HCC or Scheduling Wellness Visits Care Gaps due: Medicare Annual Wellness Visit Controlling Blood Pressure Colorectal Cancer Screening Patient Contacted: Unable or unnecessary to reach patient: Left message Panjohart message sent HCC related Navigation Signature: Madonna Riggs MA October 27, 2024 10:29 AM documented in this encounter [facility] 10-27-2024 Note Patient Outreach (NE TNAV) KENDY ALBA ([id number]) 1955 F Date Time Provider Department 10/27/24 MADONNA RIGGS During your visit today, we recorded the following information about you: Madonna Riggs MA 10/27/2024 10:30 AM Signed POPULATION HEALTH NAVIGATION OUTREACH Action/FYI Contacted patient to schedule HCC care gaps and health maintenance. 1st attempt: Left message with my direct number 2nd attempt: My Chart message sent Topic Due (Y or N) Comments Annual Wellness Exam Yes PCP Follow up No Colorectal Cancer Screening Yes A1C No HTN/Controlling BP Yes HCC Yes Updated appointment notes No Reason for Outreach Care Gap/HCC or Scheduling Wellness Visits Care Gaps due: Medicare Annual Wellness Visit Controlling Blood Pressure Colorectal Cancer Screening Patient Contacted: Unable or unnecessary to reach patient: Left message MyChart message sent HCC related Navigation Signature: Madonna Riggs MA October 27, 2024 10:29 AM Allergies As of Date: 10/27/2024 Noted Allergy Reaction AMOXICILLIN 03/05/2005 4 - Hives KEFLEX (CEPHALEXIN) 03/05/2005 4 - Hives MINOCYCLINE 05/25/2014 4 - Hives SULFA (SULFONAMIDE ANTIBIOTICS) 03/05/2005 4 - Hives Date Reviewed: 02/10/2024 Reviewed by: Galina Roche RN - Fully Assessed Reason for Visit: Population Health Navigation Outreach [3910] Cmt: Craig/Workbench/ACO Prescriptions as of 10/27/2024 - losartan (COZAAR) 25 mg tablet Take 1 tablet by mouth once daily. - hydroCHLOROthiazide 25 mg tablet Take 1 tablet by mouth daily with breakfast. - levothyroxine (LEVOXYL) 112 mcg tablet Take 1 tablet by mouth once daily. Take on empty stomach. For thyroid. - montelukast (SINGULAIR) 10 mg tablet Take 1 tablet by mouth daily at bedtime. - albuterol HFA (PROVENTIL HFA, VENTOLIN HFA) 90 mcg/actuation inhaler Inhale 2 Puffs as instructed every 4 hours as needed for wheezing/shortness of breath. - budesonide (PULMICORT FLEXHALER) 180 mcg/actuation aepb Inhale 1 Puff as instructed two times a day. One puff twice daily. Problem List As Of Date 10/27/2024 Noted Resolved Hypothyroidism [E03.9] Asthma [J45.909] FAMILY HX BREAST MALIG [Z80.3] 10/02/2006 Essential Hypertension, Benign [I10] 12/12/2009 Psoriasis [L40.9] 12/19/2011 Breast CA (HCC) [C50.919] 05/25/2014 Acquired hypothyroidism [E03.9] 04/04/2015 Invasive ductal carcinoma of left breast in fem*03/25/2017 Obesity, Class III, BMI 40-49.9 (morbid obesity*09/18/2017 Encounter Status:Closed by MADONNA RIGGS on 10/27/24 [facility] 08-12-2024 History of Present illness Narrative Radiology Service Progress Note PATIENT NAME: Kendy Alba DATE OF SERVICE: August 12, 2024 TIME: 9:13 AM PATIENT IDENTITY VERIFICATION COMPLETED USING TWO (2) IDENTIFIERS: Name and Date of confirmed by patient verbally. FALL SCREENING: Has the patient had 2 falls in the last year or 1 fall with injury or currently using an Ambulatory Assistive Device (Walker, Cane, Wheelchair, Crutches, etc.)? No PATIENT GENDER DATA: Assigned female at . status: : No status: NO. PATIENT RELEVANT IMPLANT DATA REVIEWED: Not Applicable PATIENT PRESENTS WITH AN IMPLANTABLE OR ATTACHED REVIEW MANAGER: No RADIOLOGY DEPARTMENT: Mammography PERIPHERAL IV DATA: Not applicable SIGNED BY: RT Whit(Nabil) August 12, 2024 9:13 AM documented in this encounter [facility] 08-12-2024 Note HNO ID: [id number] Author: JESSICA AWAD RT(R) Service: ? Author Type: Technologist Type: Progress Notes Filed: 08/12/2024 09:13 Note Text: Radiology Service Progress Note PATIENT NAME: Kendy Alba DATE OF SERVICE: August 12, 2024 TIME: 9:13 AM PATIENT IDENTITY VERIFICATION COMPLETED USING TWO (2) IDENTIFIERS: Name and Date of confirmed by patient verbally. FALL SCREENING: Has the patient had 2 falls in the last year or 1 fall with injury or currently using an Ambulatory Assistive Device (Walker, Cane, Wheelchair, Crutches, etc.)? No PATIENT GENDER DATA: Assigned female at . status: : No status: NO. PATIENT RELEVANT IMPLANT DATA REVIEWED: Not Applicable PATIENT PRESENTS WITH AN IMPLANTABLE OR ATTACHED REVIEW MANAGER: No RADIOLOGY DEPARTMENT: Mammography PERIPHERAL IV DATA: Not applicable SIGNED BY: ANISH Sherman) August 12, 2024 9:13 AM [facility] 03-17-2024 Telephone encounter Note Prescription Refill Information The patient has been identified by name and date of : Yes Caregiver verified no other encounters exist for this prescription request: Yes Caregiver confirmed with patient/requestor that no other refills are due, in the near future, with this provider at this time: Yes The last office visit in the department: 02/17/24 Does the patient have a future office visit with this provider/department: No Requested Prescriptions Pending Prescriptions Disp Refills hydroCHLOROthiazide 25 mg tablet 90 tablet 3 Sig: Take 1 tablet by mouth daily with breakfast. levothyroxine (LEVOXYL) 112 mcg tablet 90 tablet 3 Sig: Take 1 tablet by mouth once daily. Take on empty stomach. For thyroid. Wilber Appiah LPN March 17, 2024 8:39 AM [facility] 03-17-2024 Miscellaneous Notes Prescription Refill Information The patient has been identified by name and date of : Yes Caregiver verified no other encounters exist for this prescription request: Yes Caregiver confirmed with patient/requestor that no other refills are due, in the near future, with this provider at this time: Yes The last office visit in the department: 02/17/24 Does the patient have a future office visit with this provider/department: No Requested Prescriptions Pending Prescriptions Disp Refills hydroCHLOROthiazide 25 mg tablet 90 tablet 3 Sig: Take 1 tablet by mouth daily with breakfast. levothyroxine (LEVOXYL) 112 mcg tablet 90 tablet 3 Sig: Take 1 tablet by mouth once daily. Take on empty stomach. For thyroid. Wilber Appiah LPN March 17, 2024 8:39 AM documented in this encounter [facility] 03-17-2024 Telephone encounter Note Prescription Refill Information The patient has been identified by name and date of : Yes Caregiver verified no other encounters exist for this prescription request: Yes Caregiver confirmed with patient/requestor that no other refills are due, in the near future, with this provider at this time: Yes The last office visit in the department: 02/17/24 Does the patient have a future office visit with this provider/department: No Requested Prescriptions Pending Prescriptions Disp Refills losartan (COZAAR) 25 mg tablet 90 tablet 3 Sig: Take 1 tablet by mouth once daily. Wilber Appiah LPN March 17, 2024 8:39 AM [facility] 03-17-2024 Miscellaneous Notes Prescription Refill Information The patient has been identified by name and date of : Yes Caregiver verified no other encounters exist for this prescription request: Yes Caregiver confirmed with patient/requestor that no other refills are due, in the near future, with this provider at this time: Yes The last office visit in the department: 02/17/24 Does the patient have a future office visit with this provider/department: No Requested Prescriptions Pending Prescriptions Disp Refills losartan (COZAAR) 25 mg tablet 90 tablet 3 Sig: Take 1 tablet by mouth once daily. Wilber Appiah LPN March 17, 2024 8:39 AM documented in this encounter [facility] 02-17-2024 History of Present illness Narrative Chief Complaint Patient presents with: Covid Positive HPI:This Team Access Model visit is a virtual encounter. It required patient-provider interaction for the medical decision making as documented below. Patient was offered a virtual/telemedicine appointment in lieu of an office visit due to recommendations to reduce patient exposure to COVID-19. Patient is aware of limitations of performing the visit without a face to face visit in the office setting and agrees. I have communicated my name and active licensure. The patient's identity and physical location were verified at the time of this visit. Either the patient or their legal welding equipment sales representative has been informed of the risks and benefits of -- and alternatives to -- treatment through a remote evaluation and consents to proceed with the evaluation remotely. Telephone visit due to technical issues preventing virtual visit Pt completing a telephone visit today due to a + home covid test, which she has sent in. Pt reports symptoms started on Saturday with sneezing and nasal congestion. On Saturday when she woke up she felt worse then the previous day. She had at home Covid tests and she completed one, which was positive. Pt's daughter is Nurse and tested her. Pt continues to have no appetite, coughing, sneezing, sinus congestion and throat slightly scratchy. Wants anti-viral medication and instructions on what she needs to do for Covid. Pt uses [facility]. Past medical history, appointments, medications, allergies reviewed. Previous Medical History PAST MEDICAL HISTORY No date: Essential hypertension, benign No date: Family history of breast cancer No date: Malignant neoplasm of breast (female), unspecified site Comment: left breast ca No date: Psoriasis No date: Unspecified asthma(493.90) No date: Unspecified hypothyroidism Previous Surgical History PAST SURGICAL HISTORY 01/29/2024: BX OF BREAST; INCISIONAL; Right 07/01/2014: PAST SURGICAL HISTORY OF Comment: left breast lumpectomy 12/2022: REMV CATARACT EXTRACAP,INSERT LENS Comment: [facility] 02/27/2023: REMV CATARACT EXTRACAP,INSERT LENS Comment: [facility] Family History FAMILY HISTORY Problem Relation Age of Onset Coronary Artery Disease Mother Breast Cancer Sister other (DVT/PE) Daughter Patient Allergies ALLERGIES Allergen Reactions Amoxicillin Hives Keflex [Cephalexin] Hives Minocycline Hives Sulfa (Sulfonamide * Hives Current Medications Current Outpatient Medications on File Prior to Visit Medication Sig montelukast (SINGULAIR) 10 mg tablet Take 1 tablet by mouth daily at bedtime. albuterol HFA (PROVENTIL HFA, VENTOLIN HFA) 90 mcg/actuation inhaler Inhale 2 Puffs as instructed every 4 hours as needed for wheezing/shortness of breath. budesonide (PULMICORT FLEXHALER) 180 mcg/actuation aepb Inhale 1 Puff as instructed two times a day. One puff twice daily. losartan (COZAAR) 25 mg tablet Take 1 tablet by mouth once daily. levothyroxine (LEVOXYL) 112 mcg tablet Take 1 tablet by mouth once daily. Take on empty stomach. For thyroid. hydroCHLOROthiazide 25 mg tablet Take 1 tablet by mouth daily with breakfast. No current facility-administered medications on file prior to visit. Social History Social History Tobacco Use Smoking status: Former Current packs/day: 0.00 Average packs/day: 1 pack/day for 15.0 years (15.0 ttl pk-yrs) Types: Cigarettes Start date: 06/24/1983 Quit date: 06/24/1998 Years since quittin.6 Smokeless tobacco: Never Vaping Use Vaping status: Never Used Substance Use Topics Alcohol use: No Drug use: No EXAM: [facility] 06/25/2005 Phone exam: NAD Health Maintenance List Spirometry Never done Depression Screening Never done Anxiety Screening Never done BP Controlled (<130/80) Never done Shingrix Vaccine(1 of 2) Never done RSV Vaccine(1 - 1-dose 60+ series) Never done DTaP,Tdap,Td Vaccine(2 - Td or Tdap) due on 10/02/2016 Advance Directive Discussion due on 06/24/2023 Covid-19 Vaccine( season) due on 07/23/2023 Mammogram Screening due on 04/16/2024 Colorectal Cancer Screening due on 05/21/2024 Hepatitis C Screening due on 05/21/2024 Influenza Vaccine(1) due on 02/23/2024 Annual PCP Team Chronic Disease Visit due on 01/14/2025 Diabetes Screening due on 05/17/2026 Lipid Screening due on 05/17/2028 Bone Density Screening Completed Pneumococcal Vaccine: 65+ Completed HPV Vaccine Aged Out Cervical Cancer Screening Discontinued Data reviewed Epic ASSESSMENT/PLAN: 1. COVID - ICD9: 079.89, ICD10: U07.1 Symptomatic treatment; with Paxlovid - NIRMATRELVIR 300 MG (150 MG X2)-RITONAVIR 100 MG TABLET,DOSE PACK Follow up prn 11-20 minutes of time spent on phone call Juanita Emmanuel MD documented in this encounter [facility] 02-17-2024 Note HNO ID: [id number] Author: JUANITA EMMANUEL MD Service: ? Author Type: Physician Type: Progress Notes Filed: 02/17/2024 14:39 Note Text: Chief Complaint Patient presents with: Covid Positive HPI:This Team Access Model visit is a virtual encounter. It required patient-provider interaction for the medical decision making as documented below. Patient was offered a virtual/telemedicine appointment in lieu of an office visit due to recommendations to reduce patient exposure to COVID-19. Patient is aware of limitations of performing the visit without a face to face visit in the office setting and agrees. I have communicated my name and active licensure. The patient's identity and physical location were verified at the time of this visit. Either the patient or their legal welding equipment sales representative has been informed of the risks and benefits of -- and alternatives to -- treatment through a remote evaluation and consents to proceed with the evaluation remotely. Telephone visit due to technical issues preventing virtual visit Pt completing a telephone visit today due to a + home covid test, which she has sent in. Pt reports symptoms started on Saturday with sneezing and nasal congestion. On Saturday when she woke up she felt worse then the previous day. She had at home Covid tests and she completed one, which was positive. Pt's daughter is Nurse and tested her. Pt continues to have no appetite, coughing, sneezing, sinus congestion and throat slightly scratchy. Wants anti-viral medication and instructions on what she needs to do for Covid. Pt uses [facility]. Past medical history, appointments, medications, allergies reviewed. Previous Medical History PAST MEDICAL HISTORY No date: Essential hypertension, benign No date: Family history of breast cancer No date: Malignant neoplasm of breast (female), unspecified site Comment: left breast ca No date: Psoriasis No date: Unspecified asthma(493.90) No date: Unspecified hypothyroidism Previous Surgical History PAST SURGICAL HISTORY 01/29/2024: BX OF BREAST; INCISIONAL; Right 07/01/2014: PAST SURGICAL HISTORY OF Comment: left breast lumpectomy 12/2022: REMV CATARACT EXTRACAP,INSERT LENS Comment: [facility] 02/27/2023: REMV CATARACT EXTRACAP,INSERT LENS Comment: [facility] Family History FAMILY HISTORY Problem Relation Age of Onset Coronary Artery Disease Mother Breast Cancer Sister other (DVT/PE) Daughter Patient Allergies ALLERGIES Allergen Reactions Amoxicillin Hives Keflex [Cephalexin] Hives Minocycline Hives Sulfa (Sulfonamide * Hives Current Medications Current Outpatient Medications on File Prior to Visit Medication Sig montelukast (SINGULAIR) 10 mg tablet Take 1 tablet by mouth daily at bedtime. albuterol HFA (PROVENTIL HFA, VENTOLIN HFA) 90 mcg/actuation inhaler Inhale 2 Puffs as instructed every 4 hours as needed for wheezing/shortness of breath. budesonide (PULMICORT FLEXHALER) 180 mcg/actuation aepb Inhale 1 Puff as instructed two times a day. One puff twice daily. losartan (COZAAR) 25 mg tablet Take 1 tablet by mouth once daily. levothyroxine (LEVOXYL) 112 mcg tablet Take 1 tablet by mouth once daily. Take on empty stomach. For thyroid. hydroCHLOROthiazide 25 mg tablet Take 1 tablet by mouth daily with breakfast. No current facility-administered medications on file prior to visit. Social History Social History Tobacco Use Smoking status: Former Current packs/day: 0.00 Average packs/day: 1 pack/day for 15.0 years (15.0 ttl pk-yrs) Types: Cigarettes Start date: 06/24/1983 Quit date: 06/24/1998 Years since quittin.6 Smokeless tobacco: Never Vaping Use Vaping status: Never Used Substance Use Topics Alcohol use: No Drug use: No EXAM: [facility] 06/25/2005 Phone exam: NAD Health Maintenance List Spirometry Never done Depression Screening Never done Anxiety Screening Never done BP Controlled (<130/80) Never done Shingrix Vaccine(1 of 2) Never done RSV Vaccine(1 - 1-dose 60+ series) Never done DTaP,Tdap,Td Vaccine(2 - Td or Tdap) due on 10/02/2016 Advance Directive Discussion due on 06/24/2023 Covid-19 Vaccine( season) due on 07/23/2023 Mammogram Screening due on 04/16/2024 Colorectal Cancer Screening due on 05/21/2024 Hepatitis C Screening due on 05/21/2024 Influenza Vaccine(1) due on 02/23/2024 Annual PCP Team Chronic Disease Visit due on 01/14/2025 Diabetes Screening due on 05/17/2026 Lipid Screening due on 05/17/2028 Bone Density Screening Completed Pneumococcal Vaccine: 65+ Completed HPV Vaccine Aged Out Cervical Cancer Screening Discontinued Data reviewed Epic ASSESSMENT/PLAN: 1. COVID - ICD9: 079.89, ICD10: U07.1 Symptomatic treatment; with Paxlovid - NIRMATRELVIR 300 MG (150 MG X2)-RITONAVIR 100 MG TABLET,DOSE PACK Follow up prn 11-20 minutes of time spent on phone call Juanita Emmanuel MD [facility] 02-17-2024 Telephone encounter Note Call to pt and discussed VV. Did give instructions, pt will attempt this and upload her + Covid test. Pt scheduled with PCP today at 2:20 pm. Mar Ahmadi MA [facility] 02-17-2024 Miscellaneous Notes Call to pt and discussed VV. Did give instructions, pt will attempt this and upload her + Covid test. Pt scheduled with PCP today at 2:20 pm. Mar Ahmadi MA Kendy is calling Juanita Emmanuel MD today with concern regarding patient tested positive Saturday02/15/2024 for Covid, patient daughter is a nurse and tested patient, patient has a picture of the positive test. Patient does not know how to do the video visit and not sure she understands. Patient has no appetite, coughing sneezing and sinus congestion. Throat was scratchy Patient has been identified by name and birthdate. Duration of symptoms: 3 days Person calling: self Call patient at: at home [phone] (home) [phone] (cell) Was an appointment scheduled: No Closing statement: Symptom Call: Thank you for calling [facility], your call is very important. A nurse will call in approximately 2-4 hours during business hours. If this is an emergency, please contact 911Nikita Yadav documented in this encounter [facility] 02-17-2024 Telephone encounter Note Kendy is calling Juanita Emmanuel MD today with concern regarding patient tested positive Saturday02/15/2024 for Covid, patient daughter is a nurse and tested patient, patient has a picture of the positive test. Patient does not know how to do the video visit and not sure she understands. Patient has no appetite, coughing sneezing and sinus congestion. Throat was scratchy Patient has been identified by name and birthdate. Duration of symptoms: 3 days Person calling: self Call patient at: at home [phone] (home) [phone] (cell) Was an appointment scheduled: No Closing statement: Symptom Call: Thank you for calling [facility], your call is very important. A nurse will call in approximately 2-4 hours during business hours. If this is an emergency, please contact Nancy Diaz Elisha Yadav [facility] 02-10-2024 Note HNO ID: [id number] Author: EZE LINN MD Service: ? Author Type: Physician Type: Progress Notes Filed: 02/10/2024 13:07 Note Text: Subjective: Patient is status post an ultrasound-guided right needle core biopsy on 01/29/2024. This biopsy result came back as a fibroadenoma. Patient has no complaints at this time. Objective:Last menstrual period 06/25/2005. Biopsy site is clean healing up well minimal bruising is identified. No signs of cellulitis. Assessment: Fibroadenoma right breast Plan: Patient will need to have a 6-month follow-up from the date of her last mammogram. This will be done on the right side. The order is in place. She can follow-up with me on an as-needed basis. [facility] 02-10-2024 History of Present illness Narrative Subjective: Patient is status post an ultrasound-guided right needle core biopsy on 01/29/2024. This biopsy result came back as a fibroadenoma. Patient has no complaints at this time. Objective:Last menstrual period 06/25/2005. Biopsy site is clean healing up well minimal bruising is identified. No signs of cellulitis. Assessment: Fibroadenoma right breast Plan: Patient will need to have a 6-month follow-up from the date of her last mammogram. This will be done on the right side. The order is in place. She can follow-up with me on an as-needed basis. documented in this encounter [facility] 01-31-2024 Telephone encounter Note Images from the original note were not included. Eze Linn MD [facility] Call patient and let her know that her biopsy results are benign. She will need us 6-month follow-up mammogram. My Chart message sent to patient. Luzma Moody RN [facility] 01-31-2024 Miscellaneous Notes Images from the original note were not included. Eze Linn MD [facility] Call patient and let her know that her biopsy results are benign. She will need us 6-month follow-up mammogram. My Chart message sent to patient. Luzma Moody RN documented in this encounter [facility] 01-29-2024 Note IMPRESSION: ULTRASOU ND GUIDED BIOPSY There were no immediate complications and the patient tolerated procedure well. Ultrasound guided biopsy of the mass in the right breast at 6 o'clock anterior depth with placement of a clip was successful with no apparent post procedure complications. Waiting for pathology results. A final report will be issued when these become available. Edu PEREIRA, [facility]/jaron:01/29/2024 11:19:33 Sales Support Administrator(s): Zenia Carmen RT(R)(M), [facility]; Jyoti Myers, [facility] Multiple national specialty organizations have released breast cancer screening guidelines for women at average risk for developing breast cancer - guidelines that are based on both evidence and opinion, yet differ on when to start and how often to screen for breast cancer. With representation from Breast Imaging, Internal Medicine, Women's Health, Family Medicine, and Medical/Surgical Oncology, the [facility] has carefully reviewed the data and reached the following consensus: 1) All women should engage in shared decision-making with their providers to decide when to start and how often to screen; 2) All women should have the opportunity to start screening mammography at age 40; 3) For women ages 45-55, we recommend annual screening mammograms; 4) For women ages 55 and over, we support both the transition from an annual to a biennial interval if this aligns more with patient's values and preferences, or continuation with annual screening; 5) All women should discuss with their providers when to stop screening mammograms. Collet Maker: Jaron Transcribe Date/Time: Jan 29 2024 10:22A Dictated by : EDU DORAN MD This examination was interpreted and the report reviewed and electronically signed by: EDU DORAN MD on Jan 29 2024 11:19AM [facility] 01-29-2024 Note IMPRESSION: ULTRASOU ND GUIDED BIOPSY There were no immediate complications and the patient tolerated procedure well. Ultrasound guided biopsy of the mass in the right breast at 6 o'clock anterior depth with placement of a clip was successful with no apparent post procedure complications. Waiting for pathology results. A final report will be issued when these become available. Edu PEREIRA, [facility]/jaron:01/29/2024 11:19:33 Sales Support Administrator(s): Zenia Carmen RT(R)(M), [facility]; Jyoti Myers, [facility] Multiple national specialty organizations have released breast cancer screening guidelines for women at average risk for developing breast cancer - guidelines that are based on both evidence and opinion, yet differ on when to start and how often to screen for breast cancer. With representation from Breast Imaging, Internal Medicine, Women's Health, Family Medicine, and Medical/Surgical Oncology, the [facility] has carefully reviewed the data and reached the following consensus: 1) All women should engage in shared decision-making with their providers to decide when to start and how often to screen; 2) All women should have the opportunity to start screening mammography at age 40; 3) For women ages 45-55, we recommend annual screening mammograms; 4) For women ages 55 and over, we support both the transition from an annual to a biennial interval if this aligns more with patient's values and preferences, or continuation with annual screening; 5) All women should discuss with their providers when to stop screening mammograms. Collet Maker: Jaron Transcribe Date/Time: Jan 29 2024 10:22A Dictated by : EDU DORAN MD This examination was interpreted and the report reviewed and electronically signed by: EDU DORAN MD on Aug 7 2024 11:19AM EST [facility] 01-29-2024 Instructions Formatting of th is note might be different from the original. Patient provided At Home Instructions pamphlet which was verbally reviewed by Nativis. [facility] 01-29-2024 Note HNO ID: [id number] Author: JYOTI MYERS CT Service: Radiology Author Type: Technologist Type: Patient Education Filed: 01/29/2024 10:54 Note Text: Patient provided At Home Instructions pamphlet which was verbally reviewed by [employer] tech. [facility] 01-29-2024 Miscellaneous Notes Patient provided At Home Instructions pamphlet which was verbally reviewed by Nativis. documented in this encounter [facility] 01-15-2024 Telephone encounter Note Patient notified of results, verbalizes understanding of instructions. Arianna Moran LPN [facility] 01-15-2024 Miscellaneous Notes Patient notified of results, verbalizes understanding of instructions. Arianna Moran LPN Can you please call the patient and let her know that her ultrasound was negative for DVT/clot. I would like her to continue with antibiotics. Please let me know if redness does not improve. Thank you. Melissa Hansen APRN.HAND CANDLE DIPPER documented in this encounter [facility] 01-15-2024 Telephone encounter Note Can you please call the patient and let her know that her ultrasound was negative for DVT/clot. I would like her to continue with antibiotics. Please let me know if redness does not improve. Thank you. Melissa Hansen APRN.[place] [facility] 01-15-2024 History of Present illness Narrative Radiology Service Progress Note PATIENT NAME: Kendy Alba DATE OF SERVICE: January 15, 2024 TIME: 4:28 PM PATIENT IDENTITY VERIFICATION COMPLETED USING TWO (2) IDENTIFIERS: Name and Date of confirmed by patient verbally. FALL SCREENING: Has the patient had 2 falls in the last year or 1 fall with injury or currently using an Ambulatory Assistive Device (Walker, Cane, Wheelchair, Crutches, etc.)? No PATIENT GENDER DATA: Female. status: : No status: NO. PATIENT RELEVANT IMPLANT DATA REVIEWED: Yes PATIENT PRESENTS WITH AN IMPLANTABLE OR ATTACHED REVIEW MANAGER: No RADIOLOGY DEPARTMENT: Ultrasound PERIPHERAL IV DATA: Not applicable SIGNED BY: Fidelia Dumont TECHNOLOGIST January 15, 2024 4:28 PM documented in this encounter [facility] 01-15-2024 Instructions Melissa Hansen APRN.CNP - 01/15/2024 10:19 AM EDT Start clindamycin take with food Watch for worsening symptoms, increase redness, swelling, pain, fever or chills go to ER Complete Ultra sound Follow up pending test results documented in this encounter [facility] 01-15-2024 History of Present illness Narrative This is a 68 year old female who presents today with: Patient presents with: Acute Visit: cellulitis on bilat legs HISTORY OF PRESENT ILLNESS: Kendy Alba is a 68 year old female. Patient presents with: Acute Visit: cellulitis on bilat legs Here in the office for concerns for cellulitis. Patient reports itchy, erythema, pain, and hot to the touch on bilateral legs. She reports that she is able to walk on it with no difficulty or pain. Started about 2 months ago, symptoms wax and wane. Denies fever, chills, and nausea/vomiting. PAST MEDICAL HISTORY: PAST MEDICAL HISTORY Diagnosis Date Essential hypertension, benign Family history of breast cancer Malignant neoplasm of breast (female), unspecified site left breast ca Psoriasis Unspecified asthma(493.90) Unspecified hypothyroidism PAST SURGICAL HISTORY Procedure Laterality Date PAST SURGICAL HISTORY OF 07/01/2014 left breast lumpectomy REMV CATARACT EXTRACAP,INSERT LENS 12/2022 [facility] REMV CATARACT EXTRACAP,INSERT LENS 02/27/2023 [facility] ALLERGIES Amoxicillin, Keflex [Cephalexin], Minocycline, and Sulfa (Sulfonamide Antibiotics) MEDICATIONS Current Outpatient Medications Medication Sig montelukast (SINGULAIR) 10 mg tablet Take 1 tablet by mouth daily at bedtime. albuterol HFA (PROVENTIL HFA, VENTOLIN HFA) 90 mcg/actuation inhaler Inhale 2 Puffs as instructed every 4 hours as needed for wheezing/shortness of breath. budesonide (PULMICORT FLEXHALER) 180 mcg/actuation aepb Inhale 1 Puff as instructed two times a day. One puff twice daily. losartan (COZAAR) 25 mg tablet Take 1 tablet by mouth once daily. levothyroxine (LEVOXYL) 112 mcg tablet Take 1 tablet by mouth once daily. Take on empty stomach. For thyroid. hydroCHLOROthiazide 25 mg tablet Take 1 tablet by mouth daily with breakfast. No current facility-administered medications for this visit. FAMILY HISTORY Problem Relation Age of Onset Coronary Artery Disease Mother Breast Cancer Sister other (DVT/PE) Daughter Social History Tobacco Use Smoking status: Former Packs/day: 1.00 Years: 15.00 Additional pack years: 0.00 Total pack years: 15.00 Types: Cigarettes Quit date: 06/24/1998 Years since quittin.5 Smokeless tobacco: Never Vaping Use Vaping Use: Never used Substance Use Topics Alcohol use: No Drug use: No REVIEW OF SYSTEMS GENERAL: No weight loss, malaise or fevers/chills HEENT: Negative for frequent or significant headaches, No changes in hearing or vision. NECK: Negative for lumps, goiter, pain and significant neck swelling RESPIRATORY: Negative for cough, hemoptysis, wheezing, dyspnea or shortness of breath CARDIOVASCULAR: Negative for chest pain, leg swelling, orthopnea, or palpitations GI: No nausea, vomiting, or diarrhea/constipation. No hematochezia/melena. No heartburn or reflux symptoms. : No history of dysuria, frequency or incontinence MUSCULOSKELETAL: Negative for joint pain or swelling. SKIN: + Calf redness/tenderness ENDOCRINE: Negative for cold or heat intolerance, polyuria, polydipsia and goiter NEURO: No history of headaches, syncope, paralysis, seizures or tremors MOOD: Negative for depression, anxiety, or suicidal ideation. EXAM: BP 130/80 Pulse 73 Resp 16 Wt 83.5 kg (184 lb) LMP 06/25/2005 SpO2 96% BMI 39.13 kg/m PHYSICAL EXAM: General Appearance: Well appearing, alert, in no acute distress, well-hydrated, well nourished. Skin: + Ropey varicose veins noted on calfs bilaterally, right calf very firm, mild increased warmth, mild erythema noted. Head: Normocephalic, no masses, lesions, tenderness or abnormalities. Eyes: Anicteric sclera. Pupils are equally round and reactive to light. Extraocular movements are intact. Lungs: Lungs clear to auscultation. No wheezing, rhonchi, rales.. Heart: RRR without murmur, gallop, or rubs. No ectopy. Extremities: No deformities, edema, skin discoloration, clubbing or cyanosis. Good capillary refill. Peripheral Pulses: Normal, Capillary refill <2secs, strong peripheral pulses, Pulses palpable. Neurologic: Gait normal. Sensation grossly intact. ASSESSMENT/PLAN: 1. Cellulitis of skin - ICD9: 682.9, ICD10: L03.90 (primary diagnosis) Cellulitis versus vascular dermatitis - Start clindamycin to cover for possible cellulitis. - Structured to elevate legs when possible - Flag symptoms given to patient, verbalizes understanding when to seek care - CLINDAMYCIN HCL 300 MG CAPSULE - FLORAJEN DIGESTION 15 BILLION CELL CAPSULE 2. Calf swelling - ICD9: 729.81, ICD10: M79.89 - Get ultrasound to rule out DVT - US LEG VEIN DVT UNL VAS LAB - US DVT LOWER RIGHT 3. Varicose veins of calf - ICD9: 454.9, ICD10: I83.90 - Same plan as #2 Follow-up pending test results Discussed treatment plan and patient voices understanding. Patient's questions answered appropriately. Medications and potential side effects were discussed and patient voices understanding. Melissa Hansen APRN.CNP This note was partially generated using [employer] voice recognition system. Note was reviewed for accuracy. There may be minor misspellings or grammar miscues with [employer] voice recognition. documented in this encounter [facility] 01-07-2024 History of Present illness Narrative Mammogram and ultrasound images from [facility] reviewed. Diagnostic imaging on 11/20/23 showed focal asymmetry in the right breast 6 o'clock position, middle depth. On ultrasound, there was a 0.7 x 0.6 x 0.7 cm irregular mass with angular margins seen in the right breast 6 o'clock position 3 cm from the nipple. This correlated with mammographic findings. Ultrasound guided biopsy was recommended. Directed ultrasound of the right axilla was negative. I agree with the diagnostic workup and recommendation for biopsy. Jai Gutierrez DO This has been reviewed by Lacy Jenkins who agrees documented in this encounter [facility] 01-06-2024 History of Present illness Narrative Unable to identify the lesion in the right breast today we will get her scheduled to have this done at a larger institution documented in this encounter [facility] 01-06-2024 Telephone encounter Note The following approved medication requests have been transmitted electronically. Requested Prescriptions Pending Prescriptions Disp Refills budesonide (PULMICORT FLEXHALER) 180 mcg/actuation aepb 3 Each 3 Sig: Inhale 1 Puff as instructed two times a day. One puff twice daily. Espinoza Fajardo APRN.CNP [facility] 01-06-2024 Miscellaneous Notes The following approved medication requests have been transmitted electronically. Requested Prescriptions Pending Prescriptions Disp Refills budesonide (PULMICORT FLEXHALER) 180 mcg/actuation aepb 3 Each 3 Sig: Inhale 1 Puff as instructed two times a day. One puff twice daily. Espinoza Fajardo APRN.ISRA[place] Prescription Refill Information The patient has been identified by name and date of : Yes Caregiver verified no other encounters exist for this prescription request: Yes Caregiver confirmed with patient/requestor that no other refills are due, in the near future, with this provider at this time: Yes The last office visit in the department: 05/21/2023 Does the patient have a future office visit with this provider/department: No Requested Prescriptions Pending Prescriptions Disp Refills budesonide (PULMICORT FLEXHALER) 180 mcg/actuation aepb 3 Each 3 Sig: Inhale 1 Puff as instructed two times a day. One puff twice daily. Tiffanie Nevarez LPN January 06, 2024 9:08 AM documented in this encounter [facility] 01-06-2024 Telephone encounter Note Prescription Refill Information The patient has been identified by name and date of : Yes Caregiver verified no other encounters exist for this prescription request: Yes Caregiver confirmed with patient/requestor that no other refills are due, in the near future, with this provider at this time: Yes The last office visit in the department: 05/21/2023 Does the patient have a future office visit with this provider/department: No Requested Prescriptions Pending Prescriptions Disp Refills budesonide (PULMICORT FLEXHALER) 180 mcg/actuation aepb 3 Each 3 Sig: Inhale 1 Puff as instructed two times a day. One puff twice daily. Tiffanie Nevarez LPN January 06, 2024 9:08 AM [facility] 01-06-2024 Telephone encounter Note The following approved medication requests have been transmitted electronically. Requested Prescriptions Pending Prescriptions Disp Refills montelukast (SINGULAIR) 10 mg tablet 90 tablet 3 Sig: Take 1 tablet by mouth daily at bedtime. albuterol HFA (PROVENTIL HFA, VENTOLIN HFA) 90 mcg/actuation inhaler 18 g 5 Sig: Inhale 2 Puffs as instructed every 4 hours as needed for wheezing/shortness of breath. Espinoza Fajardo APRN.ISRAEL [facility] 01-06-2024 Miscellaneous Notes The following approved medication requests have been transmitted electronically. Requested Prescriptions Pending Prescriptions Disp Refills montelukast (SINGULAIR) 10 mg tablet 90 tablet 3 Sig: Take 1 tablet by mouth daily at bedtime. albuterol HFA (PROVENTIL HFA, VENTOLIN HFA) 90 mcg/actuation inhaler 18 g 5 Sig: Inhale 2 Puffs as instructed every 4 hours as needed for wheezing/shortness of breath. Espinoza Fajardo APRN.CNP Prescription Refill Information The patient has been identified by name and date of : Yes Caregiver verified no other encounters exist for this prescription request: Yes Caregiver confirmed with patient/requestor that no other refills are due, in the near future, with this provider at this time: Yes The last office visit in the department: 05/21/23 Does the patient have a future office visit with this provider/department: No Requested Prescriptions Pending Prescriptions Disp Refills montelukast (SINGULAIR) 10 mg tablet 90 tablet 3 Sig: Take 1 tablet by mouth daily at bedtime. albuterol HFA (PROVENTIL HFA, VENTOLIN HFA) 90 mcg/actuation inhaler 18 g 5 Sig: Inhale 2 Puffs as instructed every 4 hours as needed for wheezing/shortness of breath. Tiffanie Nevarez LPN January 06, 2024 8:07 AM documented in this encounter [facility] 01-06-2024 Telephone encounter Note Prescription Refill Information The patient has been identified by name and date of : Yes Caregiver verified no other encounters exist for this prescription request: Yes Caregiver confirmed with patient/requestor that no other refills are due, in the near future, with this provider at this time: Yes The last office visit in the department: 05/21/23 Does the patient have a future office visit with this provider/department: No Requested Prescriptions Pending Prescriptions Disp Refills montelukast (SINGULAIR) 10 mg tablet 90 tablet 3 Sig: Take 1 tablet by mouth daily at bedtime. albuterol HFA (PROVENTIL HFA, VENTOLIN HFA) 90 mcg/actuation inhaler 18 g 5 Sig: Inhale 2 Puffs as instructed every 4 hours as needed for wheezing/shortness of breath. Tiffanie Nevarez LPN January 06, 2024 8:07 AM [facility] 12-16-2023 History of Present illness Narrative HISTORY AND PHYSICAL - BREAST COMPLAINT Kendy Alba 1955 REFERRING PHYSICIAN: Candace Cardona [address] [facility] [id number] CHIEF COMPLAINT: Abnormal mammogram (primary encounter diagnosis) HPI: The patient is a 68 year old female with a complaint of an abnormal mammogram. The patient had a mammogram with ultrasound on 11/20/23 which demonstrated : IMPRESSION: HIGHLY SUGGESTIVE OF MALIGNANCY - APPROPRIATE ACTION SHOULD BE TAKEN The 0.7 cm x 0.6 cm x 0.7 cm irregular mass in the right breast is highly suggestive of malignancy. An ultrasound guided biopsy is recommended. Negative right axillary ultrasound. The patient denies a history of breast masses. She does perform a self breast exam routinely. She notes no skin changes. She denies nipple discharge. She notes no axillary masses. She notes no family history of breast problems. She notes no significant breast trauma or breast difficulties in the past. The patient is being seen by me today at the request of Dr. Cardona for my opinion and advice regarding Abnormal mammogram (primary encounter diagnosis). PAST MEDICAL HISTORY Diagnosis Date Essential hypertension, benign Family history of breast cancer Malignant neoplasm of breast (female), unspecified site left breast ca Psoriasis Unspecified asthma(493.90) Unspecified hypothyroidism PAST SURGICAL HISTORY Procedure Laterality Date PAST SURGICAL HISTORY OF 07/01/2014 left breast lumpectomy REMV CATARACT EXTRACAP,INSERT LENS 12/2022 [facility] REMV CATARACT EXTRACAP,INSERT LENS 02/27/2023 [facility] Current Outpatient Medications Medication Sig Dispense Refill losartan (COZAAR) 25 mg tablet Take 1 tablet by mouth once daily. 90 tablet 3 levothyroxine (LEVOXYL) 112 mcg tablet Take 1 tablet by mouth once daily. Take on empty stomach. For thyroid. 90 tablet 3 albuterol HFA (PROVENTIL HFA, VENTOLIN HFA) 90 mcg/actuation inhaler Inhale 2 Puffs as instructed every 4 hours as needed for wheezing/shortness of breath. 18 g 5 montelukast (SINGULAIR) 10 mg tablet Take 1 tablet by mouth daily at bedtime. 90 tablet 3 hydroCHLOROthiazide 25 mg tablet Take 1 tablet by mouth daily with breakfast. 90 tablet 3 budesonide (PULMICORT FLEXHALER) 180 mcg/actuation aepb Inhale 1 Puff as instructed twice daily. One puff twice daily. 3 Each 3 No current facility-administered medications for this visit. ALLERGIES: Amoxicillin, Keflex [Cephalexin], Minocycline, and Sulfa (Sulfonamide Antibiotics) PERSONAL HISTORY: Social History Tobacco Use Smoking status: Former Packs/day: 1.00 Years: 15.00 Additional pack years: 0.00 Total pack years: 15.00 Types: Cigarettes Quit date: 06/24/1998 Years since quittin.4 Smokeless tobacco: Never Vaping Use Vaping Use: Never used Substance Use Topics Alcohol use: No Drug use: No FAMILY HISTORY: FAMILY HISTORY Problem Relation Age of Onset Coronary Artery Disease Mother Breast Cancer Sister other (DVT/PE) Daughter REVIEW OF SYMPTOMS: The review of systems data was entered by the nurse and reviewed by il Nursing Notes: Galina Roche RN 12/16/2023 2:00 PM Addendum REVIEW OF SYSTEMS: General: The patient denies fatigue, denies weight loss, denies weight gain, denies feeling hot, and denies feelings of cold. Eyes: The patient denies glaucoma, NOTES eye injury/surgery, wears glasses or contacts. Ear/Nose/Throat: The patient NOTES allergies, denies hayfever, denies ear infections, and denies bloody noses. Cardiovascular: The patient denies chest pain, denies heart disease, NOTES high blood pressure,denies cardiac stent, denies prior heart attack, denies irregular heart beat, NOTES high cholesterol, denies poor circulation, denies heart failure, other cardiac issues, denies claudication, denies cold feet, denies peripheral arterial stent. Respiratory: The patient denies tuberculosis, denies pneumonia, denies frequent cough, denies pulmonary embolism, NOTES shortness of breath, and denies coughing up blood. Gastrointestinal: The patient denies difficulty swallowing, denies acid reflux, denies ulcers, denies vomiting, denies jaundice/hepatitis, denies gallbladder problems, denies black or tarry stools, denies hemorrhoids, denies bleeding from rectum, denies diverticulitis, denies constipation, denies diarrhea, denies loss of stool control, and denies hernias. Kidney/Bladder: The patient denies kidney stones, denies urine infections, and denies bloody urine. Skin: The patient denies a history of skin cancer, denies bleeding/changing moles, and NOTES a history of skin rash. Neurologic: The patient denies a history of epilepsy/convulsions, denies headaches, denies head/spinal injuries, and denies stroke/TIA. Psychiatric: The patient denies psychiatric medications, denies depression, and denies voices, denies substance abuse. Endocrine: The patient NOTES thyroid disorders, denies diabetes, and denies hormonal problems. Hematologic: The patient denies a history of bruising, denies bleeding, and denies anemia, denies blood clots. Infections: The patient denies a history of measles and mumps, denies rheumatic fever, and denies sexually transmitted diseases. Musculoskeletal: The patient denies back pain/injury, denies back problems, denies sciatica, denies knee/foot trouble, denies arthritis, or denies gout. When was patient's last Mammogram screening? 11/20/2023 Last Colonoscopy: Galina Roche RN PHYSICAL EXAMINATION: General: The patient is 68 year old female, well nourished, well hydrated in no acute distress. The patient is oriented to time, place, and person. VITALS: Blood pressure 140/88, pulse 73, temperature 36.8 C (98.3 F), height 146.1 cm (4' 9.5), weight 83.2 kg (183 lb 6.4 oz), last menstrual period 06/25/2005, SpO2 96%. Body mass index is 39 kg/m . HEENT: Normal cephalic, ataumatic, pupils are equally round, sclera are anicteric, mucous membranes are moist, oropharynx is clear. Neck has no masses, asymmetry or lymphadenopathy. Thyroid is unremarkable. Respiratory: Clear to auscultation and percussion. Normal respiratory excursion and pattern. Cardiac: Examination is regular rate and rhythm. Abdominal exam: Soft, nontender, with no palpable masses. No hepatosplenomegaly. No palpable hernias. Rectal exam: exam deferred Extremities: no clubbing, cyanosis or edema. No adenopathy. Breast: Visual inspection reveals no retractions, nipple inversion, or skin changes. Palpation of the right breast reveals no dominant or suspicious masses, but multiple benign-feeling nodules. Palpation of the left breast reveals no dominant or suspicious masses, but multiple benign-feeling nodules. Axillary exam demonstrates no suspicious masses in either the left or right axilla. There is no nipple discharge expressed from either the left or right breast. LABORATORY VALUES: As Noted RADIOLOGIC STUDIES: As Noted Assessment IMPRESSION: Abnormal mammogram (primary encounter diagnosis) PLAN: I plan to perform a ultrasound guided mammotome core biopsy of the right breast. The planned surgical procedure was discussed extensively with the patient. The risks, benefits, anticipated outcomes and possible complications were mentioned. My staff has also explained the procedure in understandable terms and the patient was given the option to take printed material concerning the planned procedure. The patient had the opportunity to ask questions concerning the planned procedure. The patient freely consents to the planned procedure. Diagnoses: (R92.8) Abnormal mammogram (primary encounter diagnosis) My findings have been communicated to Dr. Cardona via shared medical record. This note will be forwarded to Dr. Juanita Emmanuel MD. Return to Clinic: The patient is instructed to follow-up with me 1 week post operatively. Eze Linn III, MD documented in this encounter [facility] 12-16-2023 Nurse Note REVIEW OF SYSTEMS: General: The patient denies fatigue, denies weight loss, denies weight gain, denies feeling hot, and denies feelings of cold. Eyes: The patient denies glaucoma, NOTES eye injury/surgery, wears glasses or contacts. Ear/Nose/Throat: The patient NOTES allergies, denies hayfever, denies ear infections, and denies bloody noses. Cardiovascular: The patient denies chest pain, denies heart disease, NOTES high blood pressure,denies cardiac stent, denies prior heart attack, denies irregular heart beat, NOTES high cholesterol, denies poor circulation, denies heart failure, other cardiac issues, denies claudication, denies cold feet, denies peripheral arterial stent. Respiratory: The patient denies tuberculosis, denies pneumonia, denies frequent cough, denies pulmonary embolism, NOTES shortness of breath, and denies coughing up blood. Gastrointestinal: The patient denies difficulty swallowing, denies acid reflux, denies ulcers, denies vomiting, denies jaundice/hepatitis, denies gallbladder problems, denies black or tarry stools, denies hemorrhoids, denies bleeding from rectum, denies diverticulitis, denies constipation, denies diarrhea, denies loss of stool control, and denies hernias. Kidney/Bladder: The patient denies kidney stones, denies urine infections, and denies bloody urine. Skin: The patient denies a history of skin cancer, denies bleeding/changing moles, and NOTES a history of skin rash. Neurologic: The patient denies a history of epilepsy/convulsions, denies headaches, denies head/spinal injuries, and denies stroke/TIA. Psychiatric: The patient denies psychiatric medications, denies depression, and denies voices, denies substance abuse. Endocrine: The patient NOTES thyroid disorders, denies diabetes, and denies hormonal problems. Hematologic: The patient denies a history of bruising, denies bleeding, and denies anemia, denies blood clots. Infections: The patient denies a history of measles and mumps, denies rheumatic fever, and denies sexually transmitted diseases. Musculoskeletal: The patient denies back pain/injury, denies back problems, denies sciatica, denies knee/foot trouble, denies arthritis, or denies gout. When was patient's last Mammogram screening? 11/20/2023 Last Colonoscopy: Galina Roche RN [facility] 12-16-2023 Nurse Note REVIEW OF SYSTEMS: General: The patient denies fatigue, denies weight loss, denies weight gain, denies feeling hot, and denies feelings of cold. Eyes: The patient denies glaucoma, NOTES eye injury/surgery, wears glasses or contacts. Ear/Nose/Throat: The patient NOTES allergies, denies hayfever, denies ear infections, and denies bloody noses. Cardiovascular: The patient denies chest pain, denies heart disease, NOTES high blood pressure,denies cardiac stent, denies prior heart attack, denies irregular heart beat, NOTES high cholesterol, denies poor circulation, denies heart failure, other cardiac issues, denies claudication, denies cold feet, denies peripheral arterial stent. Respiratory: The patient denies tuberculosis, denies pneumonia, denies frequent cough, denies pulmonary embolism, NOTES shortness of breath, and denies coughing up blood. Gastrointestinal: The patient denies difficulty swallowing, denies acid reflux, denies ulcers, denies vomiting, denies jaundice/hepatitis, denies gallbladder problems, denies black or tarry stools, denies hemorrhoids, denies bleeding from rectum, denies diverticulitis, denies constipation, denies diarrhea, denies loss of stool control, and denies hernias. Kidney/Bladder: The patient denies kidney stones, denies urine infections, and denies bloody urine. Skin: The patient denies a history of skin cancer, denies bleeding/changing moles, and NOTES a history of skin rash. Neurologic: The patient denies a history of epilepsy/convulsions, denies headaches, denies head/spinal injuries, and denies stroke/TIA. Psychiatric: The patient denies psychiatric medications, denies depression, and denies voices, denies substance abuse. Endocrine: The patient NOTES thyroid disorders, denies diabetes, and denies hormonal problems. Hematologic: The patient denies a history of bruising, denies bleeding, and denies anemia, denies blood clots. Infections: The patient denies a history of measles and mumps, denies rheumatic fever, and denies sexually transmitted diseases. Musculoskeletal: The patient denies back pain/injury, denies back problems, denies sciatica, denies knee/foot trouble, denies arthritis, or denies gout. When was patient's last Mammogram screening? 11/20/2023 Last Colonoscopy: Galina Roche RN documented in this encounter [facility] 11-21-2023 History of Present illness Narrative Chief Complaint Patient presents with: Established Patient HPI: Kendy Alba is a 68 year old female who presents here today for follow up breast cancer. Per Dr. Chairez's previous note: H/o PMH significant for asthma (daily Pulmicort; infrequent rescue inhaler use), HTN and hypothyroidism who had a screening mammogram done in February 2014 that suggested a possible new or enlarging nodular density in the upper outer left breast. Additional imaging was recommended and carried out on 04/08/2014. Additional mammography views demonstrated an irregular soft tissue nodule with some smooth round calcifications. Targeted ultrasound showed a 1.4 cm hypoechoic nodular density with internal vascularity in shadowing likely representing malignancy. Ultrasound-guided core biopsy performed on 05/07/2014 demonstrated invasive ductal carcinoma nuclear grade 1. Ductal carcinoma in situ was also observed. The specimen was positive for estrogen receptors greater than 95% staining strongly. Progesterone receptors were quantified at 75% with moderate. HER-2 was 1+. The patient underwent breast conserving surgery consisting of a lumpectomy and left axillary sentinel lymph node biopsy on 07/01/2014. The final pathology demonstrated a single focus of tumor measuring 1.5 cm in maximum dimension. DCIS was present and comprised approximately 80% of the total tumor volume. The nuclear grade was 2 of the DCIS. Histologic grade of the malignancy was 2. Final histologic type was invasive duct carcinoma with focal apocrine features. Margins were negative with the closest being 1.5 cm. Lymphovascular invasion was not identified. One sentinel lymph node was retrieved and was negative for disease. Healed well. No h/o HRT use. Radiation treatment:08/25/14 to 09/22/14 Previous therapy:Arimidex Began September 2014. Pt. had R dx mamm/US. Appetite:Good. Energy level:Good. Walks daily to achieve 10,000 steps daily. Denies fevers or recent illness. Resp:denies cough or sob, occ. osman with steps h/o asthma-uses inhaler Cardiac:denies chest pain/palpitations GI:denies abd pain, n/v, moving bowels regularly :denies dysuria/hematuria Extrem:denies pain to back/bones/joints Endo:denies hot flashes Neuro:denies symptoms of neuropathy Skin:denies rashes/lesions Heme:denies bleeding The ROS is otherwise negative. Past medical history, appointments, medications, allergies reviewed. No changes. EXAM: BP 158/96 Pulse (!) 57 Temp 36.9 C (98.5 F) (Temporal) Wt 84.1 kg (185 lb 4.8 oz) LMP 06/25/2005 SpO2 98% BMI 39.40 kg/m APPEARANCE Well appearing, alert, in no acute distress, well-hydrated, well nourished. HEART RRR with normal S1 and S2, no murmurs LUNG clear to auscultation LYMPH NODES No cervical lymphadenopathy, No supraclavicular lymphadenopathy, and No axillary lymphadenopathy. ABDOMEN bowel sounds normoactive, soft, non-tender EXTREMITIES No edema NEURO Awake, alert and oriented x 3, Normal gait, and No involuntary motions. SKIN Skin color, texture, turgor normal, no suspicious rashes or lesions ASSESSMENT/PLAN: 1. Personal history of breast cancer - ICD9: V10.3, ICD10: Z85.3 (primary diagnosis) 2. 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 - No concerning findings on exam. - Tolerated arimidex well. - Completed AI therapy 2022. - Reviewed R dx mammograms/US with pt. Biopsy recommended. - Encouraged pt. to have colonoscopy-she declined. - Follow up with Dr. Linn as scheduled. - Follow up after above. - Pt. aware to call office with any questions/concerns. The patient indicates understanding of these issues and agrees with the plan. All documentation from previous visit of 05/22/23-Dr. Chairez/myself was copied and pasted, documentation has been reviewed and edited as necessary for today's visit. Candace Cardona APRN.[place] documented in this encounter [facility] 11-20-2023 Note IMPRESSION: INCOMPLE TE: NEEDS ADDITIONAL IMAGING EVALUATION The 9 mm oval equal density focal asymmetry in the right breast is indeterminate. An ultrasound is recommended. LIMITED ULTRASOUND OF RIGHT BREAST AND AXILLA: 11/20/2023 RESULT: Comparison is made to exams dated: 05/14/2023 mammogram, 04/16/2023 mammogram, 03/29/2022 mammogram, and 03/27/2021 mammogram - [facility]. Color flow and real-time ultrasound of the right breast 6 o'clock, and axilla regions were performed. Pleitez scale images of the real-time examination were reviewed. There is a 0.7 cm x 0.6 cm x 0.7 cm irregular mass with an angular margin in the right breast at 6 o'clock middle depth 3 cm from the nipple. This irregular mass is hypoechoic with posterior acoustic shadowing. This correlates with mammography findings. Directed ultrasound of the right axilla was negative. IMPRESSION: HIGHLY SUGGESTIVE OF MALIGNANCY - APPROPRIATE ACTION SHOULD BE TAKEN The 0.7 cm x 0.6 cm x 0.7 cm irregular mass in the right breast is highly suggestive of malignancy. An ultrasound guided biopsy is recommended. Negative right axillary ultrasound. Kyle patel/jaron:11/20/2023 10:08:55 Multiple national specialty organizations have released breast cancer screening guidelines for women at average risk for developing breast cancer - guidelines that are based on both evidence and opinion, yet differ on when to start and how often to screen for breast cancer. With representation from Breast Imaging, Internal Medicine, Women's Health, Family Medicine, and Medical/Surgical Oncology, the [facility] has carefully reviewed the data and reached the following consensus: 1) All women should engage in shared decision-making with their providers to decide when to start and how often to screen; 2) All women should have the opportunity to start screening mammography at age 40; 3) For women ages 45-55, we recommend annual screening mammograms; 4) For women ages 55 and over, we support both the transition from an annual to a biennial interval if this aligns more with patient's values and preferences, or continuation with annual screening; 5) All women should discuss with their providers when to stop screening mammograms. Sales Support Administrator(s): Noar Patterson, [facility]; Jessica Awad, [facility] OVERALL STUDY BIRADS: 5 Highly suggestive of malignancy - Appropriate action should be taken Collet Maker: Jaron Transcribe Date/Time: Nov 20 2023 8:47A Dictated by: KYLE ROSS MD This examination was interpreted and the report reviewed and electronically signed by: KYLE ROSS MD on Nov 20 2023 10:08AM [facility] DIVISION OF RADIOLOGY 11-20-2023 Note IMPRESSION: INCOMPLE TE: NEEDS ADDITIONAL IMAGING EVALUATION The 9 mm oval equal density focal asymmetry in the right breast is indeterminate. An ultrasound is recommended. LIMITED ULTRASOUND OF RIGHT BREAST AND AXILLA: 11/20/2023 RESULT: Comparison is made to exams dated: 05/14/2023 mammogram, 04/16/2023 mammogram, 03/29/2022 mammogram, and 03/27/2021 mammogram - [facility]. Color flow and real-time ultrasound of the right breast 6 o'clock, and axilla regions were performed. Pleitez scale images of the real-time examination were reviewed. There is a 0.7 cm x 0.6 cm x 0.7 cm irregular mass with an angular margin in the right breast at 6 o'clock middle depth 3 cm from the nipple. This irregular mass is hypoechoic with posterior acoustic shadowing. This correlates with mammography findings. Directed ultrasound of the right axilla was negative. IMPRESSION: HIGHLY SUGGESTIVE OF MALIGNANCY - APPROPRIATE ACTION SHOULD BE TAKEN The 0.7 cm x 0.6 cm x 0.7 cm irregular mass in the right breast is highly suggestive of malignancy. An ultrasound guided biopsy is recommended. Negative right axillary ultrasound. Kyle patel/jaron:11/20/2023 10:08:55 Multiple national specialty organizations have released breast cancer screening guidelines for women at average risk for developing breast cancer - guidelines that are based on both evidence and opinion, yet differ on when to start and how often to screen for breast cancer. With representation from Breast Imaging, Internal Medicine, Women's Health, Family Medicine, and Medical/Surgical Oncology, the [facility] has carefully reviewed the data and reached the following consensus: 1) All women should engage in shared decision-making with their providers to decide when to start and how often to screen; 2) All women should have the opportunity to start screening mammography at age 40; 3) For women ages 45-55, we recommend annual screening mammograms; 4) For women ages 55 and over, we support both the transition from an annual to a biennial interval if this aligns more with patient's values and preferences, or continuation with annual screening; 5) All women should discuss with their providers when to stop screening mammograms. Sales Support Administrator(s): Nora Patterson, [facility]; Jessica Awad, [facility] OVERALL STUDY BIRADS: 5 Highly suggestive of malignancy - Appropriate action should be taken Collet Maker: Jaron Transcribe Date/Time: Nov 20 2023 8:47A Dictated by : KYLE ROSS MD This examination was interpreted and the report reviewed and electronically signed by: KYLE ROSS MD on Nov 20 2023 10:08AM [facility] DIVISION OF RADIOLOGY 11-20-2023 History of Present illness Narrative Radiology Service Progress Note PATIENT NAME: Kendy Alba DATE OF SERVICE: November 20, 2023 TIME: 8:39 AM PATIENT IDENTITY VERIFICATION COMPLETED USING TWO (2) IDENTIFIERS: Name and Date of confirmed by patient verbally. FALL SCREENING: Has the patient had 2 falls in the last year or 1 fall with injury or currently using an Ambulatory Assistive Device (Walker, Cane, Wheelchair, Crutches, etc.)? No PATIENT GENDER DATA: Female. status: : No status: NO. PATIENT RELEVANT IMPLANT DATA REVIEWED: Not Applicable PATIENT PRESENTS WITH AN IMPLANTABLE OR ATTACHED REVIEW MANAGER: No RADIOLOGY DEPARTMENT: Mammography PERIPHERAL IV DATA: Not applicable SIGNED BY: RT Whit(R) November 20, 2023 8:39 AM documented in this encounter [facility] 09-30-2023 Miscellaneous Notes The following approved medication requests have been transmitted electronically. Requested Prescriptions Signed Prescriptions Disp Refills fluocinonide (LIDEX) 0.05 % cream 90 g 3 Sig: Apply 1 application to affected area two times a day for 14 days. Espinoza Fajardo APRN.CNP TANYA: 05/21/23 with PCP NOV: No FM appointment scheduled at this time Last refill: 09/03/2022 With 90 g and 3 refills Carolyn Faria MA documented in this encounter [facility] 05-22-2023 History of Present illness Narrative Chief Complaint Patient presents with: Established Patient HPI: Kendy Alba is a 67 year old female who presents here today for follow breast cancer. Per Dr. Chairez's previous note: H/o PMH significant for asthma (daily Pulmicort; infrequent rescue inhaler use), HTN and hypothyroidism who had a screening mammogram done in February 2014 that suggested a possible new or enlarging nodular density in the upper outer left breast. Additional imaging was recommended and carried out on 04/08/2014. Additional mammography views demonstrated an irregular soft tissue nodule with some smooth round calcifications. Targeted ultrasound showed a 1.4 cm hypoechoic nodular density with internal vascularity in shadowing likely representing malignancy. Ultrasound-guided core biopsy performed on 05/07/2014 demonstrated invasive ductal carcinoma nuclear grade 1. Ductal carcinoma in situ was also observed. The specimen was positive for estrogen receptors greater than 95% staining strongly. Progesterone receptors were quantified at 75% with moderate. HER-2 was 1+. The patient underwent breast conserving surgery consisting of a lumpectomy and left axillary sentinel lymph node biopsy on 07/01/2014. The final pathology demonstrated a single focus of tumor measuring 1.5 cm in maximum dimension. DCIS was present and comprised approximately 80% of the total tumor volume. The nuclear grade was 2 of the DCIS. Histologic grade of the malignancy was 2. Final histologic type was invasive duct carcinoma with focal apocrine features. Margins were negative with the closest being 1.5 cm. Lymphovascular invasion was not identified. One sentinel lymph node was retrieved and was negative for disease. Healed well. No h/o HRT use. Radiation treatment:08/25/14 to 09/22/14 Previous therapy:Arimidex Began September 2014. No new concerns today. Appetite:Good. Energy level:Good. Walks daily to achieve 10,000 steps daily. Denies fevers or recent illness. Resp:denies cough or sob, occ. osman with steps h/o asthma-uses inhaler Cardiac:denies chest pain/palpitations GI:denies abd pain, n/v, moving bowels regularly :denies dysuria/hematuria Extrem:denies pain to back/bones/joints Endo:denies hot flashes Neuro:denies symptoms of neuropathy Skin:denies rashes/lesions Heme:denies bleeding The ROS is otherwise negative. Past medical history, appointments, medications, allergies reviewed. No changes. EXAM: BP 154/84 Pulse (!) 56 Temp 36.7 C (98 F) (Temporal) Wt 81.6 kg (180 lb) LMP 06/25/2005 SpO2 100% BMI 38.28 kg/m APPEARANCE Well appearing, alert, in no acute distress, well-hydrated, well nourished. HEART RRR with normal S1 and S2, no murmurs LUNG clear to auscultation BREAST FEMALE no mass/nodule b/l, L radiation changes LYMPH NODES No cervical lymphadenopathy, No supraclavicular lymphadenopathy, and No axillary lymphadenopathy. ABDOMEN bowel sounds normoactive, soft, non-tender EXTREMITIES Extremities normal, No deformities, and No edema NEURO Awake, alert and oriented x 3, Normal gait, and No involuntary motions. SKIN Skin color, texture, turgor normal, no suspicious rashes or lesions RADIOLOGY: Mammogram 04/16/23: IMPRESSION: INCOMPLETE: NEEDS ADDITIONAL IMAGING EVALUATION The possible asymmetry in the right breast is indeterminate. Additional views are recommended. R dx 05/14/23: IMPRESSION: PROBABLY BENIGN - SHORT TERM INTERVAL FOLLOW-UP RECOMMENDED The 9 mm irregular asymmetry in the right breast has a differential diagnosis of fibroglandular tissue and is probably benign. US 05/14/23: IMPRESSION: NEGATIVE There is no sonographic evidence of malignancy. There is no abnormality seen in the right breast to correspond with the mammographic density. A follow-up mammogram in 6 months is recommended to demonstrate stability. ASSESSMENT/PLAN: 1. Personal history of breast cancer - ICD9: V10.3, ICD10: Z85.3 (primary diagnosis) pT1c (1.5 cm; grade 2; no LVI) pN0(sn) MX ER/LA positive HER2 negative invasive ductal carcinoma of the left breast. - No concerning findings on exam. - Tolerated arimidex well. - Completed AI therapy 2022. - Reviewed mammograms/US with pt. - Encouraged pt. to have colonoscopy-she declined. - R dx mamm/US in 6 months. - Follow up after above. - Pt. aware to call office with any questions/concerns. The patient indicates understanding of these issues and agrees with the plan. All documentation from previous visit of 11/09/22-Dr. Chairez/myself was copied and pasted, documentation has been reviewed and edited as necessary for today's visit. Candace Cardona APRN.[place] documented in this encounter [facility] 05-14-2023 History of Present illness Narrative Radiology Service Progress Note PATIENT NAME: Kendy Alba DATE OF SERVICE: May 14, 2023 TIME: 11:21 AM PATIENT IDENTITY VERIFICATION COMPLETED USING TWO (2) IDENTIFIERS: Name and Date of confirmed by patient verbally. FALL SCREENING: Has the patient had 2 falls in the last year or 1 fall with injury or currently using an Ambulatory Assistive Device (Walker, Cane, Wheelchair, Crutches, etc.)? No PATIENT GENDER DATA: Female. status: : No status: NO. PATIENT RELEVANT IMPLANT DATA REVIEWED: Not Applicable RADIOLOGY DEPARTMENT: Ultrasound PERIPHERAL IV DATA: Not applicable SIGNED BY: Evelin Melchor RDMS RVT May 14, 2023 11:21 AM documented in this encounter [facility] 05-14-2023 History of Present illness Narrative Radiology Service Progress Note PATIENT NAME: Kendy Alba DATE OF SERVICE: May 14, 2023 TIME: 9:15 AM PATIENT IDENTITY VERIFICATION COMPLETED USING TWO (2) IDENTIFIERS: Name and Date of confirmed by patient verbally. FALL SCREENING: Has the patient had 2 falls in the last year or 1 fall with injury or currently using an Ambulatory Assistive Device (Walker, Cane, Wheelchair, Crutches, etc.)? No PATIENT GENDER DATA: Female. status: : No status: NO. PATIENT RELEVANT IMPLANT DATA REVIEWED: Not Applicable RADIOLOGY DEPARTMENT: Mammography PERIPHERAL IV DATA: Not applicable SIGNED BY: Katrin Castillo Full Capture [employer]so Randy May 14, 2023 9:15 AM documented in this encounter [facility] 05-07-2023 Miscellaneous Notes Patient notified. Ev Crawford RN Labs ordered Juanita Emmanuel MD Pending labs for approval. Please review chart. Called pt to reschedule appt with Candace and she asked if Dr. Emmanuel would put in her yearly lab work. She comes to see him on the 21 of May. She said she would like to have same labs drawn as last year. Please advise and assist Thank you!! Surekha documented in this encounter [facility] 04-22-2023 Miscellaneous Notes The following approved medication requests have been transmitted electronically. Requested Prescriptions Pending Prescriptions Disp Refills losartan (COZAAR) 25 mg tablet 90 tablet 3 Sig: Take 1 tablet by mouth once daily. levothyroxine (LEVOXYL) 112 mcg tablet 90 tablet 3 Sig: Take 1 tablet by mouth once daily. Take on empty stomach. For thyroid. Espinoza Fajardo APRN.CNP Patient phones requesting refills as follows: Requested Prescriptions Pending Prescriptions Disp Refills losartan (COZAAR) 25 mg tablet 90 tablet 3 Sig: Take 1 tablet by mouth once daily. levothyroxine (LEVOXYL) 112 mcg tablet 90 tablet 3 Sig: Take 1 tablet by mouth once daily. Take on empty stomach. For thyroid. [facility]05/15/22-05/15/22Apr-05/21/23 Please review and advise. Arianna Moran LPN documented in this encounter [facility] 04-22-2023 Miscellaneous Notes The following approved medication requests have been transmitted electronically. Requested Prescriptions Pending Prescriptions Disp Refills albuterol HFA (PROVENTIL HFA, VENTOLIN HFA) 90 mcg/actuation inhaler 18 g 5 Sig: Inhale 2 Puffs as instructed every 4 hours as needed for wheezing/shortness of breath. Espinoza Fajardo APRN.[place] [facility]05/15/22 Labs-05/15/2205/21/23 documented in this encounter [facility] 04-17-2023 Miscellaneous Notes Message relayed to patient 1st attempt. Relay message below and give number for Breast center to schedule call backs. [phone] Please inform pt. that the radiologist would like additional images of right breast. Please schedule R dx mamm/US soon. Orders in. Thank you. Candace Cardona APRN.HAND CANDLE DIPPER documented in this encounter [facility] 04-17-2023 Miscellaneous Notes April 17, 2023 PID: [id number] Kendy Alba [address] [place] [address] [place] [address] Dear Ms. Alba, Your recent breast imaging exam on 04/16/2023 showed a possible finding that requires additional imaging studies for a complete evaluation. Most such findings are probably benign (not cancer). Your mammogram demonstrates that you have dense breast tissue, which could hide abnormalities. Dense breast tissue, in and of itself, is a relatively common condition. Therefore, this information is not provided to cause undue concern; rather, it is to raise your awareness and promote discussion with your health care provider regarding the presence of dense breast tissue in addition to other risk factors. If you have a healthcare provider who ordered/prescribed your screening mammogram: Please call [phone] or EXT: [phone] to schedule an appointment for your additional imaging (if you have not already done so). If you DO NOT have a healthcare provider (ie you did not have an order/prescription for your screening mammogram): Please call to schedule an appointment for your additional imaging (if you have not already done so). You must have an order/prescription from your physician when calling to schedule your appointment. If your order/prescription is not electronic, you must bring the hard copy with you on the day of your exam to avoid delays. Your imaging studies and reports are kept on file at [facility] as part of your permanent medical record, and are available for your continuing care. Thank you for allowing us to help in meeting your health care needs. Sincerely, Dr. Acuna Interpreting Radiologist [facility] (Additional imaging) documented in this encounter [facility] 04-16-2023 History of Present illness Narrative Radiology Service Progress Note PATIENT NAME: Kendy Alba DATE OF SERVICE: April 16, 2023 TIME: 8:59 AM PATIENT IDENTITY VERIFICATION COMPLETED USING TWO (2) IDENTIFIERS: Name and Date of confirmed by patient verbally. FALL SCREENING: Has the patient had 2 falls in the last year or 1 fall with injury or currently using an Ambulatory Assistive Device (Walker, Cane, Wheelchair, Crutches, etc.)? No PATIENT GENDER DATA: Female. status: : No status: NO. PATIENT RELEVANT IMPLANT DATA REVIEWED: Not Applicable RADIOLOGY DEPARTMENT: Mammography PERIPHERAL IV DATA: Not applicable SIGNED BY: Yohannes Peterson April 16, 2023 8:59 AM documented in this encounter [facility] 01-17-2023 Miscellaneous Notes The following approved medication requests have been transmitted electronically. Requested Prescriptions Pending Prescriptions Disp Refills montelukast (SINGULAIR) 10 mg tablet 90 tablet 3 Sig: Take 1 tablet by mouth daily at bedtime. Espinoza Fajardo APRN.HAND CANDLE DIPPER Patient phones requesting refills as follows: Requested Prescriptions Pending Prescriptions Disp Refills montelukast (SINGULAIR) 10 mg tablet 90 tablet 3 Sig: Take 1 tablet by mouth daily at bedtime. TANYA-05/15/22 Labs-05/15/22 NOV-05/21/23 Please review and advise. Arianna Moran LPN documented in this encounter [facility] 01-17-2023 Miscellaneous Notes The following approved medication requests have been transmitted electronically. Requested Prescriptions Pending Prescriptions Disp Refills hydroCHLOROthiazide 25 mg tablet 90 tablet 3 Sig: Take 1 tablet by mouth daily with breakfast. Espinoza Fajardo APRN.[place] Patient phones requesting refills as follows: Requested Prescriptions Pending Prescriptions Disp Refills hydroCHLOROthiazide 25 mg tablet 90 tablet 3 Sig: Take 1 tablet by mouth daily with breakfast. TANYA-05/15/22 Labs-05/15/22 NOV-05/21/23 Please review and advise. Arianna Moran LPN documented in this encounter [facility] 05-16-2022 Miscellaneous Notes Done Juanita Emmanuel MD Pt notified and voiced understanding. Please file order to to go mail order Shana Nolasco Ma Please notify patient that her lab results show that her TSH is low, indicating that her thyroid dos is too high. I would like to cut her back to 112 mcg daily rather than the 125 mcg that she is on now. She may start this with her next refill. OK to recheck in one year as planned. The rest of the labs looked OK Juanita Emmanuel MD documented in this encounter [facility] 05-15-2022 History of Present illness Narrative Chief Complaint Patient presents with: Medicare Wellness Exam HPI Kendy Alba is a 66 year old female who presents here today for a routine follow up. Pt here today for a routine annual follow up. She is fasting today and would like to have labs completed. GI/Uro - Denies any stomach, bowel or urinary issues. Declines colonoscopy today and IFOBT. HTN - Checks BP at home weekly, reports overall doing okay. Yesterday's BP was 123/80. Denies any chest pain, sob or dizziness. On current regimen of HCTZ 25 mg once daily and Lisinopril 5 mg one to twice daily. Notes that she does have a cough with the Lisinopril and wonders about switching to Losartan. Thyroid - Stable on current regimen of Levoxyl 125 mcg once daily. Hem/Onc - hx of breast cancer. Follows with Candace Cardona CNP every 6 months. Taking Arimidex 1 mg once daily. Diet/Exercise - Working on losing weight. Tries to walk and get 10,000 steps daily. Has lost 15 lbs over the the past year. Has cut out drinking pop, still eats what she wants. Asthma - Notes having a cold currently, that she generally gets every year. Has gone on for about 1 week, but feels this is improving. On current regimen of Singulair 10 mg once daily, Pulmicort 1 puff bid and prn Proventil 90 mcg. HM - Declines Hep C. Has Adv Dir/Living Will. Declines Depression. Declines colon cancer screening today. Shingles discussed. Past medical history, appointments, medications, allergies reviewed. Previous Medical History PAST MEDICAL HISTORY Diagnosis Date Essential hypertension, benign Malignant neoplasm of breast (female), unspecified site Unspecified asthma(493.90) Unspecified hypothyroidism Previous Surgical History PAST SURGICAL HISTORY Procedure Laterality Date NONE PAST SURGICAL HISTORY OF 07/01/14 left breast lumpectomy Family History FAMILY HISTORY Problem Relation Age of Onset Coronary Artery Disease Mother Breast Cancer Sister other (DVT/PE) Daughter Patient Allergies ALLERGIES Allergen Reactions Amoxicillin Hives Keflex [Cephalexin] Hives Minocycline Hives Sulfa (Sulfonamide * Hives Current Medications Current Outpatient Medications on File Prior to Visit Medication Sig albuterol HFA (PROVENTIL HFA, VENTOLIN HFA) 90 mcg/actuation inhaler Inhale 2 Puffs as instructed every 4 hours as needed for wheezing/shortness of breath. montelukast (SINGULAIR) 10 mg tablet Take 1 tablet by mouth daily at bedtime. hydroCHLOROthiazide (HYDRODIURIL, ESIDRIX) 25 mg tablet Take 1 tablet by mouth daily with breakfast. lisinopril (ZESTRIL, PRINIVIL) 5 mg tablet Take 1 tablet by mouth twice daily. budesonide (PULMICORT FLEXHALER) 180 mcg/actuation aepb Inhale 1 Puff as instructed twice daily. One puff twice daily. anastrozole (ARIMIDEX) 1 mg tablet Take 1 tablet by mouth once daily. levothyroxine (LEVOXYL) 125 mcg tablet Take 1 tablet by mouth once daily. fluocinonide (LIDEX) 0.05 % cream Apply 1 application to affected area twice daily. No current facility-administered medications on file prior to visit. Social History Social History Tobacco Use Smoking status: Former Packs/day: 1.00 Years: 15.00 Pack years: 15.00 Types: Cigarettes Quit date: 06/24/1998 Years since quittin.9 Smokeless tobacco: Never Vaping Use Vaping Use: Never used Substance Use Topics Alcohol use: No Drug use: No EXAM: BP 136/84 (BP Site: Left Arm, BP Position: Sitting, BP Cuff Size: Regular Adult) Pulse 64 Resp 16 Ht 147.3 cm (4' 10) Wt 76.1 kg (167 lb 12.8 oz) LMP 06/27/2005 BMI 35.07 kg/m General Appearance: Well appearing, alert, in no acute distress, well-hydrated, well nourished. and Obese. Neck: Supple, no adenopathy; thyroid symmetric, normal size, no bruits. Lungs: Lungs clear to auscultation. No wheezing, rhonchi, rales.. Heart: RRR without murmur, gallop, or rubs. No ectopy. Health Maintenance List SPIROMETRY Never done HEPATITIS C SCREENING Never done BP CONTROLLED (<130/80) Never done SHINGRIX VACCINE(1 of 2) Never done PNEUMOCOCCAL: 65+(2 - PCV) due on 02/16/2015 DTAP,TDAP,TD(2 - Td or Tdap) due on 10/02/2016 COLORECTAL CANCER SCREENING due on 03/31/2020 ADVANCE DIRECTIVE DISCUSSION Never done DEPRESSION ASSESSMENT Never done ANNUAL PCP TEAM CHRONIC DISEASE VISIT due on 05/03/2022 MAMMOGRAM due on 03/29/2023 DIABETES SCREEN due on 05/03/2024 LIPID SCREEN due on 01/19/2025 BONE DENSITY Completed INFLUENZA Completed COVID-19 VACCINE Completed Data reviewed [facility] ASSESSMENT/PLAN: 1. Essential hypertension, benign - ICD9: 401.1, ICD10: I10 (primary diagnosis) - good control - Discontinue lisinopril (Zestril/Prinivil) and start Losartan 25 mg once daily - Recommended regular aerobic exercise. - Recommend home blood pressure monitoring, to bring results in on next visit - Goal of BP <130/80 - LOSARTAN 25 MG TABLET - COMP METABOLIC PANEL - LIPID PANEL BASIC 2. Acquired hypothyroidism - ICD9: 244.9, ICD10: E03.9 - Instructed patient on importance of taking on an empty stomach either first thing in the morning or at bedtime. - Check labs today, will call with results. - Continue current medication regimen. - TSH BLD 3. Moderate persistent asthma without complication - ICD9: 493.90, ICD10: J45.40 Mild intermittent Asthma stable - Continue current meds - Avoidance of triggers recommended 4. 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 (HCC) - ICD9: 174.9, ICD10: C50.912 - Cont f/u with Hem/Onc - CBC + DIFF 5. Obesity, Class III, BMI 40-49.9 (morbid obesity) (HCC) - ICD9: 278.01, ICD10: E66.01 Weight decreasing - Continue watching diet and exercise Complete labs today, will call with results. F/u up Annually. I agree with the Chief Complaint, ROS, and Past Histories independently gathered by the clinical decision support analyst and the remaining scribed note accurately describes my personal service to the patient. Medical Decision Making: Problems: Moderate: 2+ stable chronic illnesses Data: Unique test(s) ordered: 3+ Risk: Moderate: Drug management Medical Decision Making Level: 4 - Moderate Juanita Emmanuel MD The documentation for this note was completed by Mar Ahmadi Ma acting as scribe for Juanita Emmanuel MD. May 15, 2022 8:33 AM. Mar Ahmadi Ma documented in this encounter [facility] 04-25-2022 History of Present illness Narrative Chief Complaint Patient presents with: Established Patient HPI: Kendy Alba is a 66 year old female who presents here today for follow up breast cancer. Per Dr. Chairez's previous note: H/o PMH significant for asthma (daily Pulmicort; infrequent rescue inhaler use), HTN and hypothyroidism who had a screening mammogram done in February 2014 that suggested a possible new or enlarging nodular density in the upper outer left breast. Additional imaging was recommended and carried out on 04/08/2014. Additional mammography views demonstrated an irregular soft tissue nodule with some smooth round calcifications. Targeted ultrasound showed a 1.4 cm hypoechoic nodular density with internal vascularity in shadowing likely representing malignancy. Ultrasound-guided core biopsy performed on 05/07/2014 demonstrated invasive ductal carcinoma nuclear grade 1. Ductal carcinoma in situ was also observed. The specimen was positive for estrogen receptors greater than 95% staining strongly. Progesterone receptors were quantified at 75% with moderate. HER-2 was 1+. The patient underwent breast conserving surgery consisting of a lumpectomy and left axillary sentinel lymph node biopsy on 07/01/2014. The final pathology demonstrated a single focus of tumor measuring 1.5 cm in maximum dimension. DCIS was present and comprised approximately 80% of the total tumor volume. The nuclear grade was 2 of the DCIS. Histologic grade of the malignancy was 2. Final histologic type was invasive duct carcinoma with focal apocrine features. Margins were negative with the closest being 1.5 cm. Lymphovascular invasion was not identified. One sentinel lymph node was retrieved and was negative for disease. Healed well. No h/o HRT use. Radiation treatment:08/25/14 to 09/22/14 Current therapy:Arimidex Began September 2014. No new concerns today. Appetite:Good. I've lost weight. I cut out pop and I walk. Wt. down 10# from last visit. Energy level:Good. Walks daily to achieve 10,000 steps daily. Denies fevers or recent illness. Resp:denies cough or sob, occ. osman with steps h/o asthma-uses inhaler Cardiac:denies chest pain/palpitations GI:denies abd pain, n/v, moving bowels regularly :denies dysuria/hematuria Extrem:denies pain to back/bones/joints Endo:denies hot flashes Neuro:denies symptoms of neuropathy Skin:denies rashes/lesions Heme:denies bleeding The ROS is otherwise negative. Past medical history, appointments, medications, allergies reviewed. No changes. EXAM: BP 132/82 Pulse 66 Temp 36.7 C (98 F) (Temporal) Wt 78 kg (172 lb) LMP 06/27/2005 BMI 35.95 kg/m APPEARANCE Well appearing, alert, in no acute distress, well-hydrated, well nourished. HEART RRR with normal S1 and S2, no murmurs LUNG clear to auscultation BREAST FEMALE no mass/nodule b/l, L radiation changes LYMPH NODES No cervical lymphadenopathy, No supraclavicular lymphadenopathy, and No axillary lymphadenopathy. ABDOMEN bowel sounds normoactive, soft, non-tender, non-distended EXTREMITIES No edema NEURO Awake, alert and oriented x 3, Normal gait, and No involuntary motions. SKIN Skin color, texture, turgor normal, no suspicious rashes or lesions RADIOLOGY: Mammogram 03/29/22: IMPRESSION: BENIGN FINDING There is no mammographic evidence of malignancy. A 1 year screening mammogram is recommended. The exam was reviewed by a staff physician. ASSESSMENT/PLAN: 1. 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 (HCC) - ICD9: 174.9, ICD10: C50.912 pT1c (1.5 cm; grade 2; no LVI) pN0(sn) MX ER/LA positive HER2 negative invasive ductal carcinoma of the left breast. - No concerning findings on exam. - Tolerating arimidex well. - Will complete therapy once her prescription runs out approx. 2022. - Reviewed mammogram with pt. - Encouraged pt. to have colonoscopy-she declined. - Mammogram due 2022. - Follow up in 6 months. - Pt. aware to call office with any questions/concerns. The patient indicates understanding of these issues and agrees with the plan. All documentation from previous visit of 10/09/21-Dr. Chairez/myself was copied and pasted, documentation has been reviewed and edited as necessary for today's visit. Candace Cardona APRN.[place] documented in this encounter [facility] 03-29-2022 History of Present illness Narrative Radiology Service Progress Note PATIENT NAME: Kendy Alba DATE OF SERVICE: March 29, 2022 TIME: 9:09 AM PATIENT IDENTITY VERIFICATION COMPLETED USING TWO (2) IDENTIFIERS: Name and Date of confirmed by patient verbally. FALL SCREENING: Has the patient had 2 falls in the last year or 1 fall with injury or currently using an Ambulatory Assistive Device (Walker, Cane, Wheelchair, Crutches, etc.)? No PATIENT GENDER DATA: Female. status: : No status: NO. PATIENT RELEVANT IMPLANT DATA REVIEWED: Not Applicable RADIOLOGY DEPARTMENT: Mammography PERIPHERAL IV DATA: Not applicable SIGNED BY: RT Whit(R) March 29, 2022 9:09 AM documented in this encounter [facility] 01-16-2022 Miscellaneous Notes The following approved medication requests have been transmitted electronically. Signed Prescriptions Disp Refills montelukast (SINGULAIR) 10 mg tablet 90 tablet 3 Sig: Take 1 tablet by mouth daily at bedtime. LEATHA: No Authorizing Provider: JUANITA EMMANUEL Ma OK to refill as ordered Juanita Emmanuel MD Patient has been identified by name and date of : Yes Pending Prescriptions Disp Refills MONTELUKAST 10 MG TABLET 90 tablet 3 Sig: Take 1 tablet by mouth daily at bedtime. LEATHA: No TANYA 05/03/21Apr None scheduled, pt notified that she is in need of appt and to please schedule. RX INSTRUCTIONS: Patient aware RX will be sent to pharmacy. No need to notify patient. Sarai Nuñez Ma documented in this encounter [facility] 11-14-2021 Miscellaneous Notes The following approved medication requests have been transmitted electronically. Pending Prescriptions Disp Refills HYDROCHLOROTHIAZIDE 25 MG TABLET 90 tablet 3 Sig: Take 1 tablet by mouth daily with breakfast. LEATHA: No Espinoza Fajardo APRN.CNP Patient last visit 05/03/2021 Follow up appointment scheduled none Pratibha Gonzalez Ma documented in this encounter [facility] 11-14-2021 Miscellaneous Notes The following approved medication requests have been transmitted electronically. Pending Prescriptions Disp Refills BUDESONIDE 180 MCG/ACTUATION BREATH ACTIVATED POWDER INHALER 3 Each 3 Sig: Inhale 1 Puff as instructed twice daily. One puff twice daily. LEATHA: No Espinoza Fajardo APRN.CNP Patient last visit with PCP 05/03/2021 Follow up appointment scheduled none Pratibha Gonzalez Ma documented in this encounter [facility] 11-14-2021 Miscellaneous Notes The following approved medication requests have been transmitted electronically. Pending Prescriptions Disp Refills LISINOPRIL 5 MG TABLET 60 tablet 11 Sig: Take 1 tablet by mouth twice daily. LEATHA: No Espinoza Fajardo APRN.CNP Patient last visit with PCP 05/03/2021 Follow up appointment scheduled none Pratibha Gonzalez Ma documented in this encounter [facility] 10-09-2021 History of Present illness Narrative Chief Complaint Patient presents with: Established Patient HPI: Kendy Alba is a 65 year old female who presents here today for follow up breast cancer. Per Dr. Chairez's previous note: H/o PMH significant for asthma (daily Pulmicort; infrequent rescue inhaler use), HTN and hypothyroidism who had a screening mammogram done in February 2014 that suggested a possible new or enlarging nodular density in the upper outer left breast. Additional imaging was recommended and carried out on 04/08/2014. Additional mammography views demonstrated an irregular soft tissue nodule with some smooth round calcifications. Targeted ultrasound showed a 1.4 cm hypoechoic nodular density with internal vascularity in shadowing likely representing malignancy. Ultrasound-guided core biopsy performed on 05/07/2014 demonstrated invasive ductal carcinoma nuclear grade 1. Ductal carcinoma in situ was also observed. The specimen was positive for estrogen receptors greater than 95% staining strongly. Progesterone receptors were quantified at 75% with moderate. HER-2 was 1+. The patient underwent breast conserving surgery consisting of a lumpectomy and left axillary sentinel lymph node biopsy on 07/01/2014. The final pathology demonstrated a single focus of tumor measuring 1.5 cm in maximum dimension. DCIS was present and comprised approximately 80% of the total tumor volume. The nuclear grade was 2 of the DCIS. Histologic grade of the malignancy was 2. Final histologic type was invasive duct carcinoma with focal apocrine features. Margins were negative with the closest being 1.5 cm. Lymphovascular invasion was not identified. One sentinel lymph node was retrieved and was negative for disease. Healed well. No h/o HRT use. Radiation treatment:08/25/14 to 09/22/14 Current therapy:Arimidex Began September 2014. No new concerns today. Appetite:Good. Energy level:Good. Just like usual. Walks in her home daily to achieve 10,000 steps daily. Denies fevers or recent illness. Resp:denies cough or sob, occ. osman with steps h/o asthma-uses inhaler Cardiac:denies chest pain/palpitations GI:denies abd pain, n/v, moving bowels regularly :denies dysuria/hematuria Extrem:denies pain to back/bones/joints Endo:denies hot flashes Neuro:denies symptoms of neuropathy Skin:denies rashes/lesions Heme:denies bleeding The ROS is otherwise negative. Past medical history, appointments, medications, allergies reviewed. No changes. EXAM: BP 125/73 Pulse 62 Temp 36.4 C (97.6 F) (Temporal) Ht 147.3 cm (4' 10) Wt 82.6 kg (182 lb) LMP 06/27/2005 BMI 38.04 kg/m APPEARANCE Well appearing, alert, in no acute distress, well-hydrated, well nourished. HEART RRR with normal S1 and S2, no murmurs LUNG clear to auscultation BREAST FEMALE no mass/nodule b/l, L radiation changes LYMPH NODES No cervical lymphadenopathy, No supraclavicular lymphadenopathy and No axillary lymphadenopathy. ABDOMEN bowel sounds normoactive, soft, non-tender, non-distended, without organomegaly or palpable masses EXTREMITIES No edema NEURO Awake, alert and oriented x 3, Normal gait and No involuntary motions. SKIN Skin color, texture, turgor normal, no suspicious rashes or lesions ASSESSMENT/PLAN: 1. 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 (HCC) - ICD9: 174.9, ICD10: C50.912 (primary diagnosis) pT1c (1.5 cm; grade 2; no LVI) pN0(sn) MX ER/LA positive HER2 negative invasive ductal carcinoma of the left breast. - No concerning findings on exam. - Tolerating arimidex well. - Stop arimidex. Pt. has now completed 7 years of AI therapy. - Encouraged pt. to have colonoscopy-she declined. - Mammogram due 2021. - Follow up after above. - Pt. aware to call office with any questions/concerns. The patient indicates understanding of these issues and agrees with the plan. All documentation from previous visit of 04/03/21-Dr. Chairez/myself was copied and pasted, documentation has been reviewed and edited as necessary for today's visit. Candace Cardona APRN.[place] documented in this encounter [facility] 09-18-2021 Miscellaneous Notes OK to refill as ordered Juanita Emmanuel MD Last OV: 05/03/21 Next OV: None. Last Rx: 04/25/21 #90 w/0. Pt was to be seen in office in 1 month. No appt. documented in this encounter [facility] Evaluation note Diagnosis Essential hypertension, benign [facility] 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 (HCC)- Primary Encounter for screening mammogram for high-risk [facility] Essential hypertension, benign [facility] Diagnosis Essential hypertension, benign [facility] Diagnosis 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 (HCC) Encounter for screening mammogram for high-risk patient [facility] Diagnosis 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 (HCC)- Primary Encounter for screening mammogram for high-risk patient Personal history of breast cancer Personal history of malignant neoplasm of breast [facility] Diagnosis Essential hypertension, benign- Primary Acquired hypothyroidism Unspecified hypothyroidism Moderate persistent asthma without complication Unspecified asthma 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 (HCC) Obesity, Class III, BMI 40-49.9 (morbid obesity) (HCC) Morbid obesity [facility] Diagnosis Essential hypertension, benign [facility] Diagnosis 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 (HCC)- Primary Abnormality of right breast on screening mammogram [facility] Diagnosis Essential hypertension, benign [facility]* Diagnosis Uncomplicated asthma, unspecified asthma severity, unspecified whether persistent [facility]* Diagnosis Encounter for screening mammogram for high-risk patient Personal history of breast cancer Personal history of malignant neoplasm of breast [facility] Diagnosis Essential hypertension, benign- Primary Acquired hypothyroidism Unspecified hypothyroidism [facility]* Diagnosis 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 (HCC) Abnormality of right breast on screening mammogram documented in this encounter [facility] note* Diagnosis 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 (HCC) Abnormality of right breast on screening mammogram [facility] Diagnosis Personal history of breast cancer- Primary Personal history of malignant neoplasm of breast 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 (HCC) Abnormal mammogram of right breast documented in this encounter [facility] note* Diagnosis Psoriasis Other psoriasis documented in this encounter [facility] note* Diagnosis Personal history of breast cancer Personal history of malignant neoplasm of breast 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 (HCC) Abnormal mammogram of right breast [facility]* Diagnosis Personal history of breast cancer Personal history of malignant neoplasm of breast 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 (HCC) Abnormal mammogram of right breast documented in this encounter [facility] note* Diagnosis Personal history of breast cancer- Primary Personal history of malignant neoplasm of breast Abnormal mammogram of right breast documented in this encounter [facility] note* Diagnosis Abnormal mammogram- Primary Abnormal mammogram, unspecified documented in this encounter [facility] note* Diagnosis Uncomplicated asthma, unspecified asthma severity, unspecified whether persistent documented in this encounter [facility] note* Diagnosis Abnormal mammogram- Primary Abnormal mammogram, unspecified documented in this encounter [facility] note* Diagnosis Cellulitis of skin- Primary Cellulitis and abscess of unspecified site Calf swelling Swelling of limb Varicose veins of calf [facility]* Diagnosis Varicose veins of calf Calf swelling Swelling of limb documented in this encounter [facility] note* Diagnosis Abnormal mammogram Abnormal mammogram, unspecified [facility]* Diagnosis Fibroadenoma of breast, right- Primary [facility]* Diagnosis COVID- Primary documented in this encounter [facility] note* Diagnosis Essential hypertension, benign documented in this encounter [facility] note* Diagnosis Fibroadenoma of breast, right [facility] Diagnosis Essential hypertension, benign- Primary Acquired hypothyroidism Unspecified hypothyroidism [facility]* Diagnosis Essential hypertension, benign- Primary Psoriasis Other psoriasis Screening for depression Encounter for screening examination for other mental health and behavioral disorders Encounter for screening mammogram for malignant neoplasm of breast Other screening mammogram Acquired hypothyroidism Unspecified hypothyroidism Moderate persistent asthma without complication (HCC) Unspecified asthma Rosacea [facility] Encounter for screening mammogram for malignant neoplasm of breast Other screening mammogram documented in this encounter [facility] for referral (narrative)* Diagnostic Procedure Only (Routine) - Authorized Specialty Diagnoses / Procedures Referred By Gem bolivar Referred To Contact [facility] Diagnoses 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 (HCC) Encounter for screening mammogram for high-risk patient Procedures NICHOLAS SCREENING W IVAN SCREENING DIGITAL BREAST TOMOSYNTHESIS BI SCREENING MAMMOGRAPHY BI 2-VIEW BREAST INC Candace Hines APRN.CNP [address] [place] [address] [facility] [address] [place] [address] Referral ID Status Reason Start Date Expiration Date Visits Requested Visits Authorized [id number] Authorized Auto-Generat ed Referral 10/09/2021 11/08/2022 1 1 [facility] for referral (narrative)* Diagnostic Procedure Only (Routine) - Closed Specialty Diagnoses / Procedures Referred By Gem bolivar Referred To Contact [facility] Diagnoses 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 (HCC) Encounter for screening mammogram for high-risk patient Procedures NICHOLAS SCREENING W IVAN SCREENING DIGITAL BREAST TOMOSYNTHESIS BI SCREENING MAMMOGRAPHY BI 2-VIEW BREAST INC Candace Hines APRN.HAND CANDLE DIPPER [address] [place] [address] [facility] [address] [place] [address] Referral ID Status Reason Start Date Expiration Date V isits Requested Visits Authorized [id number] Closed Auto-Generate d Referral 10/09/2021 11/08/2022 1 1 [facility] for referral (narrative)* Diagnostic Procedure Only (Routine) - Pending Review Specialty Diagnoses / Procedures Referred By Gem bolivar Referred To Contact [facility] Diagnoses Encounter for screening mammogram for high-risk patient Personal history of breast cancer Procedures NICHOLAS SCREENING W IVAN SCREENING DIGITAL BREAST TOMOSYNTHESIS BI SCREENING MAMMOGRAPHY BI 2-VIEW BREAST INC CAD Candace Cardona APRN.HAND CANDLE DIPPER [address] [place] [address] [facility] [address] [place] [address] Referral ID Status Reason Start Date Expiration Date Visits Requested Visits Authorized [id number] Pending Review Auto-Generat ed Referral 04/25/2022 05/25/2023 1 1 [facility] for referral (narrative)* Diagnostic Procedure Only (Routine) - Authorized Specialty Diagnoses / Procedures Referred By Gem bolivar Referred To Contact [facility] Diagnoses 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 (HCC) Abnormality of right breast on screening mammogram Procedures US BREAST LTD RIGHT US BREAST UNI REAL TIME WITH IMAGE LIMITED Candace Cardona APRN.HAND CANDLE DIPPER [address] [place] [address] [facility] [address] [place] [address] Referral ID Status Reason Start Date Expiration Date Visits Requested Visits Authorized [id number] Authorized Auto-Generat ed Referral 05/16/2024 1 1 * Diagnostic Procedure Only (Routine) - Authorized Specialty Diagnoses / Procedures Referred By Gem bolivar Referred To Contact [facility] Diagnoses 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 (HCC) Abnormality of right breast on screening mammogram Procedures NICHOLAS DIAGNOSTIC RIGHT DIAGNOSTIC MAMMOGRAPHY COMPUTER-AIDED DETCJ UNI Candace Cardona APRN.HAND CANDLE DIPPER [address] [place] [address] [facility] [address] [place] [address] Referral ID Status Reason Start Date Expiration Date Visits Requested Visits Authorized [id number] Authorized Auto-Generat ed Referral 05/16/2024 1 1 [facility] for referral (narrative)* Diagnostic Procedure Only (Routine) - Closed Specialty Diagnoses / Procedures Referred By Contac t Referred To Contact [facility] Diagnoses Encounter for screening mammogram for high-risk patient Personal history of breast cancer Procedures NICHOLAS SCREENING W IVAN SCREENING DIGITAL BREAST TOMOSYNTHESIS BI SCREENING MAMMOGRAPHY BI 2-VIEW BREAST INC CAD Candace Cardona APRN.CNP [address] [place] [address] [facility] [address] [place] [address] Referral ID Status Reason Start Date Expiration Date V isits Requested Visits Authorized [id number] Closed Auto-Generate d Referral 04/25/2022 05/25/2023 1 1 [facility] for referral (narrative)* Diagnostic Procedure Only (Routine) - Closed Specialty Diagnoses / Procedures Referred By Contvikki t Referred To Contact [facility] Diagnoses 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 (HCC) Abnormality of right breast on screening mammogram Procedures US BREAST LTD RIGHT US BREAST UNI REAL TIME WITH IMAGE LIMITED Candace Cardona APRN.HAND CANDLE DIPPER [address] [place] [address] [facility] [address] [place] [address] Referral ID Status Reason Start Date Expiration Date V isits Requested Visits Authorized [id number] Closed Auto-Generate d Referral 04/17/2023 05/16/2024 1 1 [facility] for referral (narrative)* Diagnostic Procedure Only (Routine) - Authorized Specialty Diagnoses / Procedures Referred By Contac t Referred To Contact [facility] Diagnoses Personal history of breast cancer 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 (HCC) Abnormal mammogram of right breast Procedures US BREAST LTD RIGHT US BREAST UNI REAL TIME WITH IMAGE LIMITED Candace Cardona APRN.CNP [address] [place] [address] [facility] [address] [place] [address] Referral ID Status Reason Start Date Expiration Date Visits Requested Visits Authorized [id number] Authorized Auto-Generat ed Referral 3 06/20/2024 1 1 * Diagnostic Procedure Only (Routine) - Authorized Specialty Diagnoses / Procedures Referred By Contac t Referred To Contact [facility] Diagnoses Personal history of breast cancer 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 (HCC) Abnormal mammogram of right breast Procedures NICHOLAS DIAGNOSTIC RIGHT DIAGNOSTIC MAMMOGRAPHY COMPUTER-AIDED DETCJ UNI Candace Cardona APRN.HAND CANDLE DIPPER [address] [place] [address] [facility] [address] [place] [address] Referral ID Status Reason Start Date Expiration Date Visits Requested Visits Authorized [id number] Authorized Auto-Generat ed Referral 3 06/20/2024 1 1 [facility] for referral (narrative)* Diagnostic Procedure Only (Routine) - Closed Specialty Diagnoses / Procedures Referred By Contac t Referred To Contact [facility] Diagnoses Personal history of breast cancer 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 (HCC) Abnormal mammogram of right breast Procedures US BREAST LTD RIGHT US BREAST UNI REAL TIME WITH IMAGE LIMITED Candace Cardona APRN.HAND CANDLE DIPPER [address] [place] [address] [facility] [address] [place] [address] Referral ID Status Reason Start Date Expiration Date V isits Requested Visits Authorized [id number] Closed Auto-Generate d Referral 05/22/2023 06/20/2024 1 1 [facility] for referral (narrative)* Diagnostic Procedure Only (Routine) - New Request Specialty Diagnoses / Procedures [facility] Diagnoses Abnormal mammogram Procedures US BIOPSY BREAST RIGHT BX BREAST W/DEVICE 1ST LESION ULTRASOUND GUID Eze Linn MD [address] [facility] [place] [address] [facility] Imaging [address] [place] [address] Referral ID Status Reason Start Date Expiration Date Visits Requested Visits Authorized [id number] New Request Auto-Generat ed Referral 01/06/2024 02/04/2025 1 1 [facility] for referral (narrative)* Diagnostic Procedure Only (Urgent) - Closed Specialty Diagnoses / Procedures [facility] To Contact [facility] Diagnoses Varicose veins of calf Calf swelling Procedures US DVT LOWER RIGHT DUP-SCAN XTR VEINS UNILATERAL/LIMITED STUDY Melissa Hansen APRN.HAND CANDLE DIPPER [address] [place] [address] [place] [address] Referral ID Status Reason Start Date Expiration Date V isits Requested Visits Authorized [id number] Closed Auto-Generate d Referral 01/15/2024 02/13/2025 1 1 * Outpatient Procedure (Urgent) - New Request Specialty Diagnoses / Procedures [facility] Diagnoses Varicose veins of calf Calf swelling Procedures US LEG VEIN DVT UNL VAS LAB DUP-SCAN XTR VEINS UNILATERAL/LIMITED STUDY Melissa Hansen APRN.CNP [address] [place] [address] [facility] [address] [place] [address] Referral ID Status Reason Start Date Expiration Date Visits Requested Visits Authorized [id number] New Request Auto-Generat ed Referral 01/15/2024 01/14/2025 1 1 [facility] for referral (narrative)* Diagnostic Procedure Only (Urgent) - Closed Specialty Diagnoses / Procedures Referred By Contac t Referred To Contact [facility] Diagnoses Varicose veins of calf Calf swelling Procedures US DVT LOWER RIGHT DUP-SCAN XTR VEINS UNILATERAL/LIMITED STUDY Melissa Hansen, HEATHER.HAND CANDLE DIPPER [address] [place] [address] [place] [address] Referral ID Status Reason Start Date Expiration Date V isits Requested Visits Authorized [id number] Closed Auto-Generate d Referral 01/15/2024 02/13/2025 1 1 [facility] for referral (narrative)* Diagnostic Procedure Only (Routine) - Closed Specialty Diagnoses / Procedures [facility] Ref[facility] To Contact [facility] Diagnoses Abnormal mammogram Procedures US BIOPSY BREAST RIGHT BX BREAST W/DEVICE 1ST LESION ULTRASOUND GUID Eze Linn MD [address] [facility] [place] [address] [facility] Imaging [address] [place] [id number] Referral ID Status Reason Start Date Expiration Date V isits Requested Visits Authorized [id number] Closed Auto-Generate d Referral 01/06/2024 02/04/2025 1 1 [facility] for referral (narrative)* Diagnostic Procedure Only (Routine) - Authorized Specialty Diagnoses / Procedures [facility] Ref[facility] To Contact [facility] Diagnoses Fibroadenoma of breast, right Procedures NICHOLAS DIAGNOSTIC RIGHT DIAGNOSTIC MAMMOGRAPHY COMPUTER-AIDED DETCJ UNI Eze Linn MD [address] [facility] [place] [address] [facility] [address] [place] [address] Referral ID Status Reason Start Date Expiration Date Visits Requested Visits Authorized [id number] Authorized Auto-Generat ed Referral 08/12/2024 03/11/2025 1 1 [facility] for visit Narrative* Diagnostic Procedure Only (Routine) - Closed Specialty Diagnoses / Procedures Referred By Gem bolivar Referred To Contact [facility] Diagnoses 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 (HCC) Encounter for screening mammogram for high-risk patient Procedures NICHOLAS SCREENING W IVAN SCREENING DIGITAL BREAST TOMOSYNTHESIS BI SCREENING MAMMOGRAPHY BI 2-VIEW BREAST INC [facility] Candace, RN CARDIOVASCULAR ICU.HAND CANDLE DIPPER [address] [place] [address] [facility] [address] [place] [address] Referral ID Status Reason Start Date Expiration Date V isits Requested Visits Authorized [id number] Closed Auto-Generate d Referral 10/09/2021 11/08/2022 1 1 [facility] for visit Narrative* Diagnostic Procedure Only (Routine) - Closed Specialty Diagnoses / Procedures Referred By Gem bolivar Referred To Contact [facility] Diagnoses Encounter for screening mammogram for high-risk patient Personal history of breast cancer Procedures NICHOLAS SCREENING W IVAN SCREENING DIGITAL BREAST TOMOSYNTHESIS BI SCREENING MAMMOGRAPHY BI 2-VIEW BREAST INC [facility] Dulce Candace, RN CARDIOVASCULAR ICU.HAND CANDLE DIPPER [address] [place] [address] [facility] [address] [place] [address] Referral ID Status Reason Start Date Expiration Date V isits Requested Visits Authorized [id number] Closed Auto-Generate d Referral 04/25/2022 05/25/2023 1 1 [facility] for visit Narrative* Diagnostic Procedure Only (Routine) - Closed Specialty Diagnoses / Procedures Referred By Gem bolivar Referred To Contact [facility] Diagnoses 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 (HCC) Abnormality of right breast on screening mammogram Procedures NICHOLAS DIAGNOSTIC RIGHT DIAGNOSTIC MAMMOGRAPHY COMPUTER-AIDED DETCJ [facility] Candace Cardona, RN CARDIOVASCULAR ICU.HAND CANDLE DIPPER [address] [place] [address] [facility] Imaging [address] [place] [address] Referral ID Status Reason Start Date Expiration Date V isits Requested Visits Authorized [id number] Closed Auto-Generate d Referral 04/17/2023 05/16/2024 1 1 [facility] for visit Narrative* Diagnostic Procedure Only (Routine) - Closed Specialty Diagnoses / Procedures Referred By Justinac t Referred To Contact [facility] Diagnoses Personal history of breast cancer 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 (HCC) Abnormal mammogram of right breast Procedures NICHOLAS DIAGNOSTIC RIGHT DIAGNOSTIC MAMMOGRAPHY COMPUTER-AIDED DETCJ UNI Candace Cardona, HEATHER.HAND CANDLE DIPPER [address] [place] [address] [facility] [address] [place] [address] Referral ID Status Reason Start Date Expiration Date V isits Requested Visits Authorized [id number] Closed Auto-Generate d Referral 05/22/2023 06/20/2024 1 1 [facility] for visit Narrative* Diagnostic Procedure Only (Routine) - Closed Specialty Diagnoses / Procedures Referred By eGm t Referred To Contact [facility] Diagnoses Personal history of breast cancer 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 (HCC) Abnormal mammogram of right breast Procedures US BREAST LTD RIGHT US BREAST UNI REAL TIME WITH IMAGE LIMITED Candace Cardona APRN.HAND CANDLE DIPPER [address] [place] [address] [facility] [address] [place] [address] Referral ID Status Reason Start Date Expiration Date V isits Requested Visits Authorized [id number] Closed Auto-Generate d Referral 05/22/2023 06/20/2024 1 1 [facility] for visit Narrative* Diagnostic Procedure Only (Urgent) - Closed Specialty Diagnoses / Procedures Referred By Justinac t Referred To Contact [facility] Diagnoses Varicose veins of calf Calf swelling Procedures US DVT LOWER RIGHT DUP-SCAN XTR VEINS UNILATERAL/LIMITED STUDY Melissa Hansen, HEATHER.HAND CANDLE DIPPER [address] [place] [address] [place] [address] Referral ID Status Reason Start Date Expiration Date V isits Requested Visits Authorized [id number] Closed Auto-Generate d Referral 01/15/2024 02/13/2025 1 1 [facility] for visit Narrative* Diagnostic Procedure Only (Routine) - Closed Specialty Diagnoses / Procedures Referred By Contac t Referred To Contact [facility] Diagnoses Abnormal mammogram Procedures US BIOPSY BREAST RIGHT BX BREAST W/DEVICE 1ST LESION ULTRASOUND GUID Eze Linn MD [address] [place] [address] [facility] [address] [place] [address] Referral ID Status Reason Start Date Expiration Date V isits Requested Visits Authorized [id number] Closed Auto-Generate d Referral 01/06/2024 02/04/2025 1 1 [facility] for visit Narrative* Diagnostic Procedure Only (Routine) - Closed Specialty Diagnoses / Procedures Referred By Gem t Referred To Contact [facility] Diagnoses Fibroadenoma of breast, right Procedures NICHOLAS DIAGNOSTIC RIGHT DIAGNOSTIC MAMMOGRAPHY COMPUTER-AIDED DETCJ UNI Eze Linn MD [address] [place] [address] Phone: tel: fax: [facility] [address] [place] [address] Referral ID Status Reason Start Date Expiration Date V isits Requested Visits Authorized [id number] Closed Auto-Generate d Referral 08/12/2024 03/11/2025 1 1 [facility] for visit Narrative* Diagnostic Procedure Only (Routine) - Closed Specialty Diagnoses / Procedures Referred By Gem t Referred To Contact [facility] Diagnoses Encounter for screening mammogram for malignant neoplasm of breast Procedures NICHOLAS SCREENING W IVAN SCREENING DIGITAL BREAST TOMOSYNTHESIS BI SCREENING MAMMOGRAPHY BI 2-VIEW BREAST INC Juanita Higginbotham MD [address] [place] [address] Phone: tel: fax: [facility] [address] [place] [address] Referral ID Status Reason Start Date Expiration Date V isits Requested Visits Authorized [id number] Closed Auto-Generate d Referral 01/21/2025 02/20/2026 1 1 [facility] Summary Purpose Family History No Family History Records FoundNo Family History Records Found Advance Directives No Advanced Directives Records FoundNo Advanced Directives Records Found Additional Source Comments Source Comments (unrecognize d section and content) In the event this informatio n is protected by the Federal Confidentiality of Alcohol and Drug Abuse Patient Records regulations: The Federal rules restrict any use of the information to criminally investigate or prosecute any alcohol or drug abuse patient.[facility] the event this information is protected by the Federal Confidentiality of Alcohol and Drug Abuse Patient Records regulations: The Federal rules restrict any use of the information to criminally investigate or prosecute any alcohol or drug abuse patient.[facility] Hospital[facility] the event this information is protected by the Federal Confidentiality of Alcohol and Drug Abuse Patient Records regulations: The Federal rules restrict any use of the information to criminally investigate or prosecute any alcohol or drug abuse patient.[facility] Hospital[facility] the event this information is protected by the Federal Confidentiality of Alcohol and Drug Abuse Patient Records regulations: The Federal rules restrict any use of the information to criminally investigate or prosecute any alcohol or drug abuse patient.[facility] HospitalIn the event this information is protected by the Federal Confidentiality of Alcohol and Drug Abuse Patient Records regulations: The Federal rules restrict any use of the information to criminally investigate or prosecute any alcohol or drug abuse patient.[facility] Hospital[facility] the event this information is protected by the Federal Confidentiality of Alcohol and Drug Abuse Patient Records regulations: The Federal rules restrict any use of the information to criminally investigate or prosecute any alcohol or drug abuse patient.[facility] HospitalIn the event this information is protected by the Federal Confidentiality of Alcohol and Drug Abuse Patient Records regulations: The Federal rules restrict any use of the information to criminally investigate or prosecute any alcohol or drug abuse patient.[facility] HospitalIn the event this information is protected by the Federal Confidentiality of Alcohol and Drug Abuse Patient Records regulations: The Federal rules restrict any use of the information to criminally investigate or prosecute any alcohol or drug abuse patient.[facility] HospitalIn the event this information is protected by the Federal Confidentiality of Alcohol and Drug Abuse Patient Records regulations: The Federal rules restrict any use of the information to criminally investigate or prosecute any alcohol or drug abuse patient.[facility] HospitalIn the event this information is protected by the Federal Confidentiality of Alcohol and Drug Abuse Patient Records regulations: The Federal rules restrict any use of the information to criminally investigate or prosecute any alcohol or drug abuse patient.[facility] HospitalIn the event this information is protected by the Federal Confidentiality of Alcohol and Drug Abuse Patient Records regulations: The Federal rules restrict any use of the information to criminally investigate or prosecute any alcohol or drug abuse patient.[facility] HospitalIn the event this information is protected by the Federal Confidentiality of Alcohol and Drug Abuse Patient Records regulations: The Federal rules restrict any use of the information to criminally investigate or prosecute any alcohol or drug abuse patient.[facility] HospitalIn the event this information is protected by the Federal Confidentiality of Alcohol and Drug Abuse Patient Records regulations: The Federal rules restrict any use of the information to criminally investigate or prosecute any alcohol or drug abuse patient.[facility] HospitalIn the event this information is protected by the Federal Confidentiality of Alcohol and Drug Abuse Patient Records regulations: The Federal rules restrict any use of the information to criminally investigate or prosecute any alcohol or drug abuse patient.[facility] HospitalIn the event this information is protected by the Federal Confidentiality of Alcohol and Drug Abuse Patient Records regulations: The Federal rules restrict any use of the information to criminally investigate or prosecute any alcohol or drug abuse patient.[facility] HospitalIn the event this information is protected by the Federal Confidentiality of Alcohol and Drug Abuse Patient Records regulations: The Federal rules restrict any use of the information to criminally investigate or prosecute any alcohol or drug abuse patient.[facility] HospitalIn the event this information is protected by the Federal Confidentiality of Alcohol and Drug Abuse Patient Records regulations: The Federal rules restrict any use of the information to criminally investigate or prosecute any alcohol or drug abuse patient.[facility] HospitalIn the event this information is protected by the Federal Confidentiality of Alcohol and Drug Abuse Patient Records regulations: The Federal rules restrict any use of the information to criminally investigate or prosecute any alcohol or drug abuse patient.[facility] HospitalIn the event this information is protected by the Federal Confidentiality of Alcohol and Drug Abuse Patient Records regulations: The Federal rules restrict any use of the information to criminally investigate or prosecute any alcohol or drug abuse patient.[facility] HospitalIn the event this information is protected by the Federal Confidentiality of Alcohol and Drug Abuse Patient Records regulations: The Federal rules restrict any use of the information to criminally investigate or prosecute any alcohol or drug abuse patient.[facility] HospitalIn the event this information is protected by the Federal Confidentiality of Alcohol and Drug Abuse Patient Records regulations: The Federal rules restrict any use of the information to criminally investigate or prosecute any alcohol or drug abuse patient.[facility] HospitalIn the event this information is protected by the Federal Confidentiality of Alcohol and Drug Abuse Patient Records regulations: The Federal rules restrict any use of the information to criminally investigate or prosecute any alcohol or drug abuse patient.[facility] HospitalIn the event this information is protected by the Federal Confidentiality of Alcohol and Drug Abuse Patient Records regulations: The Federal rules restrict any use of the information to criminally investigate or prosecute any alcohol or drug abuse patient.[facility] HospitalIn the event this information is protected by the Federal Confidentiality of Alcohol and Drug Abuse Patient Records regulations: The Federal rules restrict any use of the information to criminally investigate or prosecute any alcohol or drug abuse patient.[facility] HospitalIn the event this information is protected by the Federal Confidentiality of Alcohol and Drug Abuse Patient Records regulations: The Federal rules restrict any use of the information to criminally investigate or prosecute any alcohol or drug abuse patient.[facility] HospitalIn the event this information is protected by the Federal Confidentiality of Alcohol and Drug Abuse Patient Records regulations: The Federal rules restrict any use of the information to criminally investigate or prosecute any alcohol or drug abuse patient.[facility] HospitalIn the event this information is protected by the Federal Confidentiality of Alcohol and Drug Abuse Patient Records regulations: The Federal rules restrict any use of the information to criminally investigate or prosecute any alcohol or drug abuse patient.[facility] HospitalIn the event this information is protected by the Federal Confidentiality of Alcohol and Drug Abuse Patient Records regulations: The Federal rules restrict any use of the information to criminally investigate or prosecute any alcohol or drug abuse patient.[facility] HospitalIn the event this information is protected by the Federal Confidentiality of Alcohol and Drug Abuse Patient Records regulations: The Federal rules restrict any use of the information to criminally investigate or prosecute any alcohol or drug abuse patient.[facility] HospitalIn the event this information is protected by the Federal Confidentiality of Alcohol and Drug Abuse Patient Records regulations: The Federal rules restrict any use of the information to criminally investigate or prosecute any alcohol or drug abuse patient.[facility] HospitalIn the event this information is protected by the Federal Confidentiality of Alcohol and Drug Abuse Patient Records regulations: The Federal rules restrict any use of the information to criminally investigate or prosecute any alcohol or drug abuse patient.[facility] HospitalIn the event this information is protected by the Federal Confidentiality of Alcohol and Drug Abuse Patient Records regulations: The Federal rules restrict any use of the information to criminally investigate or prosecute any alcohol or drug abuse patient.[facility] HospitalIn the event this information is protected by the Federal Confidentiality of Alcohol and Drug Abuse Patient Records regulations: The Federal rules restrict any use of the information to criminally investigate or prosecute any alcohol or drug abuse patient.[facility] HospitalIn the event this information is protected by the Federal Confidentiality of Alcohol and Drug Abuse Patient Records regulations: The Federal rules restrict any use of the information to criminally investigate or prosecute any alcohol or drug abuse patient.[facility] HospitalIn the event this information is protected by the Federal Confidentiality of Alcohol and Drug Abuse Patient Records regulations: The Federal rules restrict any use of the information to criminally investigate or prosecute any alcohol or drug abuse patient.[facility] HospitalIn the event this information is protected by the Federal Confidentiality of Alcohol and Drug Abuse Patient Records regulations: The Federal rules restrict any use of the information to criminally investigate or prosecute any alcohol or drug abuse patient.[facility] HospitalIn the event this information is protected by the Federal Confidentiality of Alcohol and Drug Abuse Patient Records regulations: The Federal rules restrict any use of the information to criminally investigate or prosecute any alcohol or drug abuse patient.[facility] HospitalIn the event this information is protected by the Federal Confidentiality of Alcohol and Drug Abuse Patient Records regulations: The Federal rules restrict any use of the information to criminally investigate or prosecute any alcohol or drug abuse patient.[facility] HospitalIn the event this information is protected by the Federal Confidentiality of Alcohol and Drug Abuse Patient Records regulations: The Federal rules restrict any use of the information to criminally investigate or prosecute any alcohol or drug abuse patient.[facility] HospitalIn the event this information is protected by the Federal Confidentiality of Alcohol and Drug Abuse Patient Records regulations: The Federal rules restrict any use of the information to criminally investigate or prosecute any alcohol or drug abuse patient.[facility] HospitalIn the event this information is protected by the Federal Confidentiality of Alcohol and Drug Abuse Patient Records regulations: The Federal rules restrict any use of the information to criminally investigate or prosecute any alcohol or drug abuse patient.[facility] HospitalIn the event this information is protected by the Federal Confidentiality of Alcohol and Drug Abuse Patient Records regulations: The Federal rules restrict any use of the information to criminally investigate or prosecute any alcohol or drug abuse patient.[facility] HospitalIn the event this information is protected by the Federal Confidentiality of Alcohol and Drug Abuse Patient Records regulations: The Federal rules restrict any use of the information to criminally investigate or prosecute any alcohol or drug abuse patient.[facility] HospitalIn the event this information is protected by the Federal Confidentiality of Alcohol and Drug Abuse Patient Records regulations: The Federal rules restrict any use of the information to criminally investigate or prosecute any alcohol or drug abuse patient.[facility] HospitalIn the event this information is protected by the Federal Confidentiality of Alcohol and Drug Abuse Patient Records regulations: The Federal rules restrict any use of the information to criminally investigate or prosecute any alcohol or drug abuse patient.[facility] HospitalIn the event this information is protected by the Federal Confidentiality of Alcohol and Drug Abuse Patient Records regulations: The Federal rules restrict any use of the information to criminally investigate or prosecute any alcohol or drug abuse patient.[facility] HospitalIn the event this information is protected by the Federal Confidentiality of Alcohol and Drug Abuse Patient Records regulations: The Federal rules restrict any use of the information to criminally investigate or prosecute any alcohol or drug abuse patient.[facility] HospitalIn the event this information is protected by the Federal Confidentiality of Alcohol and Drug Abuse Patient Records regulations: The Federal rules restrict any use of the information to criminally investigate or prosecute any alcohol or drug abuse patient.[facility] HospitalIn the event this information is protected by the Federal Confidentiality of Alcohol and Drug Abuse Patient Records regulations: The Federal rules restrict any use of the information to criminally investigate or prosecute any alcohol or drug abuse patient.[facility] HospitalIn the event this information is protected by the Federal Confidentiality of Alcohol and Drug Abuse Patient Records regulations: The Federal rules restrict any use of the information to criminally investigate or prosecute any alcohol or drug abuse patient.[facility] HospitalIn the event this information is protected by the Federal Confidentiality of Alcohol and Drug Abuse Patient Records regulations: The Federal rules restrict any use of the information to criminally investigate or prosecute any alcohol or drug abuse patient.[facility] HospitalIn the event this information is protected by the Federal Confidentiality of Alcohol and Drug Abuse Patient Records regulations: The Federal rules restrict any use of the information to criminally investigate or prosecute any alcohol or drug abuse patient.[facility] HospitalIn the event this information is protected by the Federal Confidentiality of Alcohol and Drug Abuse Patient Records regulations: The Federal rules restrict any use of the information to criminally investigate or prosecute any alcohol or drug abuse patient.[facility] Reason for Visit (unrecogniz ed section and content) Reason Onset Date Comments Refill Request 09/18/2021 Reason Comments Established Patient Reason Onset Date Comments Refill Request 11/14/2021 Reason Onset Date Comments Refill Request 01/16/2022 Reason Comments Medicare Wellness Exam Reason Comments Results Reason Onset Date Comments Refill Request 01/16/2023 Reason Comments Mammogram Result Call Back Reason Comments Orders Reason Onset Date Comments Refill Request 04/20/2023 Reason Comments Orders Reason Comments Radiology US Specialty Diagnoses / Procedures Referred By Contac t Referred To Contact [facility] Diagnoses 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 (HCC) Abnormality of right breast on screening mammogram Procedures US BREAST LTD RIGHT US BREAST UNI REAL TIME WITH IMAGE LIMITED Candace Cardona APRN.HAND CANDLE DIPPER [address] [place] [address] [facility] [address] [place] [address] Referral ID Status Reason Start Date Expiration Date V isits Requested Visits Authorized [id number] Closed Auto-Generate d Referral 04/17/2023 05/16/2024 1 1 Reason Comments Established Patient Reason Comments Established Patient Specialty Diagnoses / Procedures Referred By Contac t Referred To Contact [facility] Diagnoses Personal history of breast cancer 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 (HCC) Abnormal mammogram of right breast Procedures US BREAST LTD RIGHT US BREAST UNI REAL TIME WITH IMAGE LIMITED Candace Cardona APRN.HAND CANDLE DIPPER [address] [place] [address] [facility] [address] [place] [address] Referral ID Status Reason Start Date Expiration Date V isits Requested Visits Authorized [id number] Closed Auto-Generate d Referral 05/22/2023 06/20/2024 1 1 Reason Comments Consult Right breast consult Reason Onset Date Comments Refill Request 01/06/2024 Reason Comments Procedure Ultrasound Guided Brown nd Held Mammotome Biopsy right breast Reason Comments Mammogram Abnormality Reason Comments Acute Visit cellulitis on bilat legs Reason Comments Results DVT US Reason Comments Follow Up 8/7 breast bx Reason Comments Covid Positive Per home test, patie nt is positive for covid Reason Comments Covid Positive Reason Onset Date Comments Refill Request 03/16/2024 Reason Onset Date Comments Refill Request 03/17/2024 Reason Onset Date Comments Population Health Navigation Outreach 10/27/2024 Craig/Workbench/ACO Reason Comments Follow Up Reason Onset Date Comments Population Health Navigation Outreach 02/02/2025 Craig/Workbench/ACO Care Teams (unrecognized sec tion and content) Tool And Fixture Repairer Relationship Specialty Start Date End Date Juanita Emmanuel MD [address] [place] [address] PCP - General 12/12/09 Tool And Fixture Repairer Relationship Specialty Start Date End Date Juanita Emmanuel MD [address] [facility] [place] [address] PCP - General 12/12/09 Tool And Fixture Repairer Relationship Specialty Start Date End Date Juanita Emmanuel MD [address] [facility] [place] [address] PCP - General 12/12/09 Tool And Fixture Repairer Relationship Specialty Start Date End Date Juanita Emmanuel MD [address] [facility] [place] [address] PCP - General 12/12/09 Tool And Fixture Repairer Relationship Specialty Start Date End Date Juanita Emmanuel MD [address] [place] [address], [place] [address] PCP - General 12/12/09 Tool And Fixture Repairer Relationship Specialty Start Date End Date Juanita Emmanuel MD [facility] [facility] [place] [address] PCP - General 12/12/09 Tool And Fixture Repairer Relationship Specialty Start Date End Date Juanita Emmanuel MD [address] [facility] [place] [address] PCP - General 12/12/09 Tool And Fixture Repairer Relationship Specialty Start Date End Date Juanita Emmanuel MD [address] [facility] [place] [address] PCP - General 12/12/09 Tool And Fixture Repairer Relationship Specialty Start Date End Date Juanita Emmanuel MD [address] [facility] [place] [address] PCP - General 12/12/09 Tool And Fixture Repairer Relationship Specialty Start Date End Date Juanita Emmanuel MD [facility] [place] [address] PCP - General 12/12/09 Tool And Fixture Repairer Relationship Specialty Start Date End Date Juanita Emmanuel MD [address] [place] [address] PCP - General 12/12/09 Tool And Fixture Repairer Relationship Specialty Start Date End Date Juanita Emmanuel MD [address] [place] [address] PCP - General 12/12/09 Tool And Fixture Repairer Relationship Specialty Start Date End Date Juanita Emmanuel MD [address] [place] [address] PCP - General 12/12/09 Tool And Fixture Repairer Relationship Specialty Start Date End Date Juanita Emmanuel MD [address] [place] [address] PCP - General 12/12/09 Tool And Fixture Repairer Relationship Specialty Start Date End Date Juanita Emmanuel MD [address] [place] [address] PCP - General 12/12/09 Tool And Fixture Repairer Relationship Specialty Start Date End Date Juanita Emmanuel MD [address] [place] [address] PCP - General 12/12/09 Tool And Fixture Repairer Relationship Specialty Start Date End Date Juanita Emmanuel MD [address] [place] [address] PCP - General 12/12/09 Tool And Fixture Repairer Relationship Specialty Start Date End Date Juanita Emmanuel MD [address] [place] [address] PCP - General 12/12/09 Tool And Fixture Repairer Relationship Specialty Start Date End Date Juanita Emmanuel MD [address] [place] [address] PCP - General 12/12/09 Tool And Fixture Repairer Relationship Specialty Start Date End Date Juanita Emmanuel MD [address] [place] [address] PCP - General 12/12/09 Tool And Fixture Repairer Relationship Specialty Start Date End Date Juanita Emmanuel MD [address] [place] [address] PCP - General 12/12/09 Tool And Fixture Repairer Relationship Specialty Start Date End Date Juanita Emmanuel MD [address] [place] [address] PCP - General 12/12/09 Tool And Fixture Repairer Relationship Specialty Start Date End Date Juanita Emmanuel MD [address] [place] [address] PCP - General 12/12/09 Tool And Fixture Repairer Relationship Specialty Start Date End Date Juanita Emmanuel MD [address] [place] [address] PCP - General 12/12/09 Tool And Fixture Repairer Relationship Specialty Start Date End Date Juanita Emmanuel MD [address] [place] [address] PCP - General 12/12/09 Tool And Fixture Repairer Relationship Specialty Start Date End Date Juanita Emmanuel MD [address] [place] [address] PCP - General 12/12/09 Tool And Fixture Repairer Relationship Specialty Start Date End Date Juanita Emmanuel MD [address] [place] [address] PCP - General 12/12/09 Tool And Fixture Repairer Relationship Specialty Start Date End Date Juanita Emmanuel MD [address] [place] [address] PCP - General 12/12/09 Melissa Hansen RN CARDIOVASCULAR ICU.HAND CANDLE DIPPER [address] [place] [address] Cash Management Associate Family Medicine 05/31/24 Espinoza Fajardo RN CARDIOVASCULAR ICU.HAND CANDLE DIPPER [address] [place] [address] [employer] Associate Family [facility] 06/09/24 Tool And Fixture Repairer Relationship Specialty Start Date End Date Juanita Emmanuel MD [address] [place] [address] PCP - General 12/12/09 Melissa Hansen, RN CARDIOVASCULAR ICU.HAND CANDLE DIPPER [address] [place] [address] [employer] Associate Family [facility] 05/31/24 Espinoza Fajardo RN CARDIOVASCULAR ICU.HAND CANDLE DIPPER [address] [place] [address] [employer] Associate Family [facility] 06/09/24 Tool And Fixture Repairer Relationship Specialty Start Date End Date Juanita Emmanuel MD [address] [place] [address] PCP - General 12/12/09 Espinoza Fajrado RN CARDIOVASCULAR ICU.HAND CANDLE DIPPER [address] [facility] [place] [address] Cash Management Associate [facility] 06/09/24 Tool And Fixture Repairer Relationship Specialty Start Date End Date Juanita Emmanuel MD [address] [place] [address] PCP - General 12/12/09 Espinoza Fajardo APRN.HAND CANDLE DIPPER [address] [place] [address] Cash Management Associate [facility] 06/09/24 Tool And Fixture Repairer Relationship Specialty Start Date End Date Juanita Emmanuel MD [address] [place] [address] PCP - General 12/12/09 Espinoza Fajardo RN CARDIOVASCULAR ICU.HAND CANDLE DIPPER [address] [place] [address] [facility] Tool And Fixture Repairer Relationship Specialty Start Date End Date Juanita Emmanuel MD [address] [place] [address] PCP - General 12/12/09 Espinoza Fajardo APRN.HAND CANDLE DIPPER [address] [place] [address] [facility] 06/09/24 Tool And Fixture Repairer Relationship Specialty Start Date End Date Juanita Emmanuel MD [address] [place] [address] PCP - General 12/12/09 Espinoza Fajardo APRN.HAND CANDLE DIPPER [address] [place] [address] Cash Management Associate Family [facility] 06/09/24 INFORMATION SOURCE (unrecogn ized section and content) DATE CREATED AUTHOR 01/31/2024 [facility] DATE CREATED AUTHOR AUTHOR'Daroi DAS 02/06/2025 [facility] FOR RECORDS PERTAINING TO PATIENTS WHO ARE OR HAVE BEEN ENROLLED IN A CHEMICAL DEPENDENCY/SUBSTANCEABUSE PROGRAM, SOME INFORMATION MAY BE OMITTED. This clinical summary was aggregated from multiple sources. Caution should be exercised in using it in the provision of clinical care. This summary normalizes information from multiple sources, and as a consequence, information in this document may materially change the coding, format and clinical context of patient data. In addition, data may be omitted in some cases. CLINICAL DECISIONS SHOULD BE BASED ON THE PRIMARY CLINICAL RECORDS. [employer] provides no warranty or guarantee of the accuracy or completeness of information in this document.
[2025-02-22 10:32] LABS: Hematocrit 49.0 % (37-47); Hemoglobin 17.1 g/dL (12.0-15.0); Immature Granulocytes Count 0.020 X10^3/uL (0.0-0.0); Mean Corp Hgb Conc 34.9 g/dL (32-36); Mean Corpuscular Volume 83.9 fL (81-99); Mean Platelet Vol. 9.6 fl (6.2-12.0); NRBC Flagged by Analyzer 0 % (0-5); Platelet Count 218 K/mm3 (150-450); RBC Distribution Width CV 14.6 % (11.6-14.6); RBC Distribution Width SD 44.0 fl (35.1-43.9); Red Blood Count 5.84 M/mm3 (4.2-5.4); White Blood Count 7.1 K/mm3 (4.4-11.0)
[2025-02-22 10:41] LABS: Prothrombin Time (Protime)PT. 13.1 SECONDS (11.7-14.9)
[2025-02-22 10:42] LABS: Partial Thromboplast Time 24.6 Seconds (24.1-36.2)
[2025-02-22 10:50] LABS: Anion Gap 13 (5-15); BUN 12 mg/dL (4-19); BUN/Creat Ratio 15.4 RATIO (10-20); Calcium,Total 9.4 mg/dL (7.6-11.0); Carbon Dioxide 22.6 mmol/L (21.0-32.0); Chloride 97 mmol/L (98-108); Estimated Creatinine Clearance 62.55 ml/min (50-250); Glucose 108 mg/dL (70-99); Potassium 4.1 mmol/L (3.3-5.1); Troponin T High Sensitivity 10 ng/L (<=14)
== END 2025-02-22 11:31 | disposition short-term general hospital (02) ==
PROVIDERS: Emergency Provider Emergency Medicine; PCP Family Medicine; Visit Provider Emergency Medicine
DX: I63.412 Cerebral infarction due to embolism of left middle cerebral artery (principal); I48.92 Unspecified atrial flutter; I10 Essential (primary) hypertension; Z87.891 Personal history of nicotine dependence
CPT/HCPCS: 70450; 70496; 70498; 80048; 84484; 85025; 85610; 85730; 93005; 99285; Q9967

== ENCOUNTER → 2025-05-07 | Outpatient (CLI) | payer OTHER, MEDICARE, SELFPAY ==
--- NOTE | 2025-05-07 11:47 | RAD_ITS ---
PROCEDURE: CHEST PA AND LATERAL 05/07/2025 REASON FOR EXAM: LEFT PLEURAL EFFUSION TECHNIQUE: Procedure Code: RADCXR Modality: DX Procedure: CHEST PA AND LATERAL COMPARISON: None FINDINGS: Hardware: None Heart: Borderline cardiomegaly. Mediastinum: The mediastinal contour is unremarkable. Lungs: Small left pleural effusion with left basilar atelectasis and/or infiltrate. Blunting of the right costophrenic angle posteriorly. Mild degree of vascular congestion. Bones: Degenerative changes are identified within the thoracic spine. RAD/Chest PA and Lateral IMPRESSION: Small left pleural effusion with left basilar infiltration and/or atelectasis. Blunting of the right costophrenic angle. Vascular congestion. Reading Location: [place] [address]
== END | disposition home or self-care (01) ==
LOC: RAD 11:45
PROVIDERS: PCP Family Medicine; Referring Provider Internal Medicine Cardiovascular Disease; Visit Provider Internal Medicine Cardiovascular Disease
DX: J90 Pleural effusion, not elsewhere classified (principal); Z87.01 Personal history of pneumonia (recurrent)
CPT/HCPCS: 71046

== ENCOUNTER → 2025-06-21 | Outpatient (CLI) | payer MEDICARE, OTHER, SELFPAY ==
[2025-06-21 13:27] LABS: Anion Gap 13 (7-18); BUN 12 mg/dL (4-19); BUN/Creat Ratio 19.0 RATIO (10-20); Calcium,Total 8.7 mg/dL (7.6-11.0); Carbon Dioxide 32.5 mmol/L (20.0-29.0); Chloride 96 mmol/L (96-106); Glucose 98 mg/dL (70-99); Potassium 3.1 mmol/L (3.5-5.1)
== END | disposition home or self-care (01) ==
LOC: LABSPEC 12:31
PROVIDERS: PCP Family Medicine; Referring Provider Internal Medicine Cardiovascular Disease; Visit Provider Internal Medicine Cardiovascular Disease
DX: N17.9 Acute kidney failure, unspecified (principal); Z79.899 Other long term (current) drug therapy
CPT/HCPCS: 80048